=== PATIENT | female | born 1940 | race Caucasian/White ===

== ENCOUNTER → 2021-07-18 10:17 | Outpatient (BNVA) | payer SELFPAY | PROVIDERS: Visit Provider Psychiatry & Neurology Neurology ==

== ENCOUNTER → 2021-11-14 13:02 | Outpatient (BNVA) | payer MEDICARE, OTHER, SELFPAY | PROVIDERS: PCP Nurse Practitioner Adult Health; Visit Provider Psychiatry & Neurology Neurology | DX: G20 Parkinson's disease (principal); F09 Unspecified mental disorder due to known physiological condition | CPT/HCPCS: 99212 ==

== ENCOUNTER → 2022-06-17 13:53 | Outpatient (BNVA) | payer MEDICARE, OTHER, SELFPAY | PROVIDERS: PCP Nurse Practitioner Adult Health; Visit Provider Psychiatry & Neurology Neurology | DX: G20 Parkinson's disease (principal); F09 Unspecified mental disorder due to known physiological condition; Z79.899 Other long term (current) drug therapy | CPT/HCPCS: 99212 ==

== ENCOUNTER → 2022-12-19 11:23 | Outpatient (BNVA) | payer MEDICARE, OTHER, SELFPAY | PROVIDERS: PCP Nurse Practitioner Adult Health; Visit Provider Psychiatry & Neurology Neurology | DX: G20 Parkinson's disease (principal); F09 Unspecified mental disorder due to known physiological condition | CPT/HCPCS: 99212 ==

== ENCOUNTER 2023-06-23 15:14 | Outpatient (AMB) | payer MEDICARE, OTHER, SELFPAY ==
--- NOTE | 2023-06-23 15:27 | MHC.OFFVIS ---
Intake Vital Signs 06/23/23 15:30 Height 5 ft 4 in BP 118/70 Blood Pressure Location Rt brachial Position Sitting Respiration 17 Pulse 74 Pulse Source Pulse Oximeter Pulse Oximetry (%) 96 Oxygen Delivery Method Room Air Intake Visit Reasons: 6 mnts f/u appt-lvm Intake Note: Pt presents for a 6 month follow up for cognitive disorder. University Relations Vice President Required: No Allergies latex Allergy (Mild, Verified 06/23/23 15:30) unknown Medication List - Last Reconciled 06/23/23 by Yuly Natarajan MD amantadine HCl 100 mg PO BID carbidopa-levodopa 25-100 mg 1 tab PO .5 times a day 90 days carbidopa-levodopa 50-200 mg ER 1 tab PO BEDTIME citalopram 40 mg PO DAILY docusate sodium (Colace) 100 mg PO DAILY donepezil 5 mg PO DAILY ibuprofen 400 mg PO Q8H polyethylene glycol 3350 (Miralax) 17 grams PO DAILY PRN HPI HPI Comments History of Present Illness Details 82y/o female with parkinsons disease, cognitive impairment Ben DBS September 2018 comes for follow up.she has declined since her last visit.last month she had UTI . she increased her sinemet dose as recommended but decreased it after a week. Her daughter lives with her. she uses a walker and walks on her toes. she has multiple falls 1/month its usually in her kitchen but they have decreased since the daughter moved in. she misses medications sometimes. she feels her memory is worse now. she sees cats and sometimes has no insight Mild increased confusion in the evenings Bowel movements are stable- once every 4 days she has been breathing heavy and wheezing . Her daughter feels she has labored breathing . Mood is stable - has on and off depression she has help with her morning personal hygiene. she is doing the exercises at home.she plays cards and has friend that goes out with she is at a high risk of falls , does not have the upper body strength to use her wheelchair and will benefit from a motorized wheelchair [facility] Medical History Cognitive disorder Parkinsons disease Arthritis Aneurysm of internal carotid artery Surgical History S/P deep brain stimulator placement No pertinent past surgical history Social History Alcohol intake: current Patient Tobacco Use Status: Never used Tobacco Physical Exam Vital Signs: Last Vital Signs Pulse 74 06/23/23 15:30 Resp 17 06/23/23 15:30 BP 118/70 06/23/23 15:30 Pulse Ox 96 06/23/23 15:30 Oxygen Delivery Method Room Air 06/23/23 15:30 Const General: cooperative, healthy appearing and comfortable Nutritional Appearance: overweight Orientation/consciousness: patient oriented x3 HEENT Head: Yes normal to inspection Neuro Other: mild decreased blink and facial expression speech- softer No tremors FFM and foot taps decreased mildly L>R In wheel chair General: patient oriented x3 Assessment & Plan Assessment & Plan (1) Cognitive disorder: Code(s): F09 - Unspecified mental disorder due to known physiological condition (2) Parkinsons disease: Code(s): G20 - Parkinson's disease Plan zyrtec Flonase Sinemet 25/100 1 tab 4times a day ( misses the 5 th dose most of the time) sinemet CR 50/200 qhs Motorized wheel chair to help with mobility Increase DISTRIBUTION ANALYST hrs Coding Level of Care Code Est Pt Level 4 (45302) Diagnoses Cognitive disorder F09 Parkinsons disease G20
[2023-06-23 15:30] VITALS: BP 118/70; PULSE 74; RESP 17; O2SAT 96
== END 2023-06-23 16:15 | disposition home or self-care (01) ==
PROVIDERS: PCP Nurse Practitioner Adult Health; Visit Provider Psychiatry & Neurology Neurology
DX: G20.A1 Parkinson's disease without dyskinesia, without mention of fluctuations (principal); R41.89 Other symptoms and signs involving cognitive functions and awareness; R29.6 Repeated falls; Z99.3 Dependence on wheelchair; Z96.82 Presence of neurostimulator
CPT/HCPCS: 99214

== ENCOUNTER → 2023-06-23 15:14 | Outpatient (BNVA) | payer MEDICARE, OTHER, SELFPAY | PROVIDERS: PCP Nurse Practitioner Adult Health; Visit Provider Psychiatry & Neurology Neurology | DX: F09 Unspecified mental disorder due to known physiological condition (principal); G20.A1 Parkinson's disease without dyskinesia, without mention of fluctuations | CPT/HCPCS: 99212 ==

== ENCOUNTER 2023-12-25 14:58 | Outpatient (AMB) | payer MEDICARE, OTHER, SELFPAY ==
--- NOTE | 2023-12-25 15:10 | A.OFFVIS_ITS ---
Vital Signs 12/25/23 15:12 BP 136/70 Blood Pressure Location Rt brachial Position Sitting Respiration 16 Pulse 70 Pulse Source Pulse Oximeter Pulse Oximetry (%) 96 Oxygen Delivery Method Room Air Intake Visit Reasons: 6 mo f/u - LVM w/add Intake Note: Pt presents for a 6 month follow up for Cognitive disorder. Financial Reporting Specialist Required: No Allergies latex Allergy (Mild, Verified 12/25/23 15:10) unknown Medication List - Last Reconciled 12/25/23 by Yuly Natarajan MD amantadine HCl 100 mg PO BID carbidopa-levodopa 25-100 mg 1 tab PO .5 times a day 90 days carbidopa-levodopa 50-200 mg ER 1 tab PO BEDTIME citalopram 40 mg PO DAILY docusate sodium (Colace) 100 mg PO DAILY donepezil 5 mg PO DAILY ibuprofen 400 mg PO Q8H polyethylene glycol 3350 (Miralax) 17 grams PO DAILY PRN HPI Comments Details: 83y/o female with parkinsons disease, cognitive impairment Ben DBS September 2018 comes for follow up.she has multiple falls. she has electric wheelchair which she is uncomfortable using she sleeps OK SHe had nuplazid 1 tab which helped but she had leg swelling so she stopped.Her hallucinations are mild now. she frequently misses her doses of medications Her daughter lives with her. Bowel movements are stable- once every 4 days she has been breathing heavy and wheezing . Her daughter feels she has labored breathing . Mood is stable - has on and off depression she has help with her morning personal hygiene. she is doing the exercises at home.she plays cards and has friend that goes out with she is at a high risk of falls , does not have the upper body strength to use her wheelchair and will benefit from a motorized wheelchair [facility] Medical History Parkinson's disease with dyskinesia, with fluctuations Cognitive disorder Arthritis Aneurysm of internal carotid artery Surgical History S/P deep brain stimulator placement No pertinent past surgical history Social History Alcohol intake: current Patient Tobacco Use Status: Never used Tobacco Physical Exam Vital Signs: Last Vital Signs Pulse 70 12/25/23 15:12 Resp 16 12/25/23 15:12 BP 136/70 12/25/23 15:12 Pulse Ox 96 12/25/23 15:12 Oxygen Delivery Method Room Air 12/25/23 15:12 Const General: cooperative, healthy appearing and comfortable Nutritional Appearance: overweight Orientation/consciousness: patient oriented x3 HEENT Head: Yes normal to inspection Neuro Other: mild decreased blink and facial expression speech- softer No tremors FFM and foot taps decreased mildly L>R In wheel chair General: patient oriented x3 Assessment & Plan Assessment & Plan (1) Cognitive disorder: Code(s): F09 - Unspecified mental disorder due to known physiological condition Category: Medical (2) Parkinson's disease with dyskinesia, with fluctuations: Code(s): G20.B2 - Parkinson's disease with dyskinesia, with fluctuations Category: Medical (3) S/P deep brain stimulator placement: Comment: September 2018 Code(s): Z96.89 - Presence of other specified functional implants Category: Surgical Plan zyrtec Flonase Sinemet 25/100 1 tab 4times a day ( misses the 5 th dose most of the time) sinemet CR 50/200 qhs Motorized wheel chair to help with mobility Increase OCC MED PHYSICIAN hrs Medications: New fluticasone propionate 50 mcg/actuation (Flonase Allergy Relief) administer into each nostril 1 spray intranasal BID 16 grams 6RF Coding Level of Care Code Est Pt Level 4 (71990) Complex EM visit Add On G2211 Diagnoses Cognitive disorder F09 Parkinson's disease with dyskinesia, with fluctuations G20.B2 S/P deep brain stimulator placement Z96.89
[2023-12-25 15:12] VITALS: BP 136/70; PULSE 70; RESP 16; O2SAT 96
== END 2023-12-25 15:52 | disposition home or self-care (01) ==
PROVIDERS: PCP Nurse Practitioner Adult Health; Visit Provider Psychiatry & Neurology Neurology
DX: G20.B2 Parkinson's disease with dyskinesia, with fluctuations (principal); R41.89 Other symptoms and signs involving cognitive functions and awareness; Z96.82 Presence of neurostimulator
CPT/HCPCS: 99214; G2211

== ENCOUNTER → 2023-12-25 14:58 | Outpatient (BNVA) | payer MEDICARE, OTHER, SELFPAY | PROVIDERS: PCP Nurse Practitioner Adult Health; Visit Provider Psychiatry & Neurology Neurology | DX: G20.B2 Parkinson's disease with dyskinesia, with fluctuations (principal); F09 Unspecified mental disorder due to known physiological condition; Z96.82 Presence of neurostimulator; Z99.3 Dependence on wheelchair | CPT/HCPCS: 99212 ==

== ENCOUNTER 2024-07-26 15:29 | Outpatient (AMB) | payer MEDICARE, OTHER, SELFPAY ==
--- NOTE | 2024-07-26 15:30 | A.OFFVIS_ITS ---
Vital Signs 07/26/24 15:34 BP 140/72 H Blood Pressure Location Rt brachial Position Sitting Pulse 68 Pulse Source Pulse Oximeter Pulse Oximetry (%) 96 Oxygen Delivery Method Room Air Intake Visit Reasons: 6 month f/u Intake Note: Patient presents for 6 month follow up Allergies latex Allergy (Mild, Verified 07/26/24 15:32) unknown Medication List - Last Reconciled 07/26/24 by Yuly Natarajan MD amantadine HCl 100 mg PO BID carbidopa-levodopa 25-100 mg 1 tab PO .5 times a day 90 days carbidopa-levodopa 50-200 mg ER 1 tab PO BEDTIME citalopram 40 mg PO DAILY docusate sodium (Colace) 100 mg PO DAILY donepezil 5 mg PO DAILY fluticasone propionate 50 mcg/actuation (Flonase Allergy Relief) 1 spray intranasal BID ibuprofen 400 mg PO Q8H pimavanserin (Nuplazid) 34 mg PO DAILY polyethylene glycol 3350 (Miralax) 17 grams PO DAILY PRN HPI Comments Details: 83y/o female with parkinsons disease, cognitive impairment Ben DBS September 2018 comes for follow up.No falls since she started using her wheel chair. she sleeps OK SHe restarted nuplazid when he hallucinations increased. .Her hallucinations are mild now and usually in the evening. she frequently misses her doses of medications. when she misses multiple doses she starts with sundowning and hallucinations. Her daughter lives with her. Bowel movements are stable- once every 4 days she has been breathing heavy and wheezing . Her daughter feels she has labored breathing . Mood is stable - has on and off depression she has help with her morning personal hygiene. she is doing the exercises at home. she used to play cards . she has a friend that takes her to lunch weekly shopping. [facility] Medical History Parkinson's disease with dyskinesia, with fluctuations Cognitive disorder Arthritis Aneurysm of internal carotid artery Surgical History S/P deep brain stimulator placement No pertinent past surgical history Social History Alcohol intake: current Patient Tobacco Use Status: Never used Tobacco Physical Exam Const General: cooperative, healthy appearing and comfortable Orientation/consciousness: patient oriented x3 HEENT Head: Yes normal to inspection Neuro Other: mild decreased blink and facial expression speech- softer No tremors FFM and foot taps decreased mildly L>R In wheel chair General: patient oriented x3 Assessment & Plan Assessment & Plan (1) Cognitive disorder: Code(s): F09 - Unspecified mental disorder due to known physiological condition Category: Medical (2) Parkinson's disease with dyskinesia, with fluctuations: Code(s): G20.B2 - Parkinson's disease with dyskinesia, with fluctuations Category: Medical (3) S/P deep brain stimulator placement: Comment: September 2018 Code(s): Z96.89 - Presence of other specified functional implants Category: Surgical Plan zyrtec Flonase Sinemet 25/100 1 tab 4times a day ( misses the 5 th dose most of the time) sinemet CR 50/200 qhs Motorized wheel chair to help with mobility Coding Level of Care Code Est Pt Level 4 (42319) Complex EM visit Add On G2211 Diagnoses Cognitive disorder F09 Parkinson's disease with dyskinesia, with fluctuations G20.B2 S/P deep brain stimulator placement Z96.89
[2024-07-26 15:34] VITALS: BP 140/72; PULSE 68; O2SAT 96
--- OUTSIDE RECORDS SUMMARY | 2024-07-26 18:43 | XMS_ITS | Clinical Summary ---
Author Organization Unknown Care Team Providers Care Reset Merchandiser Name Role Phone ROS CANAL BOAT OPERATOR, DAYTON Unavailable Unavailabl e ACE PT, CAMERON Unavailable Unavailable RODO SPANISH LECTURER, CAMERON Unavailable Unavailable HERMELINDO OT, FRANCIS Unavailable Unavailabl e Payers Payer Name Policy Type Policy Number Effective Date Expira tion Date MEDICARE.NGS.PDGM [id number] Problems Condition Name Condition Details Condition Category Status Onset Date Resolution Date Last Treatment Date Treating Clinician Comments PARKINSON'S DISEASE WITH DYSKINESIA, WITH FLUCTUATIONS Active 04-03 00:00: 00 REPEATED FALLS Active 04-03 00:00: 00 ESSENTIAL (PRIMARY) HYPERTENSION Active 07-07 00:00: 00 SOLITARY PULMONARY NODULE Active 04-03 00:00: 00 FREQUENCY OF MICTURITION Active 04-03 00:00: 00 URGENCY OF URINATION Active 04-03 00:00: 00 OTHER HAMMER TOE(S) (ACQUIRED), UNSPECIFIED FOOT Active 04-03 00:00: 00 OTHER CONGENITAL VALGUS DEFORMITIES OF FEET Active 04-03 00:00: 00 MIXED HYPERLIPIDEM IA Active 07-07 00:00: 00 VITREOUS DEGENERATION , UNSPECIFIED EYE Active 07-07 00:00: 00 MAJOR DEPRESSIVE DISORDER, SINGLE EPISODE, MODERATE Active 07-07 00:00: 00 PRESENCE OF NEUROSTIMULA TOR Active 4-14 00:00: 00 PERSONAL HISTORY OF COVID-19 Active 10-30 00:00: 00 PERSONAL HISTORY OF NICOTINE DEPENDENCE Active 07-07 00:00: 00 HISTORY OF FALLING Active 04-03 00:00: 00 Allergies, Adverse Reactions, Alerts Allergy Name Allergy Type Status Severity Reaction(s) Onset Date Inactive Date Treating Clinician Comments NO KNOWN ALLERGIES Propensity to adverse reactions Active 04-05 10:06: 04 Medications Ordered Medication Name Filled Medication Name Start Date Stop Date Current Medication? Ordering Clinician Indication Dosage Frequency Signature (SIG) Comments Components amantadine HCl 100 mg capsule 03-28 00:00: 00 Yes [id number] PD Per instruc tions TWICE A DAY Per instructio ns TWICE A DAY (route: oral) Med Classific ation: Central Nervous System Agents fluticasone propionate 50 mcg/actuati on nasal spray,suspe nsion 03-22 00:00: 00 Yes [id number] Per instruc tions TWICE A DAY Per instructio ns TWICE A DAY (route: nasal) Med Classific ation: Respirato ry Therapy Agents carbidopa 25 mg-levodopa 100 mg tablet 03-19 00:00: 00 Yes [id number] PD Per instruc tions 5 TIMES A DAY FOR 90 DAYS Per instructio ns 5 TIMES A DAY FOR 90 DAYS (route: oral) Med Classific ation: Central Nervous System Agents carbidopa 50 mg-levodopa 200 mg-entacapo ne 200 mg tablet 2023-07 00:00: 00 Yes [id number] PD 1 tablet BEDTIME 1 tablet BEDTIME (route: oral) Med Classific ation: Central Nervous System Agents citalopram 40 mg tablet 2023-07 00:00: 00 Yes [id number] DEPRESSION 1 tablet DAILY 1 tablet DAILY (route: oral) Med Classific ation: Central Nervous System Agents donepezil 5 mg tablet 2023-07 00:00: 00 Yes [id number] ALZHEIMER'S 1 tablet DAILY 1 tablet DAILY (route: oral) Med Classific ation: Cognitive Disorder Therapy ibuprofen 200 mg capsule 2023-07 00:00: 00 Yes [id number] PAIN 1-2 capsule 2 TIMES DAILY 1-2 capsule 2 TIMES DAILY (route: oral) Med Classific ation: Analgesic , Anti-infl ammatory or Antipyret ic Vital Signs Vital Name Observation Time Observation Value Commen ts Temperature 2024-06-04 14:23:00.000 97.6 [degF] Temperature 2024-05-19 11:36:00.000 97.7 [degF] Temperature 2024-05-18 11:08:00.000 98.1 [degF] Temperature 2024-05-12 10:41:00.000 98.2 [degF] Temperature 2024-05-11 10:55:00.000 98.1 [degF] Temperature 2024-05-05 21:23:00.000 98 [degF] Temperature 2024-05-05 14:04:00.000 97.9 [degF] Temperature 2024-04-27 14:30:00.000 97.4 [degF] Temperature 2024-04-23 11:41:00.000 98.1 [degF] Temperature 2024-04-21 11:11:00.000 97.9 [degF] Temperature 2024-04-16 11:14:00.000 97.9 [degF] Temperature 2024-04-12 10:58:00.000 97 [degF] Temperature 2024-04-07 10:39:00.000 97.6 [degF] BMI (%) 2024-04-07 10:39:00.000 30 kg/m2 Height 2024-04-07 10:39:00.000 64 [in_us] Pulse 2024-06-04 14:23:00.000 70 /min Pulse 2024-05-19 11:36:00.000 76 /min Pulse 2024-05-18 11:08:00.000 78 /min Pulse 2024-05-12 10:41:00.000 72 /min Pulse 2024-05-11 10:55:00.000 68 /min Pulse 2024-05-05 21:23:00.000 72 /min Pulse 2024-05-05 14:04:00.000 70 /min Pulse 2024-04-27 14:30:00.000 68 /min Pulse 2024-04-23 11:41:00.000 76 /min Pulse 2024-04-21 11:11:00.000 65 /min Pulse 2024-04-16 11:14:00.000 82 /min Pulse 2024-04-12 10:58:00.000 61 /min Pulse 2024-04-07 10:39:00.000 75 /min O2 Saturation (%) 2024-06-04 14:23:00.000 97 % O2 Saturation (%) 2024-05-19 11:36:00.000 98 % O2 Saturation (%) 2024-05-18 11:08:00.000 96 % O2 Saturation (%) 2024-05-12 10:41:00.000 95 % O2 Saturation (%) 2024-05-11 10:55:00.000 97 % O2 Saturation (%) 2024-05-05 21:23:00.000 98 % O2 Saturation (%) 2024-05-05 14:04:00.000 96 % O2 Saturation (%) 2024-04-27 14:30:00.000 95 % O2 Saturation (%) 2024-04-23 11:41:00.000 97 % O2 Saturation (%) 2024-04-21 11:11:00.000 94 % O2 Saturation (%) 2024-04-16 11:14:00.000 97 % O2 Saturation (%) 2024-04-12 10:58:00.000 94 % Respirations 2024-06-04 14:23:00.000 18 /min Respirations 2024-05-19 11:36:00.000 18 /min Respirations 2024-05-18 11:08:00.000 16 /min Respirations 2024-05-12 10:41:00.000 18 /min Respirations 2024-05-11 10:55:00.000 17 /min Respirations 2024-05-05 21:23:00.000 16 /min Respirations 2024-05-05 14:04:00.000 18 /min Respirations 2024-04-27 14:30:00.000 18 /min Respirations 2024-04-23 11:41:00.000 17 /min Respirations 2024-04-21 11:11:00.000 18 /min Respirations 2024-04-16 11:14:00.000 16 /min Respirations 2024-04-12 10:58:00.000 18 /min Respirations 2024-04-07 10:39:00.000 18 /min Weight (lbs) 2024-04-07 10:39:00.000 180 [lb_av] Systolic Blood Pressure 2024-06-04 14:23:00.000 130 mm [Hg] Systolic Blood Pressure 2024-05-19 11:36:00.000 146 mm [Hg] Systolic Blood Pressure 2024-05-18 11:08:00.000 134 mm [Hg] Systolic Blood Pressure 2024-05-12 10:41:00.000 136 mm [Hg] Systolic Blood Pressure 2024-05-11 10:55:00.000 148 mm [Hg] Systolic Blood Pressure 2024-05-05 21:23:00.000 132 mm [Hg] Systolic Blood Pressure 2024-05-05 14:04:00.000 146 mm [Hg] Systolic Blood Pressure 2024-04-27 14:30:00.000 160 mm [Hg] Systolic Blood Pressure 2024-04-23 11:41:00.000 140 mm [Hg] Systolic Blood Pressure 2024-04-21 11:11:00.000 116 mm [Hg] Systolic Blood Pressure 2024-04-16 11:14:00.000 150 mm [Hg] Systolic Blood Pressure 2024-04-12 10:58:00.000 116 mm [Hg] Systolic Blood Pressure 2024-04-07 10:39:00.000 110 mm [Hg] Diastolic Blood Pressure 2024-06-04 14:23:00.000 72 mm [Hg] Diastolic Blood Pressure 2024-05-19 11:36:00.000 80 mm [Hg] Diastolic Blood Pressure 2024-05-18 11:08:00.000 82 mm [Hg] Diastolic Blood Pressure 2024-05-12 10:41:00.000 78 mm [Hg] Diastolic Blood Pressure 2024-05-11 10:55:00.000 88 mm [Hg] Diastolic Blood Pressure 2024-05-05 21:23:00.000 78 mm [Hg] Diastolic Blood Pressure 2024-05-05 14:04:00.000 74 mm [Hg] Diastolic Blood Pressure 2024-04-27 14:30:00.000 82 mm [Hg] Diastolic Blood Pressure 2024-04-23 11:41:00.000 90 mm [Hg] Diastolic Blood Pressure 2024-04-21 11:11:00.000 70 mm [Hg] Diastolic Blood Pressure 2024-04-16 11:14:00.000 90 mm [Hg] Diastolic Blood Pressure 2024-04-12 10:58:00.000 62 mm [Hg] Diastolic Blood Pressure 2024-04-07 10:39:00.000 64 mm [Hg] Plan of Treatment Planned Activity Planned Date Details Comments Future Scheduled Test THERAPEUTI C EXERCISES AND ESTABLISHING A HOME EXERCISE PROGRAM (PT/SPANISH LECTURER) [code = THERAPEUTIC EXERCISES AND ESTABLISHING A HOME EXERCISE PROGRAM (PT/SPANISH LECTURER)] Future Scheduled Test PT/SPANISH LECTURER TO IDENTIFY FALL RISK FACTORS; EDUCATE THE PATIENT/CAREGIVER ON WAYS TO REDUCE FALL RISK FACTORS AND ESTABLISH HOME EXERCISE PROGRAM TO MINIMIZE FALL RISK. MAY TEACH THE PATIENT FLOOR RECOVERY WHEN CLINICALLY APPROPRIATE [code = PT/SPANISH LECTURER TO IDENTIFY FALL RISK FACTORS; EDUCATE THE PATIENT/CAREGIVER ON WAYS TO REDUCE FALL RISK FACTORS AND ESTABLISH HOME EXERCISE PROGRAM TO MINIMIZE FALL RISK. MAY TEACH THE PATIENT FLOOR RECOVERY WHEN CLINICALLY APPROPRIATE] Future Scheduled Test BED TRANSF ERS (PT/SPANISH LECTURER) [code = BED TRANSFERS (PT/SPANISH LECTURER)] Future Scheduled Test SIT TO/FRO M STAND TRANSFERS (PT/SPANISH LECTURER) [code = SIT TO/FROM STAND TRANSFERS (PT/SPANISH LECTURER)] Future Scheduled Test PT / SPANISH LECTURER T O MONITOR AND EDUCATE ON OXYGEN SATURATION DURING ADLS/IADLS, NOTIFY PHYSICIAN AND/OR THE RN CLINICAL HYDRAULIC SPINNER FOR PHYSICIAN NOTIFICATION AND IF O2 SATS BELOW PHYSICIAN ORDERED PARAMETERS AFTER 10 MIN OF REST [code = PT / SPANISH LECTURER TO MONITOR AND EDUCATE ON OXYGEN SATURATION DURING ADLS/IADLS, NOTIFY PHYSICIAN AND/OR THE RN CLINICAL HYDRAULIC SPINNER FOR PHYSICIAN NOTIFICATION AND IF O2 SATS BELOW PHYSICIAN ORDERED PARAMETERS AFTER 10 MIN OF REST] Future Scheduled Test PT / SPANISH LECTURER M AY EDUCATE ON PAIN MANAGEMENT CLINICALLY INDICATED, INCLUDING NON-PHARMACOLOGICAL PAIN REDUCTION TECHNIQUES [code = PT / SPANISH LECTURER MAY EDUCATE ON PAIN MANAGEMENT CLINICALLY INDICATED, INCLUDING NON-PHARMACOLOGICAL PAIN REDUCTION TECHNIQUES ] Future Scheduled Test AGENCY MAY PERFORM A RESUMPTION OF CARE VISIT FOLLOWING ANY HOSPITAL ADMISSION. PT TO EVALUATE, OBSERVE / ASSESS, AND MONITOR, SPANISH LECTURER TO OBSERVE AND MONITOR, PROVIDE SKILLED THERAPEUTIC INTERVENTION, ACTIVITY, EDUCATION, AND TRAINING TO ADDRESS; [code = AGENCY MAY PERFORM A RESUMPTION OF CARE VISIT FOLLOWING ANY HOSPITAL ADMISSION. PT TO EVALUATE, OBSERVE / ASSESS, AND MONITOR, SPANISH LECTURER TO OBSERVE AND MONITOR, PROVIDE SKILLED THERAPEUTIC INTERVENTION, ACTIVITY, EDUCATION, AND TRAINING TO ADDRESS;] Future Scheduled Test WHEELCHAIR MOBILITY AND MANAGEMENT (PT/SPANISH LECTURER) [code = WHEELCHAIR MOBILITY AND MANAGEMENT (PT/SPANISH LECTURER)] Future Scheduled Test AGENCY MAY PERFORM A RESUMPTION OF CARE VISIT FOLLOWING ANY HOSPITAL ADMISSION. OT TO EVALUATE, OBSERVE / ASSESS, AND MONITOR, MITCHEL TO OBSERVE AND MONITOR, PROVIDE SKILLED THERAPEUTIC INTERVENTION, ACTIVITY, EDUCATION, AND TRAINING TO ADDRESS; ACTIVITIES OF DAILY LIVING (OT/INDUSTRIAL GARAGE SERVICER) TOILET TRANSFER (OT/INDUSTRIAL GARAGE SERVICER) BATH/SHOWER TRANSFER (OT/MITCHEL) HOME ACTIVITY / EXERCISE PROGRAM (OT/INDUSTRIAL GARAGE SERVICER) OT/INDUSTRIAL GARAGE SERVICER TO MONITOR AND EDUCATE ON OXYGEN SATURATION DURING ADLS/IADLS, NOTIFY PHYSICIAN AND/OR THE RN CLINICAL HYDRAULIC SPINNER FOR PHYSICIAN NOTIFICATION AND IF O2 SATS BELOW 90% AFTER 10 MIN OF REST. OT/MITCHEL MAY EDUCATE ON PAIN MANAGEMENT CLINICALLY INDICATED, INCLUDING NON-PHARMACOLOGICAL PAIN REDUCTION TECHNIQUES AND USE OF CRYOTHERAPY OR HEAT UP TO 20 MIN AT A TIME FOR PAIN MANAGEMENT TO BLE OT / INDUSTRIAL GARAGE SERVICER TO IDENTIFY FALL RISK FACTORS; EDUCATE THE PATIENT/CAREGIVER ON WAYS TO REDUCE FALL RISK FACTORS AND ESTABLISH HOME EXERCISE PROGRAM TO MINIMIZE FALL RISK. MAY TEACH THE PATIENT FLOOR RECOVERY WHEN CLINICALLY APPROPRIATE. OT / INDUSTRIAL GARAGE SERVICER TO EDUCATE ON PARKINSONS SELF MANAGEMENT [code = AGENCY MAY PERFORM A RESUMPTION OF CARE VISIT FOLLOWING ANY HOSPITAL ADMISSION. OT TO EVALUATE, OBSERVE / ASSESS, AND MONITOR, INDUSTRIAL GARAGE SERVICER TO OBSERVE AND MONITOR, PROVIDE SKILLED THERAPEUTIC INTERVENTION, ACTIVITY, EDUCATION, AND TRAINING TO ADDRESS; ACTIVITIES OF DAILY LIVING (OT/MITCHEL) TOILET TRANSFER (OT/MITCHEL) BATH/SHOWER TRANSFER (OT/INDUSTRIAL GARAGE SERVICER) HOME ACTIVITY / EXERCISE PROGRAM (OT/MITCHEL) OT/INDUSTRIAL GARAGE SERVICER TO MONITOR AND EDUCATE ON OXYGEN SATURATION DURING ADLS/IADLS, NOTIFY PHYSICIAN AND/OR THE RN CLINICAL HYDRAULIC SPINNER FOR PHYSICIAN NOTIFICATION AND IF O2 SATS BELOW 90% AFTER 10 MIN OF REST. OT/INDUSTRIAL GARAGE SERVICER MAY EDUCATE ON PAIN MANAGEMENT CLINICALLY INDICATED, INCLUDING NON-PHARMACOLOGICAL PAIN REDUCTION TECHNIQUES AND USE OF CRYOTHERAPY OR HEAT UP TO 20 MIN AT A TIME FOR PAIN MANAGEMENT TO BLE OT / MITCHEL TO IDENTIFY FALL RISK FACTORS; EDUCATE THE PATIENT/CAREGIVER ON WAYS TO REDUCE FALL RISK FACTORS AND ESTABLISH HOME EXERCISE PROGRAM TO MINIMIZE FALL RISK. MAY TEACH THE PATIENT FLOOR RECOVERY WHEN CLINICALLY APPROPRIATE. OT / INDUSTRIAL GARAGE SERVICER TO EDUCATE ON PARKINSONS SELF MANAGEMENT] Goal 2024-06-04 Patient Goal - I WANT TO NO T FALL DOWN Goal Provider Goal - PATIENT WILL DEMONSTRATE INDEPENDENCE WITH PERFORMANCE OF SEATED HEP AND STATIC STAND ACTIVITY IN 5 WEEKS TO PROMOTE IMPROVED FUNCTIONAL MOBILITY Goal Provider Goal - PT LTG: PATIENT/CAREGIVER WILL DEMONSTRATE ADHERENCE TO FALL REDUCTION SELF-MANAGEMENT AND REDUCING FALL RISK FACTORS TO MINIMIZE FALL RISK BY END OF EPISODE PT LTG: PATIENT WILL BE INDEPENDENT WITH IMPLEMENTATION OF HEP WITHIN 4 WEEKS PT LTG: CAREGIVER WILL BE INDEPENDENT ASSISTING PATIENT TO COMPLETE HEP WITHIN 4 WEEKS Goal Provider Goal - Goal Provider Goal - PATIENT WILL IMPROVE HOUSEHOLD TRANSFERS FROM CGA TO INDEPENDENT IN 5 WEEKS ATWC LEVEL TO PROMOTE IMPROVED FUNCTIONAL MOBILITY Goal Provider Goal - PT LTG: PATIENT WILL MAINTAIN OXYGEN SATURATION WITHIN PHYSICIAN ORDERED PARAMETERS THROUGHOUT EPISODE OF CARE. Goal Provider Goal - PT GOAL: PATIENT WILL DEMONSTRATE UNDERSTANDING OF PAIN MANAGEMENT TECHNIQUES EVIDENCED BY REDUCED PAIN Goal Provider Goal - Goal Provider Goal - PATIENT WILL DEMO INDEP USE OF POWER WC THROUGHOUT HOME ENVIRONMENT IN 5 WEEKS TO PROMOTE IMPROVED FUNCTIONAL MOBILITY Goal Provider Goal - OT LTG: PATIENT WILL DEMONSTRATE IMPROVEMENT IN MODIFIED KIMBER INDEX SCORE FROM 69 TO 80 INDICATING DECREASED DEPENDENCY ON CAREGIVER ASSISTANCE WITH ACTIVITIES OF DAILY LIVING WITHIN 6 WEEKA OT STG: PATIENT WILL IMPROVE TOILET TRANSFER TO CGA WITHIN 4 WEEKS OT LTG: PATIENT WILL DEMONSTRATE IMPROVED ABILITY TO PERFORM TOILET TRANSFERS TO REDUCE FALL RISK AND RISK OF INCONTINENCE AND UTI DEVELOPMENT FROM MIN A TO INDEPENDENT WITHIN 6 WEEKS OT STG: PATIENT WILL IMPROVE SHOWER TRANSFER TO MIN A WITHIN 4 WEEKS OT LTG: PATIENT WILL DEMONSTRATE IMPROVED ABILITY AND SAFETY TO PERFORM BATH/SHOWER TRANSFER FROM MOD A TO SBA WITHIN 6 WEEKS OT STG: PATIENT WILL IMPROVE BUE HEP TO MIN A WITHIN 4 WEEKS OT LTG: PATIENT WILL DEMONSTRATE IMPROVED STRENGTH/COORDINATION AND/OR DEXTERITY BUE FOR IMPROVED PARTICIPATION IN ADLS EVIDENCED BY IMPROVED ADLS/TRANSFERS FROM MOD A TO INDEPENDENT WITHIN 6 WEEKS OT LTG: PATIENT WILL MAINTAIN OXYGEN SATURATION WITHIN PHYSICIAN ORDERED PARAMETERS THROUGHOUT THE EPISODE OF CARE. OT LTG: PATIENT WILL DEMONSTRATE UNDERSTANDING OF PAIN MANAGEMENT TECHNIQUES EVIDENCED BY REDUCED PAIN IN BLE TO 0/10 WITHIN 6 WEEKS OT LTG: PATIENT/CAREGIVER WILL BE ABLE TO IMPLEMENT RECOMMENDATIONS SPECIFIC TO FALL REDUCTION FOR IMPROVED ADL/IADL COMPLETION AND HOME SAFETY BY END OF EPISODE. OT LTG: PATIENT WILL BE INDEPENDENT WITH IMPLEMENTATION OF HEP WITHIN 6 WEEKS OT GOAL: PATIENT/CAREGIVER WILL VERBALIZE UNDERSTANDING OF A PARKINSON'S SELF-MANAGEMENT AND LIFE-STYLE CHANGES BY END OF EPISODE. Reason for Visit INDEPENDENT WITH USE OF ASSISTIVE DEVICE Encounters Start Date/Time End Date/Time Encounter Type Admission Type Attending [facility] Care Facility Care Department Encounter ID Discharge Date Discharge Status Discharge Condition Discharge Reason Percent Goals Met 2024-04-07 00:00:00 2024-06-04 00:00:00 Outpatient NEW ADMISSION [facility] [id number] 2024-06-04 00:00:00 DISCHARGE TO HOME OR SELF CARE INDEPENDEN T WITH USE OF ASSISTIVE DEVICE HH OR [facility]- GOALS MET 45.00
== END 2024-07-26 16:05 | disposition home or self-care (01) ==
PROVIDERS: PCP Nurse Practitioner Adult Health; Visit Provider Psychiatry & Neurology Neurology
DX: G20.B2 Parkinson's disease with dyskinesia, with fluctuations (principal); R41.89 Other symptoms and signs involving cognitive functions and awareness; Z96.82 Presence of neurostimulator
CPT/HCPCS: 99214; G2211

== ENCOUNTER → 2024-07-26 15:29 | Outpatient (BNVA) | payer MEDICARE, OTHER, SELFPAY | PROVIDERS: PCP Nurse Practitioner Adult Health; Visit Provider Psychiatry & Neurology Neurology | DX: G20.B2 Parkinson's disease with dyskinesia, with fluctuations (principal); F09 Unspecified mental disorder due to known physiological condition; Z96.89 Presence of other specified functional implants | CPT/HCPCS: 99212 ==

== ENCOUNTER 2024-11-12 12:34 | Outpatient (AMB) | payer MEDICARE, OTHER, SELFPAY ==
--- NOTE | 2024-11-12 12:35 | A.OFFVIS_ITS ---
Intake Visit Reasons: F/U discharge OK per MD Allergies latex Allergy (Mild, Verified 11/12/24 12:35) unknown Medication List - Last Reconciled 11/12/24 by Yuly Natarajan MD amantadine HCl 100 mg PO BID carbidopa-levodopa 25-100 mg 1 tab PO QID 90 days carbidopa-levodopa 50-200 mg ER 1 tab PO BEDTIME citalopram 40 mg PO DAILY docusate sodium (Colace) 100 mg PO DAILY donepezil 5 mg PO DAILY fluticasone propionate 50 mcg/actuation (Flonase Allergy Relief) 1 spray intranasal BID ibuprofen 400 mg PO Q8H pimavanserin (Nuplazid) 34 mg PO DAILY polyethylene glycol 3350 (Miralax) 17 grams PO DAILY PRN HPI Comments Details: 83y/o female with parkinsons disease, cognitive impairment Ben DBS September 2018 calls for follow up. she had a battery replacement 2 days ago . she fell out her wheel chair and her hallucinations have increased . she is better now. History from initial visit- SHe restarted nuplazid when he hallucinations increased. .Her hallucinations are mild now and usually in the evening. she frequently misses her doses of medications. when she misses multiple doses she starts with sundowning and hallucinations. Her daughter lives with her. Bowel movements are stable- once every 4 days she has been breathing heavy and wheezing . Her daughter feels she has labored breathing . Mood is stable - has on and off depression she has help with her morning personal hygiene. she is doing the exercises at home. she used to play cards . she has a friend that takes her to lunch weekly shopping. [facility] Medical History Parkinson's disease with dyskinesia, with fluctuations Cognitive disorder Arthritis Aneurysm of internal carotid artery Surgical History S/P deep brain stimulator placement No pertinent past surgical history Social History Alcohol intake: current Patient Tobacco Use Status: Never used Tobacco Physical Exam Neuro Other: Alert and awake . Telehealth Telehealth Telehealth Platform: Telephone Location of provider rendering services: practice address Location of patient: address on file Patient Identification confirmed using: Name, : Yes Telehealth method: voice only Patient verbally consented to treatment: Yes Patient verbally consented to billing insurance company: Yes Patient informed of any privacy concerns related to visit: Yes Assessment & Plan Assessment & Plan (1) Cognitive disorder: Code(s): F09 - Unspecified mental disorder due to known physiological condition Category: Medical (2) Parkinson's disease with dyskinesia, with fluctuations: Code(s): G20.B2 - Parkinson's disease with dyskinesia, with fluctuations Category: Medical (3) S/P deep brain stimulator placement: Comment: September 2018 Code(s): Z96.89 - Presence of other specified functional implants Category: Surgical Plan Sinemet 25/100 1 -1-1.5-1.5 sinemet CR 50/200 qhs The increase in psychosis is likely related to progression of disease, effects of GA sedation and new battery Medications: Changed From carbidopa-levodopa 25-100 mg 2 tabs PO QID 90 days 720 tabs 1RF To carbidopa-levodopa 25-100 mg 8am 11am 1 1/2 at 2pm and 1 1/2 at 5pm 1 tab PO QID 90 days 360 tabs 1RF Coding Level of Care Code Tele Est Pt Level 4 (86793) Diagnoses Cognitive disorder F09 Parkinson's disease with dyskinesia, with fluctuations G20.B2 S/P deep brain stimulator placement Z96.89
--- OUTSIDE RECORDS SUMMARY | 2024-11-12 12:37 | XMS_ITS | Encounter Summary ---
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 Procedures HI INSJ/RPLCMT CRANIAL NEUROSTIM PULSE GENERATOR REPLACEMENT OF VNS BATTERY Referral ID Status Reason Start Date Expiration Date Visits Re quested Visits Authorized [id number] 1 1 Encounter Details Date Type Department Care Team (Late st Contact Info) Description 11/10/2024 10:42 AM EDT Anesthesia Event [facility] [address] [place] [address] Betty Goss MD [address] [place] [address] Anesthesia Record Procedure Summary Procedure Name Responsible Anesthesiologist Anesthesia Start Time Anesthesia Stop Time REPLACEMENT OF DBS BATTERY LEFT (Left) Betty Goss MD 11/10/24 1042 11/10/24 1154 Events Date Time Event Comment 11/10/2024 1023 AN Equip Check 1039 1042 An Start 1042 An Start Data 1054 An Induction 1057 AN LMA 1058 Anesthesia Ready 1143 AN Emergence 1143 AN Lma 1147 AN Pt Transferred 1147 AM Pt Transferred 1147 AN Stop Data 1154 An Stop 1154 Handoff to Receiving I compl eted my handoff to the receiving clinician during which we: 1. Identified the patient 2. Identified the responsible provider 3. Reviewed pertinent medical history 4. Discussed the surgical or procedural course 5. Reviewed intraoperative management and issues during anesthesia 6. Set expectations for the post-procedure period 7. Allowed opportunity for questions and acknowledgement of understanding. Meds Name Total fentaNYL 50 mcg/mL injection 100 mcg propofol 10 mg/mL BOLUS 220 mg ondansetron (ZOFRAN) 2 mg/mL injection 4 mg phenylephrine (OCTAVIO-SYNEPHRINE) IV syring e 100 mcg/mL in 10 mL PREMIX 100 mcg ceFAZolin 2 g in 20 mL SWFI syringe (pre mix) 2 g LR 500 mL * Agents Name O2 N2O Air Sevoflurane * Blood No blood administrations on file. Lines, Drains, and Airways Type Details Placement Removal Incision (Adult, Obstetrics, Pediatrics) 11/10/24; 1128; Left; chest; baci ointment, telfa and medipore 11/10/24 1128 by Christy Maxwell RN PIV-Single luman 11/10/24; 1000; metacarpal vein (top of hand), left; tjqw-bhs-ltargn catheter system; 20 gauge; 0; distraction, tolerated well; 11/10/24; 1329 11/10/24 1000 by Fauzia Reece RN 11/10/24 1329 by Yumiko Smith RN Airway-Oral/ELECTROGALVANIZING MACHINE OPERATOR 11/10/24; 1117 (crea kj via procedure documentation); Atraumatic LMA placement with good seal. Secured with tape avoiding the lips. ; 11/10/24; 1143 11/10/24 1117 by Betty Goss MD 11/10/24 1143 by Betty Goss MD documented in this encounter Social History Tobacco Use Types Packs/Day Years Used Date Smoking Tobacco: Former Cigarettes Smokeless Tobacco: Never Alcohol Use Standard Drinks/Week Comments Yes 0 (1 standard drink = 0.6 oz pur e alcohol) MONTHLY AUDIT-C Answer Date Recorded Q1: How often do you have a drink containing alc ohol? Monthly or less 11/08/2024 Q2: How many drinks containi ng alcohol do you have on a typical day when you are drinking? 1 or 2 11/08/2024 Q3: How often do you have si x or more drinks on one occasion? Never 11/08/2024 Comments Unknown Sex and Gender Information Value Date Recorded Sex Assigned at Female 11/10/2024 8:40 AM EDT Legal Sex Female 10:42 AM EDT Gender Identity Female 11/10/2024 8:40 AM EDT Sexual Orientation Not on file documented as of this encounter Last Filed Vital Signs Vital Sign Reading Time Taken Comments Blood Pressure - - Pulse - - Temperature - - Respiratory Rate 2 11/10/2024 11:45 AM EDT Oxygen Saturation 98% 11/10/2024 11:46 AM EDT Inhaled Oxygen Concentration - - Weight - - Height - - Body Mass Index - - documented in this encounter OR Notes * Anesthesia Postprocedure Evaluation - Betty Goss MD - 11/11/2024 3:51 PM EDT Department of Anesthesiology Post-Anesthesia Evaluation Patient Name: Cristal Wahl : 1940 Admission Date: 11/10/2024 Attending Provider: Rita att. 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 Last vitals Vitals Value Taken Time BP 145/67 11/10/24 13:01 Temp 37.1 ??C (98.7 ??F) 11/10/24 13:00 Pulse 73 11/10/24 13:10 Resp 16 11/10/24 13:10 SpO2 91 % 11/10/24 13:10 Vitals shown include unfiled device data. Evaluation Vital signs are in the patient's normal range: Yes Respiratory function stable; airway patent: Yes Cardiovascular function and hydration status are stable: Yes Mental status recovered; patient participates in evaluation: Yes Pain control satisfactory: Yes Nausea and vomiting control is satisfactory: Yes This is an OB patient: No Quality Metrics -Opioid medication given during intra or post-procedure care I reviewed the patient's chart, notes, and vital signs. I received no contact about any issues withthis patient. Betty Goss MD 11/11/2024 3:51 PM * Anesthesia Procedure Notes - Betty Goss MD - 11/10/2024 11:12 AM EDT Associated Order(s): Airway Management Anesthesia Procedure Note - Intubation and LMA Insertion Patient Name: Cristal Wahl : 1940 Patient location: OR Procedure indications: airway protection Procedure diagnosis: Anesthesia Performed by: Anesthesiologist Betty Goss MD Chart Verification Airway: airway not difficult Preanesthetic Checklist monitors and equipment checked. Patient's pre-procedure mental status: awake The patient was sedated prior to procedure. Current level of sedation: general anesthesia Airway not difficult - NPO status: > 8 hours Procedure Details Intubation route: oral Intubation method: LMA 4 (igel), blind Number of attempts: 1 Patient status for intubation: unresponsive Patient position: supine Preoxygenation: BVM - cuff inflated Placement confirmation method: chest rise and ETCO2 monitor Dentition: same as baseline Complications: no complications Additional comments: Atraumatic LMA placement with good seal. Secured with tape avoiding the lips. 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 Nursing notes reviewed. Pre-procedure vital signs reviewed. NPO status verified. Respiratory - negative ROS Cardiovascular - negative cardiac ROS and negative vascular ROS Positives: Exercise tolerance: <4 METS Negatives: CAD, angina and pacemaker Neuromuscular - negative neuro/psych ROS Positives: neuromuscular disease: Parkinson's disease GI/Hepatic/Renal - negative GI/Hepatic/Renal/ ROS Positives: weight gain Obesity Negatives: GERD Endo/MET - negative ROS Hem/Lymph - negative hem/lymph ROS Skel/Skin Positives: arthritis Psych HEENT Obstetrics Other Syndromes Additional Notes 83 y/o female, otherwise healthy, with Parkinson's dz, DBS battery at end of life;scheduled for replacement Physical Exam Airway Mallampati II TM distance >3 FB Neck ROM: full Dentition - no notable dental history regular rhythm Pulmonary - pulmonary exam normal Abdominal (+) obesity Past Medical History: Diagnosis Date Arthritis COVID-19 08/2024 Obesity (BMI 30.0-34.9) Parkinson disease (HCC) Shortness of breath Past Surgical History: Procedure Laterality Date INSERTION/REVISION DBS GENERATOR 08/[address] [facility] History reviewed. No pertinent family history. Tobacco/Alcohol/Drug HX[2] Ht Readings from Last 1 Encounters: 11/08/24 1.626 m (5' 4.02 ) Wt Readings from Last 1 Encounters: 11/08/24 83.9 kg (185 lb) Body mass index is 30.04 kg/m??. White Blood Cell Count Date Value Ref Range Status 11/08/2024 6.6 4.0 - 11.0 Thou/uL Final Hemoglobin Date Value Ref Range Status 11/08/2024 13.1 11.7 - 15.7 g/dL Final Hematocrit Date Value Ref Range Status 11/08/2024 39.2 35.0 - 47.0 % Final Platelet Count Date Value Ref Range Status 11/08/2024 306 150 - 450 Thou/uL Final Sodium Date Value Ref Range Status 11/08/2024 144 136 - 145 mmol/L Final Potassium Date Value Ref Range Status 11/08/2024 4.4 3.4 - 5.3 mmol/L Final CO2 Date Value Ref Range Status 11/08/2024 25 22 - 33 mmol/L Final Chloride Date Value Ref Range Status 11/08/2024 105 98 - 107 mmol/L Final Glucose Date Value Ref Range Status 11/08/2024 83 65 - 99 mg/dL Final Comment: Fasting: <100 mg/dL, Non-Fasting: <200 mg/dL (ADA 2005) Blood Urea Nitrogen (BUN) Date Value Ref Range Status 11/08/2024 21 8 - 21 mg/dL Final Creatinine Date Value Ref Range Status 11/08/2024 0.8 0.4 - 1.1 mg/dL Final Calcium Date Value Ref Range Status 11/08/2024 9.2 8.7 - 10.5 mg/dL Final No results found for: ABORH , TYPE , SCREEN Recent Results (from the past 8760 hours) ECG 12 lead Collection Time: 11/08/24 11:37 AM Result Value Status Ventricular rate 82 Final Atrial rate 82 Final P-R interval 178 Final QRS duration 132 Final Q-T interval 394 Final QTC calculation (Bazett) 461 Final P axis 57 Final R axis 27 Final T axis 57 Final Narrative Normal sinus rhythm Left bundle branch block Abnormal ECG No previous ECGs available Confirmed by MD Rin Amadeo ([id number]) on 11/08/2024 12:24:21 PM NPO Status: Anesthesia Plan ASA Score: ASA 3 Consent: The anesthetic plan and associated risks was discussed with patient. Anesthesia Plan: general anesthesia The plan was discussed with the following care providers: attending. Attending Note I personally evaluated and examined the patient prior to the intra-operative phase of care. Fiordaliza Natarajan PA-C [1] Allergies Allergen Reactions Latex Rash/Dermatitis [2] Tobacco/Alcohol/Drug HX Tobacco Use Smoking status: Former Types: Cigarettes Smokeless tobacco: Never Substance Use Topics Alcohol use: Yes Comment: MONTHLY Drug use: Never documented in this encounter Plan of Treatment Upcoming Encounters Date Type Department Care Team (Late st Contact Info) Description 11/26/2024 3:00 PM EDT Office Visit [facility] Neurosurgery [address] [place] [phone] Marissa Schumacher PA-C [address] [facility] [address] [place] [address] documented as of this encounter Goals Goal Patient Goal Type Associated Problems Recent Progress Patient-Stated? Author Autogenera kj Goal Care Plan Autogenerated Problem No Daron Palacios, STUDENT documented as of this encounter Procedures Procedure Name Priority Date/Time Associated Diagnosis Comments ANES INTUBATION Routine 11/10/2024 11:12 AM EDT documented in this encounter Results * ANES INTUBATION (11/10/2024 11:12 AM EDT) Narrative Betty Goss MD - 11/10/2024 11:12 AM EDT Betty Goss MD ? 11/10/2024 11:17 AM Anesthesia Procedure Note - ??Intubation and LMA Insertion Patient Name: Cristal Wahl : 1940 Patient location: OR Procedure indications: airway protection Procedure diagnosis: Anesthesia Performed by: Anesthesiologist ? Betty Goss MD ? Chart Verification Airway: airway not difficult Preanesthetic Checklist monitors and equipment checked. Patient's pre-procedure mental status: awake The patient was sedated prior to procedure. Current level of sedation: general anesthesia Airway not difficult - NPO status: > 8 hours Procedure Details Intubation route: oral Intubation method: LMA ??4 (igel), blind Number of attempts: 1 Patient status for intubation: unresponsive Patient position: supine Preoxygenation: BVM - cuff inflated Placement confirmation method: chest rise and ETCO2 monitor Dentition: same as baseline Complications: no complications Additional comments: Atraumatic LMA placement with good seal. Secured with tape avoiding the lips. us Betty Goss MD [place] ANESTHESIA Final Result documented in this encounter Visit Diagnoses Not on filedocumented in this encounter Administered Medications Inactive Administered Medications - up to 1 most recent administrations Medication Order MAR Action Action Date Dose Rate Site lactated ringers (LR) infusion Intravenous, Continuous PRN, Starting on Fri11/10/24 at 1048, Anesthesia Intra-op New Bag 11/10/2024 10:48 AM EDT ceFAZolin (ANCEF) 2 g in 20 mL SWFI syringe (premix) Intravenous, As needed, Starting on Fri11/10/24 at 1053, Anesthesia Intra-op Given 11/10/2024 10:53 AM EDT 2 g fentaNYL 100 MCG/2ML injection Intravenous, As needed, Starting on Fri11/10/24 at 1054, Anesthesia Intra-op Given 11/10/2024 11:16 AM EDT 25 mcg ondansetron (ZOFRAN) injection Intravenous, As needed, Starting on Fri11/10/24 at 1141, Anesthesia Intra-op Given 11/10/2024 11:41 AM EDT 4 mg phenylephrine (OCTAVIO-SYNEPHRINE) IV syringe 100 mcg/mL in 10 mL PREMIX Intravenous, As needed, Starting on Fri11/10/24 at 1107, Anesthesia Intra-op Given 11/10/2024 11:07 AM EDT 100 mcg propofol (diPRIvan) injection Intravenous, As needed, Starting on Fri11/10/24 at 1054, Anesthesia Intra-op Given 11/10/2024 11:16 AM EDT 50 mg documented in this encounter Additional Health Concerns Active Problems Noted Date Diagnosed Date Autogenerated Problem 11/05/2024 documented as of this encounter Care Teams Travel Administrator Relationship Specialty Start Date End Date Yuly Natarajan MD [address] [place] [id number] PCP - General Neurology 11/10/24 documented as of this encounter
--- OUTSIDE RECORDS SUMMARY | 2024-11-12 12:37 | XMS_ITS | Encounter Summary ---
Author Organization [facility] Address [address] [place] [address] Care Team Providers Care Medical Records Custodian Name Role Phone Yuly Natarajan MD Primary Care Provider [phone] Reason for Referral * Neurology (Routine) - Authorized Specialty Diagnoses / Procedures Referred By Roxi maher Referred To Contact Neurology Diagnoses Parkinson's disease, unspecified whether dyskinesia present, unspecified whether manifestations fluctuate (HCC) Tracy Payton MD [address] [place], [place] [id number] Phone: tel: fax: [facility] Neurology [address] [address] Phone: tel: fax: Referral ID Status Reason Start Date Expiration Date V isits Requested Visits Authorized [id number] Authorized Consult 11/10/2024 11/11/2025 1 1 Comments DBS management, s/p left DBS battery replacement 11/10/24 Encounter Details Date Type Department Care Team (Late st Contact Info) Description 11/10/2024 Orders Only [facility] Neurosurgery [address] [phone] Tracy Payton MD [address] [place] [phone] Parkinson's disease, unspecified whether dyskinesia present, unspecified whether manifestations fluctuate (HCC) (Primary Dx) Social History Tobacco Use Types Packs/Day Years [...] on file documented as of this encounter Plan of Treatment Upcoming Encounters Date Type Department Care Team (Late st Contact Info) Description 11/26/2024 3:00 PM EDT Office Visit [facility] Neurosurgery [address] [phone] Marissa Schumacher, PA-C [address] [address] Scheduled Referrals Name Type Priority Associated Diagnoses Orde r Schedule Amb Referral to Neurology-Movement Disorders Outpatient Referral Routine Parkinson's disease, unspecified whether dyskinesia present, unspecified whether manifestations fluctuate (HCC) Ordered: 11/10/2024 documented as of this encounter Goals Goal Patient Goal Type Associated Problems Recent Progress Patient-Stated? Author Autogenera kj Goal Care Plan Autogenerated Problem No Daron Palacios, STUDENT documented as of this encounter Visit Diagnoses Diagnosis Parkinson's disease, unspecified whether dyskinesia present, unspecified whether manifestations fluctuate (HCC)- Primary documented in this encounter Additional Health Concerns Active Problems Noted Date Diagnosed Date Autogenerated Problem 11/05/2024 documented as of this encounter Care Teams Medical Records Custodian Relationship Specialty Start Date End Date Yuly Natarajan MD NPI: [id number] [place] [id number] PCP - General Neurology 11/10/24 documented as of this encounter
--- OUTSIDE RECORDS SUMMARY | 2024-11-12 12:37 | XMS_ITS | Encounter Summary ---
Author Organization [facility] Address [address] [place] [address] Care Team Providers Care Program Clerk Name Role Phone Pcp, No Primary Care Provider Unavailabl e Encounter Details Date Type Department Care Team (Latest Contact Info) Description 11/08/2024 11:00 AM EDT Pre-Admission Testing [facility] [address] [address] Julia Tran, ULTRASOUND COORDINATOR [address] [place] [address] Preoperative examination (Primary Dx); Parkinson's disease, unspecified whether dyskinesia present, unspecified whether manifestations fluctuate (HCC) Social History Tobacco Use Types Packs/Day Years [...] Sign Reading Time Taken Comments Blood Pressure 140/68 11/08/2024 11:41 AM EDT Pulse 72 11/08/2024 11:41 AM EDT Temperature 36.6 ??C (97.9 ??F) 11/08/2024 11:41 AM E DT Respiratory Rate - - Oxygen Saturation 97% 11/08/2024 11:41 AM EDT Inhaled Oxygen Concentration - - Weight 83.9 kg (185 lb) 11/08/2024 11:41 AM EDT stated Height 162.6 cm (5' 4.02 ) 11/08/2024 11:41 AM E DT Body Mass Index 31.74 11/08/2024 11:41 AM EDT documented in this encounter Functional Status * Audit-C Score Answer Date of Assessment Author 1 11/08/2024 11:22 AM EDT Yvan Marcial RN * Question Answer Date of Assessment Author Q1: How often do you have a drink containing alcohol? Monthly or less 11/08/2024 11:22 AM EDT Sameera Marcial RN Q2: How many drinks containing alcohol do you have on a typical day when you are drinking? 1 or 2 11/08/2024 11:22 AM EDT Sameera Marcial RN Q3: How often do you have six or more drinks on one occasion? Never 11/08/2024 11:22 AM NERYT Sameera Marcial RN documented as of this encounter Patient Instructions * Patient Instructions* Julia Tran, ULTRASOUND COORDINATOR - 11/08/2024 11:00 AM EDT Images from the original note were not included. PRE-PROCEDURE INSTRUCTIONS PROCEDURE ARRIVAL TIME & LOCATION INFORMATION: You will receive a [employer] message between 12:00-4:00 PM the day before your procedure with your arrival time and location. If you have not received a message by 4:30 pm, please call the surgical timeline at [phone]. Please do not hesitate to contact us with any questions or concerns about the following instructions at [phone]. BATHING BEFORE SURGERY OR PROCEDURE: To reduce the risk of surgical site infection, wash before surgery using Hibiclens Solution (Chlorhexidine Gluconate 4% Solution/CHG), Hibiclens Wipes (Chlorhexidine Gluconate 2% Cloths) or antibacterial wash (Dial). These antibacterial washes may be purchased from your local pharmacy without a pres cription. If you are using the Hibiclens Solution (Chlorhexidine Gluconate 4% Solution/CHG), this will be a two-step process to be done the night before and the morning of the procedure. Please follow the steps below: Shower as usual. Turn the water off and stay in the shower. Apply half of the bottle of Hibiclens on a clean washcloth. Apply the soap from your neck down to your toes, avoiding the face and private area. Leave it on your skin for 2 minutes. Turn the water back on and rinse off. Dry off with a clean towel and put on clean clothing. If you are using the Hibiclens Wipes (Chlorhexidine Gluconate 2% Cloths), please follow the instructions provided by the coordinate measuring equipment operator or your provider. Avoid hair removal near surgical site within 48 hours of surgery (shaving, electric shaver, depilatory cream). Do NOT use lotion, powder, perfume, cologne or deodorant after showering with antibacterial wash. Perform oral hygiene (brush teeth and rinse mouth). Hibiclens solution (chlorhexidine gluconate) is NOT to be drank or ingested. DAY OF SURGERY OR PROCEDURE: Do NOT eat any food or full liquids 8 (EIGHT) hours prior to arrival to the hospital or as instructed by your doctor. CLEAR liquids may be consumed up to 4 (FOUR) hours prior to your arrival time. After this, NO chewing gum or hard candy may be consumed. The ONLY acceptable options for clear liquids are: Water Pulp-free clear fruit juice, i.e., apple juice, cranberry juice, grape juice - NO orange juice Clear energy drink such as Gatorade Black tea or black coffee - NO milk, cream, honey or thickeners Carbonated beverages Commercially available pre-surgery carbohydrate loading nutrition drinks (cannot contain protein) MEDICATIONS: Please follow the medication instructions exactly as noted below for your safety. If you are taking any supplements, herbal medications, or nonsteroidal anti- inflammatory drugs (NSAIDs), please stop taking them 1 week before your procedure (these medications may increase your riskof bleeding) For medications to be taken on the morning of surgery, you may take them with a sip of water ONLY. MEDICATION INSTRUCTIONS TO FOLLOW BEFORE SURGERY Medication Sig Note amantadine (SYMMETREL) 100 MG capsule Take 1 capsule (100 mg total) by mouth 2 (two) times a day. Take on the morning of surgery. carbidopa-levodopa (SINEMET CR) 50-200 MG per tablet Take 1 tablet by mouth nightly. Take the night before surgery. carbidopa-levodopa ER (SINEMET CR) 25-100 MG per tablet Take 1 tablet by mouth 4 (four) times a day. Take on the morning of surgery. citalopram (CeleXA) 20 MG tablet Take 2 tablets (40 mg total) by mouth nightly. Take the night before surgery. donepezil (ARICEPT) 5 MG tablet Take 1 tablet (5 mg total) by mouth. Take the night before surgery. ibuprofen (MOTRIN) 200 MG tablet Take 1 tablet (200 mg total) by mouth 4 times daily (every 6 hours) as needed for mild pain. Hold 7 days before surgery. TOOK 11/04/24 pimavanserin (Nuplazid) 34 MG capsule Take 1 capsule (34 mg total) by mouth every evening. Take the night before surgery. Bring your armored car guard and driver's license or photo ID and Insurance card(s) Wear loose, comfortable clothing and rubber-soled shoes Do NOT bring any valuables - you may bring your cell phone and/or money, credit card or check for co-pay if instructed Prior to going to the operating room you will have to remove: Glasses/contact lenses Make-up/nail syrian Hair pins/hairpiece Undergarments Jewelry/body piercing(s). Potential risks associated with failure to remove jewelry/body piercing(s) prior to surgery include but are not limited to: electrical hector, impeding circulation, infection, choking/strangulation, damage or loss of jewelry AFTER SURGERY: If you are going home on the same day as your surgery, please make arrangements to have a responsible adult (18 years of age or older) drive you home. Private transportation consists solely of a four-wheeled road vehicle with safety belt access. If using ridesharing (Uber, Lyft, Taxi, [place] etc.) you must be accompanied by a responsible adult (18 years of age or older). Your surgeon will provide specific instructions for care while recovering at home. In the event of any difficulty, please call your surgeon. For the first 24 hours following your surgery or procedure, we recommend that you do not engage in strenuous activities, consume alcoholic beverages, drive or make critical decisions. For the most up-to-date visitation policies in our facilities, please click here. For parking questions within [facility], please click here. documented in this encounter H&P Notes * Julia Tran APRN - 11/08/2024 11:00 AM EDT Images from the original note were not included. PREOPERATIVE - HISTORY AND PHYSICAL Primary Care Provider: No,PCP (Inactive) Procedure Date Procedure Laterality Surgeon(s) 11/10/2024 CHANGE BATTERY NEUROSTIMULATOR N/A Tracy Nolan MD, Marissa Schumacher PA-C Anesthesia Preoperative Diagnosis for Planned Procedure none Battery end of life of vagus nerve stimulator [Z45.42] ASSESSMENT & PLAN Preop Outcome - Optimized, No further preoperative testing or consultations needed Parkinson's disease (HCC) Symptoms poorly managed with failed neurostimulator battery. Patient remains on Sinemet CR as prescribed by Neurology and is scheduled for battery change on 11/10/2024. PRE-OP RISK ASSESSMENT & OPTIMIZATION Perioperative Risk Scores ? Global - METS less than 4. ASA Class: 2, Clinical Frailty Scale (CFS): (!) 6 ? VTE - Orthopedics & NeuroSurgery VTE risk stratification: Standard or low risk ? Cardiac - RCRI: 0, RCRI risk: 0.5 %, Moreno SAVANNAH risk (%): (!) 1.2 ? Pulmonary - STOPBANG - 2 ? MISC - AUDIT-C Total Score - Female: 1, RAPT Score: (!) 4 PREOP CARDIAC RISK ASSESSMENT Planned for Time-Sensitive, Low risk surgical procedure. No active cardiac conditions. NO known cardiac disease. No chest pain or dyspnea at rest or exertion. EKG: Done today. Tracing reviewed by me & my interpretation is Sinus Rhythm; LBBB - unable to obtain accurate EKG provided Parkinsonian state and positioning. Low risk (Less than 1%) of MACE as per Moreno SAVANNAH cardiac risk calculator, No further preoperative cardiac testing is indicated. Preop Cardiology consult not needed. 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 Preop Testing: Prior testing reviewed Perioperative Plan and Recommendations: No H/o anesthesia related adverse events, no Family h/o anesthesia issues Declines blood products. MEDICATION INSTRUCTIONS TO FOLLOW BEFORE SURGERY Medication Sig Note amantadine (SYMMETREL) 100 MG capsule Take 1 capsule (100 mg total) by mouth 2 (two) times a day. Take on the morning of surgery. carbidopa-levodopa (SINEMET CR) 50-200 MG per tablet Take 1 tablet by mouth nightly. Take the night before surgery. carbidopa-levodopa ER (SINEMET CR) 25-100 MG per tablet Take 1 tablet by mouth 4 (four) times a day. Take on the morning of surgery. citalopram (CeleXA) 20 MG tablet Take 2 tablets (40 mg total) by mouth nightly. Take the night before surgery. donepezil (ARICEPT) 5 MG tablet Take 1 tablet (5 mg total) by mouth. Take the night before surgery. ibuprofen (MOTRIN) 200 MG tablet Take 1 tablet (200 mg total) by mouth 4 times daily (every 6 hours) as needed for mild pain. Hold 7 days before surgery. TOOK 11/04/24 pimavanserin (Nuplazid) 34 MG capsule Take 1 capsule (34 mg total) by mouth every evening. Take the night before surgery. Risk assessment & appropriate instructions reviewed with the patient and/or family in layman's terms. They verbalized understanding. Subjective HISTORY OF PRESENT ILLNESS Chief complaint - Cristal Wahl is a 83 y.o. female seen today for a preoperative assessment. Relevant Brief history for Procedural indication - This is an 83 year old female who [facility] for Preoperative risk stratification as she is scheduled for the abovesurgical procedure. Positive for Implantable device (Neurostimulator), H/o COVID-19 (August 2024 started on Paxlovid) Negative for Heart disease/stents, Irregular heart beat or arrhythmia, Any recent illness, ER visitor hospitalization, DM or Pre-Diabetes, Hypertension, Cancer, Lung disease, Kidney disease, Liver disease, Immunocompromised, ROGER, Stroke or TIA, Seizure disorder, Vascular disease or stents, DVT or PE, Clotting disorder, Assistive devices, Corticosteroid Use, H/o MRSA, H/o Cdiff, Anemia and H/o transfusion Bleeding risk screening - no h/o Excessive Bleeding, no h/o Bleeding disorder and no Family h/o bleeding disorder. NO h/o anesthesia related adverse events Refuses blood products (Patient Preference - not secondaryto Adventist Beliefs). no Family h/o anesthesia issues, unprovoked DVT or PE and clotting disorder. REVIEW OF SYSTEMS HEENT: Scattered missing teeth; Nearsighted and Farsighted. Respiratory - Positive for Dyspnea on exertion Genitourinary - Positive for Urinary incontinence Cardiovascular; Dermatologic; Psychiatric NEGATIVE except as noted in HPI. Past Medical History: Diagnosis Date Arthritis COVID-19 08/2024 Obesity (BMI 30.0-34.9) Parkinson disease (HCC) Shortness of breath Past Surgical History: Procedure Laterality Date INSERTION/REVISION DBS GENERATOR 08/2018 dR Nolan AT [facility] Social History Tobacco Use Smoking status: Former Types: Cigarettes Smokeless tobacco: Never Substance Use Topics Alcohol use: Yes Comment: MONTHLY Drug use: Never No family history on file. Allergies Allergen Reactions Latex Rash/Dermatitis Objective Vitals: 11/08/24 1141 BP: (!) 140/68 BP Location: Left arm Patient Position: Sitting Pulse: 72 Temp: 97.9 ??F (36.6 ??C) TempSrc: Temporal SpO2: 97% Weight: 83.9 kg (185 lb) Height: 1.626 m (5' 4.02 ) Body mass index is 31.74 kg/m??. Physical Exam Constitutional - alert. well appearing and not in acute distress. Head - normocephalic. Ear - right and left external ear normal. Eyes - PERRL and conjunctivae normal. Nose - appears normal. Neck - supple and normal range of motion. no carotid bruit. Oral - moist mucous membranes. Cardiovascular - normal rate and regular rhythm. normal heart sounds and normal pulses. no murmur. Pulmonary - breath sounds present bilaterally. no wheezing and no crackles. Abdominal - soft and bowel sounds normal. Musculoskeletal - no RLE edema and no LLE edema. Skin - warm. bruises noted. Neurological - alert and oriented x 4. no weakness. Parkinson Disease; Total assist at present. Wheelchair - stand to pivot with assist. Relevant data reviewed No results found for: WBC , HGB , HCT , PLT , NA , K , CL , CO2 , ANIONGAP , CALCIUM , BUN , CREAT , EGFR , GFRAA , GLUC , HGBA1C , PROT , ALBUMIN , GLOBULIN , BILITOT , BILIDIR , AST , ALT , ALKPHOS , PROBNP , MG , TSH , INR , PTT documented in this encounter Miscellaneous Notes * Assessment & Plan Note - Julia Tran APRN - 11/08/2024 1:04 PM EDT Associated Problem(s): Parkinson's disease (HCC) Symptoms poorly managed with failed neurostimulator battery. Patient remains on Sinemet CR as prescribed by Neurology and is scheduled for battery change on 11/10/2024. documented in this encounter Plan of Treatment Upcoming Encounters Date Type Department Care Team (Late st Contact Info) Description 11/26/2024 3:00 PM EDT Office Visit [facility] Neurosurgery [address] [place] [address] Marissa Schumacher PA-C 85 [facility] [address] [place] [address] documented as of this encounter Goals Goal Patient Goal Type Associated Problems Recent Progress Patient-Stated? Author Autogenera kj Goal Care Plan Autogenerated Problem No Daron Palacios, STUDENT documented as of this encounter Procedures Procedure Name Priority Date/Time Associated Diagnosis Comments ECG 12-LEAD Routine 11/08/2024 11:37 AM EDT Preoperative examination COMPLETE BLOOD COUNT, WITH DIFFERENTIAL Routine 11/08/2024 10:58 AM EDT Preoperative examination BASIC METABOLIC PANEL Routine 11/08/2024 10:58 AM EDT Preoperative examination documented in this encounter Results * ECG 12 lead (11/08/2024 11:37 AM EDT) Ventricular rate 82 BPM EKG [facility] Atrial rate 82 BPM EKG [facility] P-R interval 178 ms EKG [facility] QRS duration 132 ms EKG [facility] Q-T interval 394 ms EKG [facility] QTC calculation (Bazett) 461 ms EKG [facility] P axis 57 degrees EKG [facility] R axis 27 degrees EKG [facility] T axis 57 degrees EKG [facility] 11/08/2024 11:3 7 AM EDT Narrative EKG [facility] - 11/08/2024 12:24 PM EDT Normal sinus rhythm Left bundle branch block Abnormal ECG No previous ECGs available Confirmed by MD Gar William ([id number]) on 11/08/2024 12:24:21 PM Procedure Note Amadeo Gar MD - 11/08/2024 Normal sinus rhythm Left bundle branch block Abnormal ECG No previous ECGs available Confirmed by MD Gar William ([id number]) on 11/08/2024 12:24:21 PM Julia Tran ULTRASOUND COORDINATOR ECG ORDERABLES Final Resul t [facility] * (ABNORMAL) Complete Blood Count, with differential (11/08/2024 10:58 AM EDT) White Blood Cell Count 6.6 4.0 - 11.0 Thou/uL 11/08/2024 4:26 PM EDT [facility] Platelet Count 306 150 - 450 Thou/uL 11/08/2024 4:26 PM EDT [facility] Hemoglobin 13.1 11.7 - 15.7 g/dL 11/08[facility]2024 [facility] Hematocrit 39.2 35.0 - 47.0 % 11/08/2024 4:26 PM [facility] Red Blood Cell Count 4.22 4.00 - 5.40 Mil/uL 11/08/2024 4:26 PM [facility] MCV 93 80 - 100 fL 11/08/2024 4:26 PM EDT [facility] MCH 31.0 27.0 - 31.0 pg 11/08/2024 4:26 PM EDT [facility] MCHC 33.4 30.0 - 36.0 g/dL 11/08/2024 4:26 PM EDT [facility] RDW 13.5 11.5 - 14.5 % 11/08/2024 4:26 PM [facility] MPV 11.1 7.5 - 12.5 fL 11/08/2024 4:26 PM [facility] Neutrophils Auto 72.5 % 11/09/19 4:26 PM EDT [facility] Immature Granulocytes 0.3 % 11/08/2024 4:26 [facility] Lymphocytes Auto 13.4 % 11/09/19 4:26 PM EDT [facility] Monocytes Auto 11.9 % 11/08/2024 4:26 PM [facility] Eosinophils Auto 1.1 % 11/09/19 4:26 PM [facility] Basophils Auto 0.8 % 11/08/2024 4:26 PM [facility] Abs Neutrophils Auto 4.80 2.00 - 7.50 Thou/uL 11/08/2024 4:26 PM [facility] Abs Immature Granulocytes 0.02 0.00 - 0.10 Thou/uL 11/08/2024 4:26 PM EDT [facility] Abs Lymphocytes Auto 0.89(L) 1.50 - 4.50 Thou/uL 11/08/2024 4:26 PM [facility] Abs Monocytes Auto 0.79 0.20 - 1.50 Thou/uL 11/08/2024 4:26 PM [facility] Abs Eosinophils Auto 0.07 0.00 - 0.70 Thou/uL 11/08/2024 4:26 PM [facility] Abs Basophils Auto 0.05 0.00 - 0.20 Thou/uL 11/08/2024 4:26 PM [facility] Blood Blood specimen / Unknown 11/08/2024 10:58 AM EDT 11/08/2024 3:56 PM EDT us Julia Tran ULTRASOUND COORDINATOR LAB BLOOD ORDERABLES Final Result [address] [address], [address] [address] * (ABNORMAL) Basic Metabolic Panel (11/08/2024 10:58 AM EDT) Glucose 83 65 - 99 mg/dL 11/08/2024 4:34 PM T [facility] Comment:Fasting: <100 mg/dL, Non-Fasting: <200 mg/dL (ADA 2004) Blood Urea Nitrogen (BUN) 21 8 - 21 mg/dL 11/08/2024 4:34 PM [facility] Creatinine 0.8 0.4 - 1.1 mg/dL 11/08/2024 4:34 PM [facility] eGFR 73 >59 11/08/2024 4:34 PM [facility] Comment:CKD-EPI (2020) in mL /min/1.73 sq meters. Sodium 144 136 - 145 mmol/L 11/08/2024 4:34 PM [facility] Potassium 4.4 3.4 - 5.3 mmol/L 11/08/2024 4:34 PM [facility] Chloride 105 98 - 107 mmol/L 11/08/2024 4:34 PM [facility] CO2 25 22 - 33 mmol/L 11/08/2024 4:34 PM [facility] Anion Gap 14 7 - 17 11/08/2024 4:34 PM [facility] Calcium 9.2 8.7 - 10.5 mg/dL 11/08/2024 4:34 PM [facility] BUN/Creatinine Ratio 26(H) 10.0 - 25.0 Ratio 11/08/2024 4:34 PM [facility] Blood Blood specimen / Unknown 11/08/2024 10:58 AM EDT 11/08/2024 3:56 PM EDT us Julia Tran APRN LAB BLOOD ORDERABLES Final Result [address] [address], [address] [address] documented in this encounter Visit Diagnoses Diagnosis Preoperative examination- Primary Unspecified pre-operative examination Parkinson's disease, unspecified whether dyskinesia present, unspecified whether manifestations fluctuate (HCC) documented in this encounter Additional Health Concerns Active Problems Noted Date Diagnosed Date Autogenerated Problem 11/05/2024 documented as of this encounter Care Teams Program Clerk Relationship Specialty Start Date End Date Pcp, No [address] [place] [address] PCP - General 11/25/18 11/09/24 documented as of this encounter
--- OUTSIDE RECORDS SUMMARY | 2024-11-12 12:37 | XMS_ITS | Encounter Summary ---
Author Organization [facility] Address [address] [place] [address] Care Team Providers Care Printed Forms Proofreader Name Role Phone Yuly Natarajan MD Primary Care Provider [phone] Reason for Visit * Reason Onset Date Comments Other 11/11/2024 Encounter Details Date Type Department Care Team ([facility] st Contact Info) Description 11/11/2024 Telephone [facility] [address] [address] Marissa Schumacher, PA-C 85 [facility] [address] [place] [id number] Other Social History Tobacco Use Types Packs/Day Years [...] on file documented as of this encounter Miscellaneous Notes * Telephone Encounter - Tres Srivastava MA - 11/11/2024 2:19 PM EDT I spoke with patient daughter, no reports of pain or weakness, no concerns of the incision. She hasa telemed appointment tomorrow regarding the speech. Patient is not taking the oxycodone since the surgery, patient reported to daughter she does not want to take it since she has no pain. She only took 400 Advil the last 24 hours at this time. documented in this encounter Plan of Treatment Upcoming Encounters Date Type Department Care Team (Late st Contact Info) Description 11/26/2024 3:00 PM EDT Office Visit [facility] Neurosurgery [address] [place] [address] Marissa Schumacher PA-C 85 [facility] [address] [place] [address] documented as of this encounter Goals Goal Patient Goal Type Associated Problems Recent Progress Patient-Stated? Author Autogenera kj Goal Care Plan Autogenerated Problem No Daron Palacios, STUDENT documented as of this encounter Visit Diagnoses Not on filedocumented in this encounter Additional Health Concerns Active Problems Noted Date Diagnosed Date Autogenerated Problem 11/05/2024 documented as of this encounter Care Teams Printed Forms Proofreader Relationship Specialty Start Date End Date Yuly Natarajan MD [address] [facility] [address] [place] [address] PCP - General Neurology 11/10/24 documented as of this encounter
--- OUTSIDE RECORDS SUMMARY | 2024-11-12 12:37 | XMS_ITS | Encounter Summary ---
Author Organization [facility] Address [address] [place] [address] Care Team Providers Care Reed Worker Name Role Phone Yuly Natarajan MD Primary Care Provider [phone] Lola Laura RN Unavailable [phone] Encounter Details Date Type Department Care Team ([facility] Contact Info) Description 11/12/2024 Telephone [facility] Neurosurgery [address] [phone] Lola Laura, HONG [address] [place] [address] Social History Tobacco Use Types Packs/Day Years [...] Upcoming Encounters Date Type Department Care Team ([facility] Contact Info) Description 11/26/2024 3:00 PM EDT Office Visit [facility] Neurosurgery [place] [address] [facility] [address] [place] [phone] Marissa Schumacher PA-C 85 [facility] [address] [place] [address] documented as of this encounter Goals Goal Patient Goal Type Associated Problems Recent Progress Patient-Stated? Author Autogenera kj Goal Care Plan Autogenerated Problem No Daron Palacios, STUDENT documented as of this encounter Visit Diagnoses Not on filedocumented in this encounter Additional Health Concerns Active Problems Noted Date Diagnosed Date Autogenerated Problem 11/05/2024 documented as of this encounter Care Teams Reed Worker Relationship Specialty Start Date End Date Yuly Natarajan MD 299 [facility] [address] [place] [address] PCP - General Neurology 11/10/24 Lola Laura, HONG [address] [place] [address] [address] [place] [address] Registered Nurse Surgery, Neurosurgery 11/12/24 documented as of this encounter
--- OUTSIDE RECORDS SUMMARY | 2024-11-12 12:37 | XMS_ITS | Data Portability ---
Author Organization [facility], Main Office Address [address], [address] [place] [address] Care Team Providers Care Boot Trimmer Name Role Phone [facility] ([facility]) [facility] ER Assessment No assessment recorded. Plan of Treatment Reminders Order Date Submit Date Provider Last Modified By Organization Details Last Modified Time Details Appointments None record ed. Lab None record ed. Referral None record ed. Procedures None record ed. Surgeries None record ed. Imaging None record ed. Medication Orders None record ed. Patient Targets Encounter Date Encounter Id Patient Goals Patient Target Last Modified By Organization Details Last Modified Time return to home in 1-2 weeks myoss Not available 09/04/2018 08:39:44 return to home in 1-2 weeks Not available 09/11/2018 08:08:45 return to home in 1-2 weeks Not available 09/14/2018 09:11:53 Patient InstructionsNo instructions recorded. Reason for Referral None Reported. Problems Name Problem SNOMED Code Status Onset Date Resolution Date Notes Provider Name and Address Organization Details Recorded Time Parkinson's disease 37150580 Active 2018 OSWALDO Cheney [address] [facility], [address], [place], [address], [facility] 9 07:46:51 Gastric ulcer 920285200 Active 2018 past hx of h pylori OSWALDO Cheney [address] , [address], [place], [address], [facility] [place] [facility] 9 07:54:52 Depressive disorder 44564763 Active 2018 OSWALDO Cheney [address] [facility], [address], [place], [address], [facility] [place] [facility] 9 07:49:48 Osteoarthriti s of knee 652539553 Active 2018 Madonna OSWALDO Justice [address] [facility], [address], [place], [address], [facility] 9 07:53:08 Problem Notes None recorded. Medical Equipment None Reported. Allergies Allergen ID Allergen Name Allergen Category Reaction Reaction Severity Criticality Documentation Date Start Date Code Code System Note Provider Name and Address Organization Details Recorded Time 35221 latex environme nt,medica tion Not available Not available Not available 08/31/2018 16179 91 RxNorm Madonna JusticeOSWALDO [address] [facility], [address], [place], [address], [facility] 9 07:43:33 Vitals Date Recorded Heart rate Respiratory rate Body temperature Systolic blood pressure Diastolic blood pressure Provider Name and Address Organization Details Last Updated DateTime 9 84 /min 18 /min 97.8 [degF] 108 mm[Hg] 84 mm[Hg] MadonnaOSWALDO Walker [address] [facility], [address], [place], [address], [facility] 9 07:42:51 Date Recorded Heart rate Systolic blood pressure Diastolic blood pressure Provider Name and Address Organization Details Last Updated DateTime 09/11/2018 78 /min 110 mm[Hg] 66 mm[Hg] Ashley Atkinson [address] [place] [address], [address], [place], [address], [facility] 09/11/2018 08:28:01 Date Recorded Heart rate Systolic blood pressure Diastolic blood pressure Provider Name and Address Organization Details Last Updated DateTime 09/14/2018 78 /min 110 mm[Hg] 72 mm[Hg] Ashley Atkinson [address] [place] [address], [address], [place], [address], [facility] 09/14/2018 09:11:28 Date Recorded Systolic blood pressure Diastolic blood pressure Provider Name and Address Organization Details Last Updated DateTime 09/04/2018 108 mm[Hg] 84 mm[Hg] Yanelis Argueta MD [address] [facility], [address], [place], [address], [facility] 09/04/2018 08:08:46 Social History Question Answer Notes LastModified by Organizat ion Details LastModified Time Tobacco Smoking Status Former Smoker Not Available [facility] 05/02/2020 03:13:22 Do You Have An Advance Directive? Yes Full Code Per [facility] Notes [id number] Information not available 05/02/2020 What Is Your Level Of Alcohol Consumption? None [id number] Information not available 05/02/2020 How Much Tobacco Do You Chew? None [id number] Information not available 05/02/2020 Do You Have A Medical Power Of Hat Lacer? No [id number] Information not available 05/02/2020 What Was The Date Of Your Most Recent Tobacco Screening? 09/14/2018 [id number] Information not available 05/02/2020 Sex: Unknown Functional Status None recorded. Mental Status None recorded. Family History Nothing Reported Notes:fmhx of parkinson and alzheimers Medical History No medical history recorded. Gynecological HistoryNo gynecological history recorded. Obstetrics History GPAL:G 0 P 0 0 0 0 Past Encounters Encounter ID Performer Location Encounter Start Date Encounter Closed Date Diagnosis/Indication Diagnosis SNOMED-CT Code Diagnosis ICD10 Code Diagnosis Note [id number] OSWALDO Cheney [address] [place] [address] 08/31/2018 07:41:51 09/03/2018 14:24:51 Parkinson's disease 75191561 G20 see hpimonitor incisionsf /u with surgeonPT OT for conditioni ng and mobilityam antadine 100 mg bidsinemet 25/100 mg 1 qidsinemet 50/200 mg 1 qhsmonitor for weakness, worsening tremors Depressive disorder 3548 9007 F32.0 celexa 20 mg qdmonitor moodNEG prn Gastric ulcer 953728633 K25.9 pt has hx of h pylori treated in the pastshe doesn't want or need any acid reducing meds Osteoarthr itis of knee 201162537 M17.0 tylenol prnPT OT as above [id number] Yanelis Argueta MD [facility] [address] [place] [address] 09/04/2018 08:07:16 09/07/2018 14:31:53 Depressive disorder 61624055 F32.89 citalopram 20 mg daily; will monitor Parkinson's disease 4904 9000 G20 amantadine 100 mg bidSinemet 25-100 1 tab qidSinemet ER 50-200 1 tab at hss/p deep brain stimulatio n placement - has fu appt next week Osteoarthr itis of knee 206564707 M17.0 ibuprofen 200 mg daily; APAP 650 [place] q4h prn [id number] Ashley SAUL [address] [place] [address] 09/11/2018 08:07:51 09/15/2018 15:39:04 Depressive disorder 72186836 F32.89 citalopram 20 mg daily; will monitor Parkinson's disease 4904 9000 G20 amantadine 100 mg bidSinemet 25-100 1 tab qidSinemet ER 50-200 1 tab at hss/p stage 2 deep brain stimulatio n of battery pack implantati on - has fu appt next week Osteoarthr itis of knee 822928210 M17.0 ibuprofen 200 mg daily; APAP 650 [place]4h prn [id number] [facility] [address] [place] [address] 09/14/2018 09:10:46 09/16/2018 09:00:14 Depressive disorder 53071977 F32.89 citalopram 20 mg daily; will monitor Parkinson's disease 4904 9000 G20 amantadine 100 mg bidSinemet 25-100 1 tab qidSinemet ER 50-200 1 tab at hss/p stage 2 deep brain stimulatio n of battery pack implantati on - has fu appt next week Osteoarthr itis of knee 674475960 M17.0 ibuprofen 200 mg daily; APAP 650 mg q4h prn Health Concerns Section Related Observation LastModified by Organization Detai ls LastModified Time None Recorded Concern Status LastModified by Organization Details LastModified Time None Recorded Advance Directives Directive Y: full code per [facility] no amara Payers Encounter Date Sequence Insurance Name Policy Number Policy Li Covered Member ID Li Member ID Guarantor Name 08/31/2018 1 MEDICARE B-AR: [employer] Cristal Wahl [id number] Cristal Wahl 09/04/2018 1 MEDICARE B-AR: [employer] Cristal Wahl [id number] Cristal Wahl 09/11/2018 1 MEDICARE B-AR: [facility] Cristal Wahl [id number] Cristal Wahl 09/14/2018 1 MEDICARE B-AR: [facility] Cristal Wahl [id number] 6 Cristal Wahl Notes Date Note Type Note Provider Name and Address Organization Details Recorded Time 08/31/2018 text/html 77 yo female see n for initial intake note. pt admitted from [facility]. pt went to [facility] for deep brain stimulation placement who then had episode of LUE tingling progressing to LUE weakness associated with BLE weakness. pt evaluated by stroke team - had CTH and CTA of head and neck which was non acute. concern for seizure given loading dose of keppra but was not sent here on that med so presumed not to be thought to have seizures. pt had no further episodes of left side or BLE. has baseline tremors RUE> LUE. pt has no complaints today. OSWALDO Cheney [address] [facility], [address], [place], [address], [facility] 08/31/2018 08:30:12 09/04/2018 text/html 77 year old varun clayton for admission history and physical examination. Patient was admitted 08/30/18 from [facility]. She had been at [facility] for for deep brain stimulation placement 08/27/18. She had episode of LUE tingling progressing to LUE weakness associated with BLE weakness and possible generalized shaking after procedure and was subsequently monitored in N[facility]U. Sympoms were reported after left brain leads were in place and before right brain leads were placed. Patient was evaluated by acute stroke team who evaluated CTH and CTA H/N which showed nonacute changes and no large vessel occlusion, and thus, was not a candidate for intervention. No further episodes occurred while at [facility] and patient remained with baseline tremors RUE>LUE. Patient admitted to [facility] for PT/OT. Patient already progressing with PT/OT. Able to ambulate slowly with walker. Considering a different type of walker. Can dress herself slowly. Yanelis Argueta MD [address] [facility], [address], [place], [address], [facility] 09/04/2018 08:41:20 09/11/2018 text/html Pt is a 77 y.o female seen today for acute rounding visit. Pt went out for surgery yesterday for stage 2 of deep brain stimulation process: battery implantation and turning on of electrodes. Per nursing report, pt tolerated procedure well. Surgery removed all but 2 alice in head, will remove remaining alice at f/u next friday. Patient was admitted 08/30/18 from [facility]. She had been at [facility] for for deep brain stimulation placement 08/27/18. She had episode of LUE tingling progressing to LUE weakness associated with BLE weakness and possible generalized shaking after procedure and was subsequently monitored in NCCU. Sympoms were reported after left brain leads were in place and before right brain leads were placed. Patient was evaluated by acute stroke team who evaluated CTH and CTA H/N which showed nonacute changes and no large vessel occlusion, and thus, was not a candidate for intervention. No further episodes occurred while at [facility] and patient remained with baseline tremors RUE>LUE. Patient admitted to [facility] for PT/OT. Ashley Atkinson [address] [place] [address], [address], [place], [address], [facility] [employer] 09/11/2018 08:40:36 09/14/2018 text/html Pt is a 77 y.o female seen today for discharge visit. Pt went out for surgery last week for stage 2 of deep brain stimulation process: battery implantation and turning on of electrodes. Patient was admitted 08/30/18 from [facility]. She had been at [facility] for for deep brain stimulation placement 08/27/18. She had episode of LUE tingling progressing to LUE weakness associated with BLE weakness and possible generalized shaking after procedure and was subsequently monitored in NCCU. Sympoms were reported after left brain leads were in place and before right brain leads were placed. Patient was evaluated by acute stroke team who evaluated CTH and CTA H/N which showed nonacute changes and no large vessel occlusion, and thus, was not a candidate for intervention. No further episodes occurred while at [facility] and patient remained with baseline tremors RUE>LUE. Patient admitted to [facility] for PT/OT. Pt has progressed well with therapy and is being discharged to home with meds and services. Ashleymireille Atkinson [address] [place] [address], [address], [place], [address], [place] [facility] 09/14/2018 09:19:14 OBGyn Episode No OBEpisode recorded.
--- OUTSIDE RECORDS SUMMARY | 2024-11-12 12:37 | XMS_ITS | Encounter Summary ---
Author Organization [facility] Address [address] [place] [address] Care Team Providers Care Electrician Wiring Name Role Phone Yuly Natarajan MD Primary Care Provider [phone] Encounter Details Date Type Department Care Team (Latest Contact Info) Description 11/10/2024 Travel Social History Tobacco Use Types Packs/Day Years [...] Description 11/26/2024 3:00 PM EDT Office Visit [facility] [place] [address] [facility] [address] [place] [address] Marissa Schumacher PAElinorC [address] [facility] [address] [place] [address] documented as of this encounter Goals Goal Patient Goal Type Associated Problems Recent Progress Patient-Stated? Author Autogene kj Goal Care Plan Autogenerated Problem No Daron Palacios, STUDENT documented as of this encounter Visit Diagnoses Not on filedocumented in this encounter Additional Health Concerns Active Problems Noted Date Diagnosed Date Autogenerated Problem 11/05/2024 documented as of this encounter Care Teams Electrician Wiring Relationship Specialty Start Date End Date Yuly Natarajan MD [address] [place] [address] PCP - General Neurology 11/10/24 documented as of this encounter
--- OUTSIDE RECORDS SUMMARY | 2024-11-12 12:37 | XMS_ITS | Encounter Summary ---
Author Organization [facility] Address [address] [place] [address] Care Team Providers Care Grinder Operator External Tool Name Role Phone Yuly Natarajan MD Primary Care Provider [phone] Reason for Visit * Auth/Cert Specialty Diagnoses / Procedures Referred By Roxi maher Referred To Contact Diagnoses Battery end of life of vagus nerve stimulator Procedures WI INSJ/RPLCMT CRANIAL NEUROSTIM PULSE GENERATOR REPLACEMENT OF VNS BATTERY Referral ID Status Reason Start Date Expiration Date Visits Re quested Visits Authorized [id number] 1 1 Encounter Details Date Type Department Care Team (Late st Contact Info) Description 11/10/2024 10:30 AM EDT - 11/10/2024 12:00 PM EDT Surgery [facility] Perioperative Surgical Services [address] [place] [address] Tracy Nolan MD [address] [facility] [address] [place] [address] REPLACEMENT OF DBS BATTERY LEFT Social History Tobacco Use Types Packs/Day Years Used Date Smoking Tobacco: Former Cigarettes Smokeless Tobacco: Never Tobacco Cessation:Counseling Given: Not Answered Alcohol Use Standard Drinks/Week Comments Yes 0 [...] Sign Reading Time Taken Comments Blood Pressure 145/67 11/10/2024 12:00 PM EDT Pulse 72 11/10/2024 12:00 PM EDT Temperature 36.7 ??C (98 ??F) 11/10/2024 11:51 AM EDT Respiratory Rate 16 11/10/2024 12:00 PM EDT Oxygen Saturation 100% 11/10/2024 12:00 PM EDT Inhaled Oxygen Concentration - - Weight - - Height 162.6 cm (5' 4 ) 11/08/2024 11:18 AM EDT Body Mass Index - - documented in this encounter Functional Status * [...] drinking? 1 or 2 11/08/2024 11:22 AM NERYT Sameera Marcial RN Q3: How often do you have six or more drinks on one occasion? Never 11/08/2024 11:22 AM NERYT Sameera Marcial RN documented as of this encounter Discharge Instructions * Discharge Instr - Other Orders* Marissa Schumacher PA-C - 11/10/2024 11:45 AM EDT BATTERY CHANGE DISCHARGE INSTRUCTIONS Your surgeon is Dr. Nolan. Follow up office appointments: Generally, the first follow-up appointment will be 10-14 days from your date of surgery. These appointments are made directly with your surgeon's office. If the first follow-up appointment was NOT already arranged by your surgeon's office before surgery, then call 1-3 days after surgery to make your follow-up appointment. You can find your surgeon's name office locations and office phone number in 'Follow-Up Providers' within your discharge paperwork. Please ensure you contact the [facility] for your device so they are present at all office visits including this follow up. They are required to be present for optimization of your programming so that we can appropriately assess your progress after surgery. Also please get an X-ray done prior to this visit so that we can be sure there has been no movementof the placed device. Please let the neurosurgery office know your preferred radiology location ([facility], [facility], etc) so that we may order the images for you. Ideally these should be obtained 1-3 days prior to your office visit. After Battery replacement surgery, it is normal to experience some pain related to the surgery. Youwill recover over the course of days to weeks, getting better with time, so be patient with your recovery. Call your surgeon's office if you experience: Sudden, severe pain in chest or surgical site that is not any better with medications. Persistent nausea/vomiting. A fall. Increased difficulty walking. Pain, swelling, or redness of lower legs. Inability to move or feel your legs. Inability to pass urine. Sudden incontinence (loss of control of your bladder or bowel). Bright redness, warmth, swelling, or severe pain around incision. New or increased bleeding or drainage from incision. Fever of 101 degrees or higher and/or chills. Call 911 if you experience: Chest pain. Difficulty breathing or shortness of breath. Sudden inability to move or feel your legs. Exercise: Walk every day on flat surfaces, at least 3 times per day, increasing the distance as much as you can comfortably tolerate. Use a cane or walker as needed or as instructed while you were in the hospital. Keep pets away from you when walking as they may cause falls. Outpatient physical therapy, if needed, will be discussed at your first post-op office visit. Precautions: No heavy lifting, straining, or strenuous activity for the next 7 days. Wear footwear that fits well with no skid soles or sneakers. NO high heels. Limit twisting or reaching overhead. Limit sitting to 30 minutes at a time in order to stand and take a few steps. Do NOT drive or operate machinery if you are taking narcotic medications NO SMOKING: Smoking interferes with bone healing and wound healing. ALL nicotine products including patches and gum should be AVOIDED, especially after fusion procedures, to help with bone healing and wound healing. Diet: No restrictions specific to surgery. You may resume your pre-operative diet unless otherwise instructed If you are diabetic please ensure optimal blood sugar levels as higher blood sugar levels increase your risk of infection Incision Care: Keep your dressing clean, dry, and in place for two (2) full days after surgery Please shower once your incision has been dry without drainage for two (2) full days. Please shower every day with soap and water with the dressing OFF to keep the incision clean. You have sutures: these will be removed at your first follow-up visit You should pat-dry your incision and not scrub it. No baths, hot tubs, or swimming pools until cleared to use them by your surgeon. If you experience wound drainage, keep covered with a dressing and call your surgeon. Do NOT wear tight-fitting clothing near or on the incision. Do NOT allow pets to sleep with you to reduce risk of infection of your incision. Replace your sheets and pillow cases with newly-washed sheets and cases weekly. Medications: Take pain medication as prescribed by your surgeon Do NOT drink alcoholic beverages or drive or operate machinery while taking pain medication Acetaminophen (Tylenol) may also be taken as needed for pain. Do NOT take more than 3 grams (3000 mg) of acetaminophen (Tylenol) in a 24-hour period. Medication Prior Authorization: If any of your prescribed medications require prior-authorization from your insurance company, you will be notified of this by your pharmacy. The prior authorization process must be completed by your surgeon's office. Please notify the surgeon's office if this occurs as a different medication may need to be prescribed. Do NOT call the hospital to discuss medications once you have been discharged from the hospital. Narcotic Medication Safety Instructions: If you are being prescribed narcotic pain medication as part of your discharge regimen, please use extreme caution when using this medication and take only as directed by your surgeon. Overdose of narcotics can be fatal. Signs of overdose may include (but are not limited to): - Decreased or altered consciousness - Pinpoint pupils - Slowed breathing or difficulty breathing Please instruct your family and friends to be aware of these warning signs. If you believe you or someone you know has taken too much medication, please contact your surgeon's office or call 911 immediately. Managing Constipation: Increase water intake to at least 8 glasses per day. Add fiber to your diet by eating fruit, vegetables, and grains. Take stool softener every day while taking any narcotic medications (oxycodone, Percocet, hydrocodone, Vicodin, hydromorphone, Dilaudid, tramadol, etc) and as- needed thereafter. Colace, Senna, or milk of magnesia may be purchased [id number] at your pharmacy. Ask your pharmacist for help with locating these at the pharmacy. Decrease narcotic medication use, as tolerated, as these may cause constipation. Ice: You may ice the affected area, as needed, for comfort and pain relief. Do NOT apply ice directly to the skin or incision. Always use a clean dressing or towel as a barrier to the skin and incision. * Attachments The following attachments cannot be sent through Care Everywhere. * General Anesthesia Adult Care After (Israeli) documented in this encounter Medications at Time of Discharge amantadine (SYMMETREL) 100 MG capsule Take 1 capsule (100 mg total) by mouth 2 (two) times a day. 3 10/15/2018 carbidopa-levodopa (SINEMET CR) 50-200 MG per tablet Take 1 tablet by mouth nightly. carbidopa-levodopa ER (SINEMET CR) 25-100 MG per tabletIndications:Jeancarlos pleitezism Take 1 tablet by mouth 4 (four) times a day. cephalexin (KEFLEX) 500 MG capsuleIndications:Shayy arkinson's disease, unspecified whether dyskinesia present, unspecified whether manifestations fluctuate (HCC) Take 1 capsule (500 mg total) by mouth 2 (two) times a day. 6 capsule 11/10/2024 5 citalopram (CeleXA) 20 MG tablet Take 2 tablets (40 mg total) by mouth nightly. 4 11/09/2018 donepezil (ARICEPT) 5 MG tabletIndications:Jeancarlos pleitez's Disease Dementia Take 1 tablet (5 mg total) by mouth. ibuprofen (MOTRIN) 200 MG tablet Take 1 tablet (200 mg total) by mouth 4 times daily (every 6 hours) as needed for mild pain. oxyCODONE (ROXICODONE) 5 MG immediate release tabletIndications:Pa rkinson's disease, unspecified whether dyskinesia present, unspecified whether manifestations fluctuate (HCC) Take 0.5 tablets (2.5 mg total) by mouth 4 times daily (every 6 hours) as needed for moderate pain or severe pain. Max Daily Amount: 10 mg 6 tablet 11/10/2024 pimavanserin (Nuplazid) 34 MG capsuleIndications:P sychosis Take 1 capsule (34 mg total) by mouth every evening. sulfamethoxazole-tri methoprim (BACTRIM DS,SEPTRA DS) 800-160 MG per tabletIndications:Jeancarlos rkinson's disease, unspecified whether dyskinesia present, unspecified whether manifestations fluctuate (HCC) Take 1 tablet by mouth 2 (two) times a day. 6 tablet 11/10/2024 documented as of this encounter H&P Notes * Tracy Nolan MD - 11/10/2024 9:23 AM EDT INTERVAL NOTE - DAY OF SURGERY/PROCEDURE This note validates the H&P. The patient has been examined and there are no changes to the H&P. MD Signature: Tracy Nolan MD Date: 11/10/2024 Time: 9:23 AM Source Note - Julia Tran APRN - 11/08/2024 11:00 AM EDT Images from the original note were not included. PREOPERATIVE - HISTORY AND PHYSICAL Primary Care Provider: No,PCP (Inactive) Procedure Date Procedure Laterality Surgeon(s) 11/10/2024 CHANGE BATTERY NEUROSTIMULATOR N/A Tracy Noaln MD, Marissa Schumacher PA-C Anesthesia Preoperative Diagnosis [...] (Less than 1%) of MACE as per Tiffanie SAVANNAH cardiac risk calculator, No further preoperative cardiac testing is indicated. Preop Cardiology consult not needed. No prior medical transcription. Preop Testing: Prior testing reviewed Perioperative Plan [...] blood products (Patient Preference - not secondaryto Church Beliefs). no Family h/o anesthesia issues, unprovoked [...] INSERTION/REVISION DBS GENERATOR 08/[place] [facility] [place] Tobacco Use Smoking status: Former [...] documented in this encounter Miscellaneous Notes * Op Note - Tracy Nolan MD - 11/10/2024 11:14 AM EDT Images from the original note were not included. [facility] PERIOPERATIVE SURGICAL SERVICES [address] [place] [phone] OPERATIVE REPORT Patient Name: Cristal Wahl Date of : 1940 Date of Procedure: 11/10/2024 Surgeons and Role: * Tracy Nolan MD - Primary * Marissa Schumacher PA-C - Physician Body Shop Mechanic (Surgery required assistance in the form of retraction,suction, irrigation, protection of neural elements, hemostasis and other maneuvers, all of which were performed by the JEANCARLOS, who also performed the closure. No resident was available.) Pre-op Diagnosis: End of battery life of deep brain stimulator [Z45.42] Post-Op Diagnosis Codes: * End of battery life of deep brain stimulator [Z45.42] Procedure performed: 1- Replacement of bilateral STN DBS Percept PC IPG (instead of the Activa) 55511 Anesthesia: General EBL: 2ml UOP: No [place] Complications: None Drains: None Specimens: None Disposition: PACU Indication for Surgery: Ms Wahl is a very pleasant 83 y/o lady who is more than 6 years s/p implantation of the bilateral STN DBS IPG for her Parkinson's disease. She is here today for replacement of the IPG. The indications, benefits, alternatives and risks of the surgery were explained to the patient and she agreed to proceed. Operative Details: The patient was identified in the preoperative area and then brought back to the operating room where she was placed under general anesthesia without complications. The patient's head was positioned in a neutral position and lined up with her right infraclavicularspace. The surgical site, left infraclavicular, was prepped and drapped in the usual sterile fashion. That was followed by performing a surgical time out. Local anesthetic was injected in the subcutaneous plane. I then made an incision over the existing scar in the left infraclavicular region using a #15 bladethrough the existing scar line. That was followed by using a Bovie to open up the subcutaneous tissue and dissect a subcutaenous plane in the fat superficial to the existing pocket. I then used Metzenbaum scissors to open up the pseudocapsule around the existing IPG. I then removed the existing IPG from the pocket. I then loosened the screws around the leads. I then pulled out the leads from the IPG. It was then discarded. The leads were then introduced into the new Percept IPG in the top and bottom channels. The screws were tightened. Impedances were tested after the IPG was placed in the pocket after it was placed in a Tyrex pouch.All values were normal. We then irrigated thoroughly. That was followed by closure of the pocket using 2-0 Nurolon sutures. That was followed by closure of the subcutaneous layer with 3-0 vicryl and the skin with running 3-0 PDS. Dressing was applied and the patient was waken up and taken to PACU without complications. All counts were correct at the end of the procedure. Implants: Implant Name Type Inv. Item Serial No. Machine Set Up Operator Lot No. LRB No. Used Action [id number] NEUROSTIMULATOR IMPLANT 68MM X 51MM PERCEPT 2 CHNL 61G DEEP - [id number] Stimulator [id number] NEUROSTIMULATOR IMPLANT 68MM X 51MM PERCEPT 2 CHNL 61G DEEP [employer] N/A 1 Implanted [id number] ENVELOPE ABSORBABLE LG 3.35X3IN POLYARYLATE MINOCYCLINE - [id number] Tissue [id number] ENVELOPE ABSORBABLE LG 3.35X3IN POLYARYLATE MINOCYCLINE [employer] N/A 1 Implanted [id number] SECURITY SME NEUROSTIMULATOR PERCEPT PATIENT - [id number] Stimulator [id number] SECURITY SME NEUROSTIMULATOR PERCEPT PATIENT [employer] 1 Tracy Nolan MD Date: 11/10/2024 Cc: Yuly Natarajan MD * Brief Op Note - Marissa Schumacher PA-C - 11/10/2024 11:14 AM EDT REPLACEMENT OF DBS BATTERY LEFT Brief Op Note Cristal Wahl 83 y.o. 11/10/2024 Pre-op Diagnosis: Battery end of life of vagus nerve stimulator [Z45.42] Post-op Diagnosis: Post-Op Diagnosis Codes: * Battery end of life of vagus nerve stimulator [Z45.42] REPLACEMENT OF DBS BATTERY LEFT: 97339 (CPT??) Additional Procedures Surgeons and Role: * Tracy Nolan MD - Primary * Marissa Schumacher PA-C - Physician Body Shop Mechanic Procedure Description:replacement of left DBS battery. Procedure Findings:see surgeon's note for details. Anesthesia: Monitor Anesthesia Care Staff: Tank Truck Milk Receiver: Christy Maxwell RN; Kimberly Villaseñor RN Scrub Person: Judith Jackson, ANSWERER Estimated Blood Loss: * No values recorded between 11/10/2024 11:14 AM and 11/10/2024 11:44 AM * Specimens: * No specimens in log * Marissa Schumacher Date: 11/10/2024 Time: 11:44 AM Procedure(s): REPLACEMENT OF DBS BATTERY LEFT Additional Procedures documented in this encounter Plan of Treatment Upcoming Encounters Date Type Department Care Team (Late st Contact Info) Description 11/26/2024 3:00 PM EDT Office Visit [facility] Neurosurgery [address] [address] [facility] [address] [place] [id number] Marissa Schumacher, GABE [facility] [address] [place] [address] Scheduled Orders Name Type Priority Associated Diagnoses Orde r Schedule Urinalysis with Reflex to Microscopic and Culture Lab Routine Parkinson's disease, unspecified whether dyskinesia present, unspecified whether manifestations fluctuate (HCC) Ordered: 11/09/2024 documented as of this encounter Goals Goal Patient Goal Type Associated Problems Recent Progress Patient-Stated? Author Autogenera kj Goal Care Plan Autogenerated Problem No Daron Palacios, STUDENT documented as of this encounter Procedures Procedure Name Priority Date/Time Associated Diagnosis Comments WI INSJ/RPLCMT CRANIAL NEUROSTIM PULSE GENERATOR 11/10/2024 10:12 AM EDT Battery end of life of vagus nerve stimulator Special Needs ANESTHESIA: LMA, [employer] DBS, BERCHTOLD WITH HORSE-SHOE HEAD REST, SUPINE documented in this encounter Visit Diagnoses Diagnosis Parkinson's disease, unspecified whether dyskinesia present, unspecified whether manifestations fluctuate (HCC)- Primary Battery end of life of vagus nerve stimulator documented in this encounter Administered Medications Inactive Administered Medications - up to 1 most recent administrations Medication Order MAR Action Action Date Dose Rate Site lactated ringers (LR) infusion 100 mL/hr, Intravenous, Continuous, Starting on Fri11/10/24 at 1000, Pre-op, Start 1 hour pre-op acetaminophen (TYLENOL) tablet 975 mg 975 mg, Oral, Once PRN, mild pain 1-3, Starting on Fri11/10/24 at 1132, For 1 dose, PACU (only), Give when patient is tolerating PO bacitracin ointment Once PRN, Starting on Fri11/10/24 at 1129, Intra-op Given 11/10/2024 11:29 AM EDT 1 Application bupivacaine preservative free (MARCAINE) 0.5 % 30 mL, lidocaine-EPINEPHrine (XYLOCAINE/EPINEPHrine ) 1 %-1:009663 20 mL injection Once PRN, Starting on Fri11/10/24 at 1115, Intra-op Given 11/10/2024 11:15 AM EDT 10 mL celeCOXIB (CeleBREX) capsule 200 mg 200 mg, Oral, Once, On Fri11/10/24 at 1000, For 1 dose, Pre-op, On admission if patient LESS THAN 75 years old Given 11/10/2024 9:43 AM EDT 200 mg chlorhexidine (PERIDEX) 0.12 % oral solution 15 mL 15 mL, Mouth/Throat, Once, On Fri11/10/24 at 1000, For 1 dose, Pre-op, Rinse and brush Given 11/10/2024 9:46 AM EDT 15 mL chlorhexidine gluconate 2 % wipes Topical, Once, On Fri11/10/24 at 1000, For 1 dose, Pre-op, Apply to torso (front, back, sides), neck, arms, legs, and buttocks Given 11/10/2024 9:46 AM EDT 1 each fentaNYL (SUBLIMAZE) 100 mcg/2 mL injection 37.5 mcg 37.5 mcg, Intravenous, Every 5 min PRN, moderate to moderately severe pain 4-6, Starting on Fri11/10/24 at 1132, For 7 days, PACU (only), If a total of 250 mcg has been administered across all pain scales, contact an anesthesia provider for reassessment fentaNYL (SUBLIMAZE) 100 mcg/2 mL injection 50 mcg 50 mcg, Intravenous, Every 5 min PRN, severe to excruciating pain 7-10, Starting on Fri11/10/24 at 1132, For 7 days, PACU (only), If a total of 250 mcg has been administered across all pain scales, contact an anesthesia provider for reassessment gabapentin (NEURONTIN) capsule 300 mg 300 mg, Oral, Once, On Fri11/10/24 at 1000, For 1 dose, Pre-op, On admission Given 11/10/2024 9:43 AM EDT 300 mg ondansetron (ZOFRAN) injection 4 mg 4 mg, Intravenous, Once PRN, nausea, vomiting, Starting on Fri11/10/24 at 1132, For 1 dose, PACU (only) oxyCODONE (ROXICODONE) immediate release tablet 2.5 mg 2.5 mg, Oral, Every 30 min PRN, moderate to moderately severe pain 4-6, Starting on Fri11/10/24 at 1132, For 2 doses, PACU (only), Give when patient is tolerating PO oxyCODONE (ROXICODONE) immediate release tablet 5 mg 5 mg, Oral, Once PRN, severe to excruciating pain 7-10, Starting on Fri11/10/24 at 1132, For 1 dose, PACU (only), Give when patient is tolerating PO povidone-iodine (BETADINE) 5 % nasal swab kit Nasal, Once, On Fri11/10/24 at 1000, For 1 dose, Pre-op, Two swabs per nostril, 15 seconds each Given 11/10/2024 9:46 AM EDT 4 mL scopolamine (TRANSDERM-SCOP) 1 patch 1 patch, Transdermal, Once, On Fri11/10/24 at 1000, For 1 dose, Pre-op, On admission if patient LESS THAN 75 years old Do not use patch if damaged or cut. Patch Applied 11/10/2024 9:43 AM EDT 1 patch Behind Left Ear vancomycin (VANCOCIN) 1,000 mg in Ringers irrigation 250 mL OR irrigation Once PRN, Starting on Fri11/10/24 at 1116, Intra-op Given 11/10/2024 11:16 AM EDT 250 mL vancomycin (VANCOCIN) TOPICAL Once PRN, Starting on Fri11/10/24 at 1129, Intra-op Given 11/10/2024 11:29 AM EDT 1 g documented in this encounter Active and Recently Administered Medications Times are shown in EDT. Scheduled Medication Order 11/08/2024 11/09/2024 11/10/2024 ceFAZolin (ANCEF) 2 g in 20 mL SWFI syringe (premix) 2 g, Intravenous, Once, On Fri11/10/24 at 1000, For 1 dose, Pre-op, All antimicrobials used at [facility] require an indication. Please complete the following documentation. Surgical Prophylaxis 1000 (Due) celeCOXIB (CeleBREX) capsule 200 mg (COMPLETED) 200 mg, Oral, Once, On Fri11/10/24 at 1000, For 1 dose, Pre-op, On admission if patient LESS THAN 75 years old 0943 (Given - Provid er: Tomeka Salinas RN) chlorhexidine (PERIDEX) 0.12 % oral solution 15 mL (COMPLETED) 15 mL, Mouth/Throat, Once, On Fri11/10/24 at 1000, For 1 dose, Pre-op, Rinse and brush 0946 (Given - Provid er: Tomeka Salinas RN) chlorhexidine gluconate 2 % wipes (COMPLETED) Topical, Once, On Fri11/10/24 at 1000, For 1 dose, Pre-op, Apply to torso (front, back, sides), neck, arms, legs, and buttocks 0946 (Given - Provid er: Tomeka Salinas RN) gabapentin (NEURONTIN) capsule 300 mg (COMPLETED) 300 mg, Oral, Once, On Fri11/10/24 at 1000, For 1 dose, Pre-op, On admission 0943 (Given - Provid er: Tomeka Salinas RN) povidone-iodine (BETADINE) 5 % nasal swab kit (COMPLETED) Nasal, Once, On Fri11/10/24 at 1000, For 1 dose, Pre-op, Two swabs per nostril, 15 seconds each 0946 (Given - Provid er: Tomeka Salinas RN) scopolamine (TRANSDERM-SCOP) 1 patch 1 patch, Transdermal, Once, On Fri11/10/24 at 1000, For 1 dose, Pre-op, On admission if patient LESS THAN 75 years old Do not use patch if damaged or cut. 0943 (Patch Applied - Provider: Tomeka Salinas RN)1353 (Due: Patch Removed - Provider: Automatic Discharge Provider - Comment: Time automatically adjusted from order being discontinued) Continuous Medication Order 11/08/2024 11/09/2024 11/10/2024 lactated ringers (LR) infusion 100 mL/hr, Intravenous, Continuous, Starting on Fri11/10/24 at 1000, Pre-op, Start 1 hour pre-op 1000 (Due) PRN Medication Order 11/08/2024 11/09/2024 11/10/2024 acetaminophen (TYLENOL) tablet 975 mg 975 mg, Oral, Once PRN, mild pain 1-3, Starting on Fri11/10/24 at 1132, For 1 dose, PACU (only), Give when patient is tolerating PO bacitracin ointment (CANCELED) Once PRN, Starting on Fri11/10/24 at 1129, Intra-op 1129 (Given - Provid er: Marissa Schumacher PA-C - Comment: used for wound dressing) bupivacaine preservative free (MARCAINE) 0.5 % 30 mL, lidocaine-EPINEPHrine (XYLOCAINE/EPINEPHrine) 1 %-1:738658 20 mL injection (CANCELED) Once PRN, Starting on Fri11/10/24 at 1115, Intra-op 1115 (Given - Provid er: Tracy Nolan MD) fentaNYL (SUBLIMAZE) 100 mcg/2 mL injection 37.5 mcg(Linked Group 1) 37.5 mcg, Intravenous, Every 5 min PRN, moderate to moderately severe pain 4-6, Starting on Fri11/10/24 at 1132, For 7 days, PACU (only), If a total of 250 mcg has been administered across all pain scales, contact an anesthesia provider for reassessment fentaNYL (SUBLIMAZE) 100 mcg/2 mL injection 50 mcg(Linked Group 1) 50 mcg, Intravenous, Every 5 min PRN, severe to excruciating pain 7-10, Starting on Fri11/10/24 at 1132, For 7 days, PACU (only), If a total of 250 mcg has been administered across all pain scales, contact an anesthesia provider for reassessment ondansetron (ZOFRAN) injection 4 mg 4 mg, Intravenous, Once PRN, nausea, vomiting, Starting on Fri11/10/24 at 1132, For 1 dose, PACU (only) oxyCODONE (ROXICODONE) immediate release tablet 2.5 mg 2.5 mg, Oral, Every 30 min PRN, moderate to moderately severe pain 4-6, Starting on Fri11/10/24 at 1132, For 2 doses, PACU (only), Give when patient is tolerating PO oxyCODONE (ROXICODONE) immediate release tablet 5 mg 5 mg, Oral, Once PRN, severe to excruciating pain 7-10, Starting on Fri11/10/24 at 1132, For 1 dose, PACU (only), Give when patient is tolerating PO vancomycin (VANCOCIN) 1,000 mg in Ringers irrigation 250 mL OR irrigation (CANCELED) Once PRN, Starting on Fri11/10/24 at 1116, Intra-op 1116 (Given - Provid er: Tracy Nolan MD) vancomycin (VANCOCIN) TOPICAL (CANCELED) Once PRN, Starting on Fri11/10/24 at 1129, Intra-op 1129 (Given - Provid er: Tracy Nolan MD) Linked Groups Order Group 1: fentaNYL (SUBLIMAZE) 100 mcg/2 mL injection 37.5 mcgJump to med 37.5 mcg, Intravenous, Every 5 min PRN, moderate to moderately severe pain 4-6, Starting on Fri11/10/24 at 1132, For 7 days, PACU (only), If a total of 250 mcg has been administered across all pain scales, contact an anesthesia provider for reassessment Or fentaNYL (SUBLIMAZE) 100 mcg/2 mL injection 50 mcgJump to med 50 mcg, Intravenous, Every 5 min PRN, severe to excruciating pain 7-10, Starting on Fri11/10/24 at 1132, For 7 days, PACU (only), If a total of 250 mcg has been administered across all pain scales, contact an anesthesia provider for reassessment documented in this encounter Additional Health Concerns Active Problems Noted Date Diagnosed Date Autogenerated Problem 11/05/2024 documented as of this encounter Care Teams Grinder Operator External Tool Relationship Specialty Start Date End Date Yuly Natarajan MD [address] [place] [id number] PCP - General Neurology 11/10/24 documented as of this encounter
--- OUTSIDE RECORDS SUMMARY | 2024-11-12 12:37 | XMS_ITS | Encounter Summary ---
Author Organization [facility]ly [facility] Address [address] [place] [address] Care Team Providers Care Seed Expert Name Role Phone Pcp, No Primary Care Provider Yuly Vaz MD Primary Care Provider [phone] Lola Laura RN Unavailable [phone] Encounter Details Date Type Department Care Team (Late st Contact Info) Description 11/08/2024 Scanned Document [facility] Neurosurgery [place] 85 [facility] [address] [place] [phone] Tracy Payton MD 85 [facility] [place] [address] [place] [phone] Social History Tobacco Use Types Packs/Day Years [...] on file documented as of this encounter Functional Status * Audit-C Score Answer Date of Assessment Author 1 11/08/2024 11:22 AM EDT Yvan Marcial RN * Question Answer Date of Assessment Author Q1: How often do you have a drink containing alcohol? Monthly or less 11/08/2024 11:22 AM NERYT Sameera Marcial RN Q2: How many drinks containing alcohol do you have on a typical day when you are drinking? 1 or 2 11/08/2024 11:22 AM EDT Sameera Marcial RN Q3: How often do you have six or more drinks on one occasion? Never 11/08/2024 11:22 AM EDT Sameera Marcial RN documented as of this encounter Plan of Treatment Upcoming Encounters Date Type Department Care Team (Late st Contact Info) Description 11/26/2024 3:00 PM EDT Office Visit [facility] Neurosurgery [address] [phone] Marissa Schumacher PA-C [id number] [place] [address] documented as of this encounter Goals Goal Patient Goal Type Associated Problems Recent Progress Patient-Stated? Author Autogenera kj Goal Care Plan Autogenerated Problem No Daron Palacios, STUDENT documented as of this encounter Visit Diagnoses Not on filedocumented in this encounter Additional Health Concerns Active Problems Noted Date Diagnosed Date Autogenerated Problem 11/05/2024 documented as of this encounter Care Teams Seed Expert Relationship Specialty Start Date End Date Pcp, No [address] [place] [address] PCP - General 11/25/18 11/09/24 Yuly Natarajan MD 299 [facility] 119 [place] [address] PCP - General Neurology 11/10/24 Lola Laura, HONG 35 [facility] 5 [place] [address] Registered Nurse Surgery, Neurosurgery 11/12/24 documented as of this encounter
--- OUTSIDE RECORDS SUMMARY | 2024-11-12 12:37 | XMS_ITS | Encounter Summary ---
Author Organization [facility] Address [address] [place] [address] Care Team Providers Care Nitriles Lab Technician Name Role Phone Pcp, No Primary Care Provider Unavailabl e Reason for Visit * Reason Comments VNS Battery Encounter Details Date Type Department Care Team (Latest Contact Info) Description 11/08/2024 10:00 AM EDT Office Visit [facility] Neurosurgery [place] 85 [facility] [address] [place] [phone] Mery Canales PA-C [address] [place] [address] Parkinson's disease, unspecified whether dyskinesia present, unspecified [...] Taken Comments Blood Pressure - - Pulse 82 11/08/2024 10:12 AM EDT Temperature 36.1 ??C (97 ??F) 11/08/2024 10:12 AM EDT Respiratory Rate 16 11/08/2024 10:12 AM EDT Oxygen Saturation 97% 11/08/2024 10:12 AM EDT Inhaled Oxygen Concentration - - Weight - - Height 162.6 cm (5' 4 ) 11/08/2024 10:12 AM EDT Body Mass Index - - documented in this encounter Progress Notes * Mery Canales PA-C - 11/08/2024 10:00 AM EDT Thank you very much for consulting me regarding Cristal Wahl. I appreciate the opportunity to participate in her care. Please find my consultation note attached. Should you have any questions or concerns, please do not hesitate to contact our office at [phone]. Best regards, Mery Canales PA-C Neurosurgery [facility] Assessment and Plan: Cristal Wahl is a 83 y.o. female who is a right handed female with a past medical history of Parkinson's disease for the past 18 years. Her symptoms include tremors of all four extremities worseon the right than the left, rigidity, episodes of freezing and bradykinesia. She is 5 years s/p frameless stereotactic implantation of bilateral STN depth electrodes with a nonrechargeable left infraclavicular IPG implantation (2019) at [facility] who received great resolution of her rigidityand bradykinesia and followed closely by her neurologist Dr. Suárez. She presents today with her daughter as a new patient given over 3 year lapse of follow up. On (10/29), patient was alerted by her device that her left DBS battery was low, and is now for the last week and is seeking a replacement. Her neurology office is aware. She has a new [employer] sales representative (Jayson) given her previous one had since left the company. Her tremors have been significant for the last week throughout her whole body not just the right side. She additionally has been electric powerchair bound for the last year,so her BLE has some deconditioning on exam and rigidity along with tremors is prominent. Previous incision site is fully healed. I then proceeded to go over the risks, benefits and expectations of replacing her left DBS battery to length and patient confirmed she would like to proceed with the surgery that is scheduled on 11/10. Plan: Proceed with LEFT DBS battery replacement surgery as scheduled on 11/10 for treatment of end of life of DBS battery Preop clearance appt today Follow up with neurology postop with closer monitoring I spent over 40 minutes with the patient, more than 70% of which was spent counseling the patient. Chief Complaint: DBS battery replacement discussion (LEFT) History of Present Illness: Cristal Wahl is a very pleasant 83 y.o. who is a right handed female with a past medical history of Parkinson's disease (on sinimet) for the past 18 years. Her symptoms include tremors of all four extremities worse on the right than the left, rigidity, episodes of freezing and bradykinesia. She is 5 years s/p frameless stereotactic implantation of bilateral STN depth electrodes with a nonrechargeable left infraclavicular IPG implantation (2019) at [facility] who received great resolution of her rigidity and bradykinesia and followed closely by her neurologist Dr. Suárez. She presents today with her daughter. On (10/29), patient was alerted by her device that her left DBS battery was low, and is now forthe last week and is seeking a replacement. Her neurology office is aware. She has a new [employer] sales representative (Jayson) given her previous one (Gigi) had since left the company. Her tremors have been significant for the last week throughout her whole body not just the right side. She additionally has been electric powerchair bound for the last year per daughter. Patient reports she conducts PT exercises at home. Daughter states that neurology team was not monitoring her DBS battery percentage as frequently as they should have and expressed frustration. Past Medical History: No past medical history on file. Allergies: Allergies[1] Surgical History: No past surgical history on file. Social History: As noted per the scanned intake sheet Family History: Negative except where noted on the scanned intake sheet Review of Systems: SYSTEM Patient Reports: Constitutional Afebrile, No Chills and Non-anorexic Eyes No Eye Pain, No Double Vision, No Blurred Vision Cardiovascular No Chest Pain, No Palpitations, No Racing Heart, No Light Headedness, No Leg/Feet Swelling Respiratory No Wheezing, No Shortness of breath Gastrointestinal No Abdominal Pain, No Nausea, No Vomiting, No Diarrhea, No Constipation, No Bowel Incontinence Genitourinary No Painful Urination, No Urinary Incontinence, No Urinary Frequency, No Dark Urine, No Bloody Urine Musculoskeletal No Joint Pain Neurological No Headache, No Confusion, No Dizziness, No Fainting, No Memory Lapses/Loss, No Daytime Sleepiness Endocrine No Hot Flashes, No Night Sweats, No Muscle Weakness, No Generalized Weakness Hematologic/Lymphatic No Swollen Glands, No Swollen Glands in Neck, No Easy Bleeding, No Easy Bruising Patient is not on anticoagulants Physical Exam: A&Ox3, NAD The patient appears attentive and is asking appropriate questions Has good command of language Has appropriate fund of knowledge PERRL, brisk EOMI Face symmetric CN: grossly intact Sensation grossly intact and symmetrical Moving all ext spontaneously, FSCx4 RUE 5/5 Finger Abduction (T1 - 5th digit) 5/5 Hand Payable Representative (C8) 5/5 Elbow extension (C7) 5/5 Elbow flexion / wrist extension (C6) 5/5 Deltoid Abduction (C5) LUE 5/5 Finger Abduction (T1 - 5th digit) 5/5 Hand Payable Representative (C8) 5/5 Elbow extension (C7) 5/5 Wrist extension (C6) 5/5 Deltoid Abduction/ Elbow flexion (C5) Bilat UEs: (+2) Brachial Reflex (+2) Brachioradialis Reflex RLE: 3/5 Hip flexion (L2) 4+/5 Knee flexion 4+/5 Knee extension (L3) 4+/5 Dorsiflexion (L4) 4+/5 MCP extension (L5) 4+/5 Plantarflexion (S1) LLE: 3/5 Hip flexion (L2) 4+/5 Knee flexion 4+/5 Knee extension (L3) 3+/5 Dorsiflexion (L4) 3+/5 MCP extension (L5) 4+/5 Plantarflexion (S1) Bilat LE: (+2) Patellar Reflex (+2) Achilles Reflex UMN Reflexes: (-) Onble (-) Adductor Reflex (-) Ankle clonus Coordination: Intact Gait: wc bound Sign Mery Canales PA-C 11/08/2024 10:08 AM ADO: Tracy Payton MD P.S. This note is created using the voice recognition software dictation system to expedite documentation. I apologize for any typographical or grammatical errors [1] Allergies Allergen Reactions Latex Rash/Dermatitis Cosigned by Tracy Payton MD at 11/08/2024 12:57 PM EDT documented in this encounter Plan of Treatment Upcoming Encounters Date Type Department Care Team (Late st Contact Info) Description 11/26/2024 3:00 PM EDT Office Visit [facility] Neurosurgery [address] [phone] Marissa Schumacher PA-C [address] [place] [phone] documented as of this encounter Goals Goal [...] documented as of this encounter Care Teams Nitriles Lab Technician Relationship Specialty Start Date End Date Pcp, No [address] [place] [address] PCP - General 11/25/18 11/09/24 documented as of this encounter
--- OUTSIDE RECORDS SUMMARY | 2024-11-12 12:37 | XMS_ITS | Encounter Summary ---
Author Organization [facility] Address [address] [place] [address] Care Team Providers Care Kindergarten Aide Name Role Phone Pcp, No Primary Care Provider Yuly Vaz MD Primary Care Provider [phone] Lola Laura RN Unavailable [phone] Encounter Details Date Type Department Care Team (Late st Contact Info) Description 11/08/[address] [facility] Neurosurgery [place] 85 [facility] [address] [place] [phone] Tracy Payton MD 85 [facility] [place] [address] [place] [phone] Social History Tobacco Use Types Packs/Day Years [...] Description 11/26/2024 3:00 PM EDT Office Visit [facility] Neurosurgery [address] [phone] Marissa Schumacher PA-C [phone] [place] [address] documented as of this encounter Goals Goal Patient Goal Type Associated Problems Recent Progress Patient-Stated? Author Autogenera kj Goal Care Plan Autogenerated Problem No Daron Palacios, STUDENT documented as of this encounter Visit Diagnoses Not on filedocumented in this encounter Additional Health Concerns Active Problems Noted Date Diagnosed Date Autogenerated Problem 11/05/2024 documented as of this encounter Care Teams Kindergarten Aide Relationship Specialty Start Date End Date Pcp, No [address] [place] [address] PCP - General 11/25/18 11/09/24 Yuly Natarajan MD 299 [facility] 119 [place] [address] PCP - General Neurology 11/10/24 Lola Laura, HONG 35 [facility] 5 [place] [address] Registered Nurse Surgery, Neurosurgery 11/12/24 documented as of this encounter
--- OUTSIDE RECORDS SUMMARY | 2024-11-12 12:37 | XMS_ITS | Encounter Summary ---
Author Organization [facility] Address [address] [place] [address] Care Team Providers Care Wound Treatment Rn Name Role Phone Pcp, No Primary Care Provider Unavailabl e Encounter Details Date Type Department Care Team (Latest Contact Info) Description 11/08/2024 Travel Social History Tobacco Use Types Packs/Day [...] of Assessment Author 1 11/08/2024 11:22 AM Yvan Burnett RN * Question Answer Date of Assessment Author Q1: How often do you have a drink containing alcohol? Monthly or less 11/08/2024 11:22 AM Sameera Burnett RN Q2: How many drinks containing alcohol do you have on a typical day when you are drinking? 1 or 2 11/08/2024 11:22 AM Sameera Burnett RN Q3: How often do you have six or more drinks on one occasion? Never 11/08/2024 11:22 AM EDT Sameera Marcial RN documented as of this encounter Plan of Treatment Upcoming Encounters Date Type Department Care Team (Late st Contact Info) Description 11/26/2024 3:00 PM EDT Office Visit [facility] Neurosurgery [place] 100 [facility] 206 [place] [address] Marisas Schumacher PA-C 85 [facility] [address] [place] [address] documented as of this encounter Goals Goal Patient Goal Type Associated Problems Recent Progress Patient-Stated? Author Autogenera kj Goal Care Plan Autogenerated Problem No Daron Palacios, STUDENT documented as of this encounter Visit Diagnoses Not on filedocumented in this encounter Additional Health Concerns Active Problems Noted Date Diagnosed Date Autogenerated Problem 11/05/2024 documented as of this encounter Care Teams Wound Treatment Rn Relationship Specialty Start Date End Date Pcp, No [address] [place] [address] PCP - General 11/25/18 11/09/24 documented as of this encounter
--- OUTSIDE RECORDS SUMMARY | 2024-11-12 12:37 | XMS_ITS ---
Author Name [facility] Organization Unknown Results Test Name/Text Value Interpretation Date Range Source GFR/BSA.pred SerPlBld LJA-WMK-[id number] 73 [id number] 59 - [facility] BUN SerPl-mCnc 21mg/dL 8 - 21 HH CCT Sodium SerPl-sCnc 144mmol/L 136 - 145 [facility] BUN/Creat SerPl 26Ratio Above high normal 10 - 25 [facility] Potassium SerPl-sCnc 4.4mmol/L 3.4 - 5.3 [facility] Anion Gap Bld-sCnc 14 7 - 17 [facility] Glucose SerPl-mCnc 83mg/dL 65 - 99 [facility] Calcium SerPl-mCnc 9.2mg/dL 8.7 - 10 .5 [facility] CO2 SerPl-sCnc 25mmol/L 22 - 33 HH CCT Creat SerPl-mCnc 0.8mg/dL 0.4 - 1.1 [facility] Chloride SerPl-sCnc 105mmol/L 98 - 10 7 [facility] Basophils/leuk NFr Bld Auto 0.8% [facility] Eosinophil num Bld Auto 0.07Thou/uL 0 - 0.7 [facility] Monocytes/leuk NFr Bld Auto 11.9% [facility] Imm Granulocytes num Bld Auto 0.02Thou/uL 0 - 0.1 [facility] Imm Granulocytes/leuk NFr Bld Auto 0.3% [facility] PMV Bld Auto 11.1fL 7.5 - 12.[address] Hgb Bld-mCnc 13.1g/dL 11.7 - 15.7 HH CCT MCHC RBC Auto-mCnc 33.4g/dL 30 - 36 H[facility]CT MCV RBC Auto 93fL 80 - 100 HHCC T Neutrophils/leuk NFr Bld Auto 72.5% [facility] Monocytes num Bld Auto 0.79Thou/uL 0. 2 - 1.5 [facility] Eosinophil/leuk NFr Bld Auto 1.1% H[facility] Hct VFr Bld Auto 39.2% 35 - 47 [facility]CT MCH RBC Qn Auto 31pg 27 - 31 H HCCT Basophils num Bld Auto 0.05Thou/uL [id number] 0 - 0.2 [facility] Lymphocytes num Bld Auto 0.89Thou/uL Below low normal 1.5 - 4.5 [facility] Neutrophils num Bld Auto 4.8Thou/uL [id number] 2 - 7.5 [facility] Platelet num Bld Auto 306Thou/uL 150 - 450 [facility] RBC num Bld Auto 4.22Mil/uL [id number] 4 - 5.4 [facility] WBC num Bld Auto 6.6Thou/uL [id number] 4 - 11 [facility] Lymphocytes/leuk NFr Bld Auto 13.4% [facility] RDW RBC Auto-Rto 13.5% 11.5 - 14. 5 [facility] History of Medication Use Medication Directions Dispensed Refills Start Date End Date Stat citalopram (CeleXA) 20 MG tablet Take 20 mg by mouth daily. 11/09/2018 active citalopram (CeleXA) 20 MG tablet Take 2 tablets (40 mg total) by mouth nightly. 11/09/2018 active amantadine (SYMMETREL) 100 MG capsule Take 1 capsule (100 mg total) by mouth 2 (two) times a day. 10/15/2018 active carbidopa-levodopa (SINEMET CR) 50-200 MG per tablet Take 1 tablet by mouth. active Problems Problem Status Onset Date Problem Type Date of Resolution Source Parkinson's disease, unspecified whether dyskinesia present, unspecified whether manifestations fluctuate (HCC) active EncounterDiagnosisAct [facility] Encounters Encounter Type Encounter Reason Primary Diagnosis Location Date Ambulatory Parkinson's disease without dyskinesia, without mention of fluctuations Parkinson's disease without dyskinesia, without mention of fluctuations [facility] 11/10/2024 Ambulatory Encounter for other preprocedural examination Encounter for other preprocedural examination [facility] 11/08/2024 Ambulatory Parkinson's disease without dyskinesia, without mention of fluctuations Parkinson's disease without dyskinesia, without mention of fluctuations [facility] 11/08/2024 Care Team Organization Name Specialty Phone Email Start Date End Rajesh genao [facility] LYNNE MARCUM Primary Care 11/10/2024 [facility] PCP Mill Control Operator 11/08/2024 [facility] NO PCP Primary Care 11/02/2024
--- OUTSIDE RECORDS SUMMARY | 2024-11-12 12:37 | XMS_ITS | Clinical Summary ---
Author Organization [facility] Address [address] [place] [address] Care Team Providers Care Curing Pickling Packer Name Role Phone Yuly Natarajan MD Primary Care Provider [phone] Lola Laura RN Unavailable [phone] Allergies Active Allergy Reactions Criticality Noted Date Comments Latex Rash/Dermatitis Low 12/14/2018 Medications amantadine (SYMMETREL) 100 MG capsule Take 1 capsule (100 mg total) by mouth 2 (two) times a day. 3 9 Active carbidopa-levodopa (SINEMET CR) 50-200 MG per tablet Take 1 tablet by mouth nightly. Active citalopram (CeleXA) 20 MG tablet Take 2 tablets (40 mg total) by mouth nightly. 4 9 Active carbidopa-levodopa ER (SINEMET CR) 25-100 MG per tabletIndications:P arkinsonism Take 1 tablet by mouth 4 (four) times a day. Active pimavanserin (Nuplazid) 34 MG capsuleIndications: Psychosis Take 1 capsule (34 mg total) by mouth every evening. Active donepezil (ARICEPT) 5 MG tabletIndications:P arkinson's Disease Dementia Take 1 tablet (5 mg total) by mouth. Active ibuprofen (MOTRIN) 200 MG tablet Take 1 tablet (200 mg total) by mouth 4 times daily (every 6 hours) as needed for mild pain. Active oxyCODONE (ROXICODONE) 5 MG immediate release tabletIndications:P arkinson's disease, unspecified whether dyskinesia present, unspecified whether manifestations fluctuate (HCC) Take 0.5 tablets (2.5 mg total) by mouth 4 times daily (every 6 hours) as needed for moderate pain or severe pain. Max Daily Amount: 10 mg 6 tablet 5 11/14/19 25 Active cephalexin (KEFLEX) 500 MG capsuleIndications: Parkinson's disease, unspecified whether dyskinesia present, unspecified whether manifestations fluctuate (HCC) Take 1 capsule (500 mg total) by mouth 2 (two) times a day. 6 capsule 5 11/14/19 25 Active sulfamethoxazole-tr imethoprim (BACTRIM DS,SEPTRA DS) 800-160 MG per tabletIndications:P arkinson's disease, unspecified whether dyskinesia present, unspecified whether manifestations fluctuate (HCC) Take 1 tablet by mouth 2 (two) times a day. 6 tablet 5 11/14/19 25 Active Active Problems Problem Noted Date Diagnosed Date Parkinson's disease 12/14/2018 Assessment & Plan (11/08/2024 1:04 PM EDT): Symptoms poorly managed with failed neurostimulator battery. Patient remains on Sinemet CR as prescribed by Neurology and is scheduled for battery change on 11/10/2024. Brain aneurysm 12/14/2018 Arthritis of left knee 12/14/2018 Overview (12/14/2018): Cortisone shot and 40cc of fluid removed Dec 02 2018 Encounters Date Type Department Care Team Description 11/12/2024 Telephone [facility] [place] [address] [facility] [address] [place] [phone] Lola Laura RN 11/11/2024 Telephone [facility] Neuro[facility] [place] [address] [facility] [address] [place] [address] Marissa Schumacher PA-C Other 11/10/2024 10:42 AM EDT Anesthesia Event [facility] [address] [place] [phone] Betty Goss MD 11/10/2024 10:30 AM EDT - 11/10/2024 12:00 PM EDT Surgery [facility] [address] [facility] [place] [address] Tracy Payton MD REPLACEMENT OF DBS BATTERY LEFT 11/10/2024 8:44 AM EDT - 11/10/2024 1:53 PM EDT Hospital Encounter [facility] [address] [facility] [place] [address] Tracy Payton MD Parkinson's disease, unspecified whether dyskinesia present, unspecified whether manifestations fluctuate (HCC) (Primary Dx) Discharge Disposition: Home or Self Care 11/10/2024 Telephone [facility] Neuro[facility] [place] [address] [facility] [address] [place] [address] Tracy Payton MD 11/10/2024 Orders Only [facility] [place] [address] [facility] [address] [place] [address] Tracy Payton MD Parkinson's disease, unspecified whether dyskinesia present, unspecified whether manifestations fluctuate (HCC) (Primary Dx) 11/10/2024 Travel 11/08/2024 11:00 AM EDT Pre-Admission Testing [facility] [address] [facility] [address] [place] [address] Julia Tran APRN Preoperative examination (Primary Dx); Parkinson's disease, unspecified whether dyskinesia present, unspecified whether manifestations fluctuate (HCC) 11/08/2024 10:00 AM EDT Office Visit [facility] Neuro[facility] [place] [address] [facility] [address] [place] [address] Mery Canales, GABE Parkinson's disease, unspecified whether dyskinesia present, unspecified whether manifestations fluctuate (HCC) (Primary Dx) 11/08/2024 Scanned Document [facility] Neurosurgery [place] [address] [facility] [address] [place] [address] Tracy Payton MD 11/08/2024 Scanned Document [facility] Neuro[facility] [place] [address] [facility] [address] [place] [address] Tracy Payton MD 11/08/2024 Travel from Last 3 Months Social History Tobacco Use Types Packs/Day Years [...] AM EDT Sexual Orientation Not on file Last Filed Vital Signs Vital Sign Reading Time Taken Comments Blood Pressure 145/67 11/10/2024 1:00 PM EDT Pulse 76 11/10/2024 1:00 PM EDT Temperature 37.1 ??C (98.7 ??F) 11/10/2024 1:00 PM ED T Respiratory Rate 17 11/10/2024 1:00 PM EDT Oxygen Saturation 93% 11/10/2024 1:00 PM EDT Inhaled Oxygen Concentration - - Weight 83.9 kg (185 lb) 11/08/2024 11:41 AM EDT stated Height 162.6 cm (5' 4.02 ) 11/08/2024 11:41 AM E DT Body Mass Index 31.74 11/08/2024 11:41 AM EDT Plan of Treatment Upcoming Encounters Date Type Department Care Team (Late st Contact Info) Description 11/26/2024 3:00 PM EDT Office Visit [facility] Neurosurgery [address] [address] Marissa Schumacher, PA-C 85 [facility] [address] [place] [address] Health Maintenance Due Date Last Done Comments DTaP/Tdap/Td Vaccines (1 - Tdap) 12/14/1959 Pneumococcal Vaccines 50+ (1 of 1 - PCV) 12/14/1989 Zoster (Shingles) Vaccine (1 of 2) 12/14/1989 DXA Bone Density (Females,Ag es 65 and older) 12/14/2004 RSV Vaccine 60 years and old er and Patients (1 - 1-dose 75+ series) 12/14/2014 COVID-19 Vaccine ( - 2023-2 5 season) 2024 Influenza Vaccine 02/04/2025 Hepatitis B Vaccines Aged Out No long er eligible based on patient's age to complete this topic Goals Goal Patient Goal Type Associated Problems Recent Progress Patient-Stated? Author Autogenera kj Goal Care Plan Autogenerated Problem No Daron Palacios, STUDENT Medical Devices Implanted Type Area Senior Sql Server Database Developer Device Identifier Shelf Expiration Date Model / Serial / Lot Stimulator Stimulator Brain [id number] Neurostimulator Implant 68mm X 51mm Percept 2 Chnl 61g Deep - [id number] Implanted:Qty: 1 on 11/10/2024 by Tracy Payton MD at [facility] Stimulator N/A: Chest Wall [employer] [id number] / / [id number] Mysql Web Developer Neurostimulator Percept Patient - [id number] Implanted:Qty: 1 on 11/10/2024 at [facility] Stimulator [employer] [id number] / / [id number] Envelope Absorbable Lg 3.35x3in Polyarylate Minocycline - [id number] Implanted:Qty: 1 on 11/10/2024 by Tracy Payton MD at [facility] Tissue N/A: Chest [employer] [id number] / / Procedures Procedure Name Priority Date/Time Associated Diagnosis Comments ANES INTUBATION Routine 11/10/2024 11:12 AM EDT OR INSJ/RPLCMT CRANIAL NEUROSTIM PULSE GENERATOR 11/10/2024 10:12 AM EDT Battery end of life of vagus nerve stimulator Special Needs ANESTHESIA: LMA, [employer] DBS, BERCHTOLD WITH HORSE-SHOE HEAD REST, SUPINE ECG 12-LEAD Routine 11/08/2024 11:37 AM EDT Preoperative examination COMPLETE BLOOD COUNT, WITH DIFFERENTIAL Routine 11/08/2024 10:58 AM EDT Preoperative examination BASIC METABOLIC PANEL Routine 11/08/2024 10:58 AM EDT Preoperative examination from Last 3 Months Results * ANES INTUBATION (11/10/2024 11:12 AM EDT) Betty Grady MD - 11/10/2024 11:12 AM EDT Betty [...] avoiding the lips. us Betty Goss MD OR ANESTHESIA Final Result * ECG 12 lead (11/08/2024 11:37 AM EDT) Ventricular rate 82 BPM EKG [facility] Atrial rate 82 BPM EKG [facility] P-R interval 178 ms EKG [facility] QRS duration 132 ms EKG [facility] Q-T interval 394 ms EKG [facility] QTC calculation (Bazett) 461 ms EKG [facility] P axis 57 degrees EKG [facility] R axis 27 [facility] T axis 57 degrees [facility] 11/08/2024 11:3 7 AM EDT Narrative EKG [facility] - 11/08/2024 12:24 PM EDT Normal sinus rhythm Left bundle branch block Abnormal ECG No previous ECGs available Confirmed by MD Gar William ([id number]) on 11/08/2024 12:24:21 PM Procedure Note Amadeo Gar MD - 11/08/2024 Normal sinus rhythm Left bundle branch block Abnormal ECG No previous ECGs available Confirmed by MD Gar William ([id number]) on 11/08/2024 12:24:21 PM Julia Tran CANE WEIGHER ECG ORDERABLES Final Resul t [facility] * (ABNORMAL) Complete Blood Count, with differential (11/08/2024 10:58 AM EDT) White Blood Cell Count 6.6 4.0 - 11.0 Thou/uL 11/08/2024 4:26 PM EDT [facility] Platelet Count 306 150 - 450 Thou/uL 11/08/2024 4:26 PM T [facility] Hemoglobin 13.1 11.7 - 15.7 g/dL 11/08/2024 4:26 PM T [facility] Hematocrit 39.2 35.0 - 47.0 % 11/08/2024 4:26 PM [facility] Red Blood Cell Count 4.22 4.00 - 5.40 Mil/uL 11/08/2024 4:26 PM T [facility] MCV 93 80 - 100 fL 11/08/2024 4:26 PM EDT [facility] MCH 31.0 27.0 - 31.0 pg 11/08/2024 4:26 PM EDT [facility] MCHC 33.4 30.0 - 36.0 g/dL 11/08/2024 4:26 PM EDT [facility] RDW 13.5 11.5 - 14.5 % 11/08/2024 4:26 PM EDT [facility] MPV 11.1 7.5 - 12.5 fL 11/08/2024 4:26 PM EDT [facility] Neutrophils Auto 72.5 % 11/09/19 4:26 PM EDT [facility] Immature Granulocytes 0.3 % 11/08/2024 4:26 PM EDT [facility] Lymphocytes Auto 13.4 % 11/09/19 4:26 PM EDT [facility] Monocytes Auto 11.9 % 11/08/2024 4:26 PM EDT [facility] Eosinophils Auto 1.1 % 11/09/19 4:26 PM EDT [facility] Basophils Auto 0.8 % 11/08/2024 4:26 PM EDT [facility] Abs Neutrophils Auto 4.80 2.00 - 7.50 Thou/uL 11/08/2024 4:26 PM EDT [facility] Abs Immature Granulocytes 0.02 0.00 - 0.10 Thou/uL 11/08/2024 4:26 PM EDT [facility] Abs Lymphocytes Auto 0.89(L) 1.50 - 4.50 Thou/uL 11/08/2024 4:26 PM EDT [facility] Abs Monocytes Auto 0.79 0.20 - 1.50 Thou/uL 11/08/2024 4:26 PM EDT [facility] Abs Eosinophils Auto 0.07 0.00 - 0.70 Thou/uL 11/08/2024 4:26 PM EDT [facility] Abs Basophils Auto 0.05 0.00 - 0.20 Thou/uL 11/08/2024 4:26 PM EDT [facility] Blood Blood specimen / Unknown 11/08/2024 10:58 AM EDT 11/08/2024 3:56 PM EDT us Julia Tran CANE WEIGHER LAB BLOOD ORDERABLES Final Result [address] [address], [address] [address] * (ABNORMAL) Basic Metabolic Panel (11/08/2024 10:58 AM EDT) [facility] Glucose 83 65 - 99 mg/dL 11/08/2024 4:34 PM T [facility] Comment:Fasting: <100 mg/dL, Non-Fasting: <200 mg/dL (ADA 2005) Blood Urea Nitrogen (BUN) 21 8 - 21 mg/dL 11/08/2024 4:34 PM [facility] Creatinine 0.8 0.4 - 1.1 mg/dL 11/08/2024 4:34 PM [facility] eGFR 73 >59 11/08/2024 4:34 PM [facility] Comment:CKD-EPI (2020) in mL /min/1.73 sq meters. Sodium 144 136 - 145 mmol/L 11/08/2024 4:34 PM [facility] Potassium 4.4 3.4 - 5.3 mmol/L 11/08/2024 4:34 PM [facility] Chloride 105 98 - 107 mmol/L 11/08/2024 4:34 PM [facility] CO2 25 22 - 33 mmol/L 11/08/2024 4:34 PM [facility] Anion Gap 14 7 - 17 11/08/2024 4:34 PM [facility] Calcium 9.2 8.7 - 10.5 mg/dL 11/08/2024 4:34 PM [facility] BUN/Creatinine Ratio 26(H) 10.0 - 25.0 Ratio 11/08/2024 4:34 PM [facility] Blood Blood specimen / Unknown 11/08/2024 10:58 AM EDT 11/08/2024 3:56 PM EDT Julia Tran APRN LAB BLOOD ORDERABLES Final Result [address] [address], [address] [address] from Last 3 Months Additional Health Concerns Active Problems Noted Date Diagnosed Date Autogenerated Problem 11/05/2024 Insurance MEDICARE PART A & B [facility] MEDICARE Advance Directives * Full Code (Latest Code Status on File) Date Activated Date Inactivated Comments 11/10/2024 9:39 AM Care Teams Curing Pickling Packer Relationship Specialty Start Date End Date Yuly Natarajan MD [address] [address] PCP - General Neurology 11/10/24 Lola Laura, HONG [address] [place] [address] Registered Nurse Surgery, Neurosurgery 11/12/24
--- OUTSIDE RECORDS SUMMARY | 2024-11-12 12:37 | XMS_ITS | Encounter Summary ---
Author Organization [facility] Address [address] [place] [address] Care Team Providers Care Cylinder Inspector Name Role Phone Yuly Natarajan MD Primary Care Provider [phone] Reason for Visit * Auth/Cert Specialty Diagnoses / Procedures Referred By Rxoi maher Referred To Contact Diagnoses Battery end of life of vagus nerve stimulator Procedures [facility] INSJ/RPLCMT CRANIAL NEUROSTIM PULSE GENERATOR REPLACEMENT OF VNS BATTERY Referral ID Status Reason Start Date Expiration Date Visits Re quested Visits Authorized [id number] 1 1 Encounter Details Date Type Department Care Team (Latest Contact Info) Description 11/10/2024 8:44 AM EDT - 11/10/2024 1:53 PM EDT Hospital Encounter [facility] Services [address] [place] [address] Tracy Nolan MD 85 [facility] [address] [place] [address] Parkinson's disease, unspecified whether dyskinesia present, unspecified whether manifestations fluctuate (HCC) (Primary Dx) Discharge Disposition: Home or Self Care Social History Tobacco Use Types Packs/Day Years [...] discharge paperwork. Please ensure you contact the rep for your device so they are present [...] office know your preferred radiology location ([facility], [facility], etc) so that we may order [...] or milk of magnesia may be purchased [id number] at your pharmacy. Ask your pharmacist for [...] Everywhere. * General Anesthesia Adult Care After (Cook Islander) documented in this encounter Medications at Time of Discharge amantadine (SYMMETREL) 100 MG capsule Take 1 capsule (100 mg total) by mouth 2 (two) times a day. 3 10/15/2018 carbidopa-levodopa (SINEMET CR) 50-200 MG per tablet Take 1 tablet by mouth nightly. carbidopa-levodopa ER (SINEMET CR) 25-100 MG per tabletIndications:Jeancarlos rkinsonism Take 1 tablet by mouth 4 (four) times a day. cephalexin (KEFLEX) 500 MG capsuleIndications:P arkinson's disease, unspecified whether dyskinesia present, unspecified [...] Daily Amount: 10 mg 6 tablet 11/10/2024 5 pimavanserin (Nuplazid) 34 MG capsuleIndications:P sychosis Take 1 capsule (34 mg total) by mouth every evening. sulfamethoxazole-tri methoprim (BACTRIM DS,SEPTRA DS) 800-160 MG per tabletIndications:Pa rkinson's disease, unspecified whether dyskinesia present, unspecified whether manifestations fluctuate (HCC) Take 1 tablet by mouth 2 (two) times a day. 6 tablet 11/10/2024 5 documented as of this encounter H&P Notes * Tracy Nolan MD - 11/10/2024 9:23 AM EDT INTERVAL NOTE - DAY OF SURGERY/PROCEDURE This note validates the H&P. The patient has been examined and there are no changes to the H&P. Signature: Tracy Nolan MD Date: 11/10/2024 Time: [...] Preop Cardiology consult not needed. No prior administrative assistant. Preop Testing: Prior testing reviewed Perioperative Plan [...] blood products (Patient Preference - not secondaryto Judaism Beliefs). no Family h/o anesthesia issues, unprovoked [...] INSERTION/REVISION DBS GENERATOR 08/2018 dR Nolan AT [facility] Social History Tobacco Use Smoking status: Former [...] from the original note were not included. [facility] PERIOPERATIVE SURGICAL SERVICES [address] [facility] [address] OPERATIVE REPORT Patient Name: Cristal Wahl Date of : 1940 Date of Procedure: 11/10/2024 Surgeons and Role: * Tracy Nolan MD - Primary * TERE DupreeC - Physician Shell Maker Lockstitch (Surgery required assistance in the form of retraction,suction, irrigation, protection of neural elements, hemostasis and other maneuvers, all of which were performed by the PA, who also performed the closure. No resident was available.) Pre-op Diagnosis: End of battery life of deep brain stimulator [Z45.42] Post-Op Diagnosis Codes: * End of battery life of deep brain stimulator [Z45.42] Procedure performed: 1- Replacement of bilateral STN DBS Percept PC IPG (instead of the Activa) [address] Anesthesia: General EBL: 2ml UOP: No austin [...] Implant Name Type Inv. Item Serial No. Hardwood Sawyer Lot No. LRB No. Used Action [id number] NEUROSTIMULATOR IMPLANT 68MM X 51MM PERCEPT 2 CHNL 61G DEEP - [id number] Stimulator [id number] NEUROSTIMULATOR IMPLANT 68MM X 51MM PERCEPT 2 CHNL 61G DEEP [employer] N/A 1 Implanted [id number] ENVELOPE ABSORBABLE LG 3.35X3IN POLYARYLATE MINOCYCLINE - [id number] Tissue [id number] ENVELOPE ABSORBABLE LG 3.35X3IN POLYARYLATE MINOCYCLINE [employer] N/A 1 Implanted [id number] NUCLEAR MEDICINE SUPERVISOR NEUROSTIMULATOR PERCEPT PATIENT - [id number] Stimulator [id number] NUCLEAR MEDICINE SUPERVISOR NEUROSTIMULATOR PERCEPT PATIENT [employer] 1 Tracy [...] stimulator [Z45.42] REPLACEMENT OF DBS BATTERY LEFT: 97448 (CPT??) Additional Procedures Surgeons and Role: * Tracy Nolan MD - Primary * Marissa Schumacher PA-C - Physician Shell Maker Lockstitch Procedure Description:replacement of left DBS battery. Procedure Findings:see surgeon's note for details. Anesthesia: Monitor Anesthesia Care Staff: Steamfitter: Christy Maxwell RN; Kimberly Villaseñor RN Scrub Person: Judith Jackson CST Estimated Blood Loss: * No values recorded [...] EDT Office Visit [facility] [place] [address] [facility] [address] [place] [address] Marissa Schumacher PA-C [address] [facility] [address] [place] [address] Scheduled Orders Name Type Priority Associated Diagnoses Orde r Schedule Urinalysis with Reflex to Microscopic and Culture Lab Routine Parkinson's disease, unspecified whether dyskinesia present, unspecified whether manifestations fluctuate (HCC) Ordered: 11/09/2024 documented as of this encounter Goals Goal Patient Goal Type Associated Problems Recent Progress Patient-Stated? Author Autoelena underwood Goal Care Plan Autogenerated Problem No Daron Palacios, STUDENT documented as of this encounter Procedures Procedure Name Priority Date/Time Associated Diagnosis Comments [place] INSJ/RPLCMT CRANIAL NEUROSTIM PULSE GENERATOR 11/10/2024 10:12 AM EDT Battery end of life of vagus nerve stimulator Special Needs ANESTHESIA: LMA, [employer] DBS, BERCHTOLD WITH HORSE-SHOE HEAD REST, SUPINE documented in this encounter Visit Diagnoses Diagnosis Parkinson's disease, unspecified whether dyskinesia present, unspecified whether manifestations fluctuate (HCC)- Primary documented in this encounter Administered Medications Inactive [...] (only), Give when patient is tolerating PO celeCOXIB (CeleBREX) capsule 200 mg 200 mg, [...] AM EDT 1 patch Behind Left Ear documented in this encounter Active and Recently Administered Medications Times are shown in EDT. Scheduled Medication Order 11/08/2024 11/09/2024 11/10/2024 ceFAZolin (ANCEF) 2 g in 20 mL SWFI syringe (premix) 2 g, Intravenous, Once, On Fri11/10/24 at 1000, For 1 dose, Pre-op, All antimicrobials used at [facility] require an indication. Please complete the following [...] 0.5 % 30 mL, lidocaine-EPINEPHrine (XYLOCAINE/EPINEPHrine) 1 %-1:280925 20 mL injection (CANCELED) Once PRN, Starting [...] documented as of this encounter Care Teams Cylinder Inspector Relationship Specialty Start Date End Date Yuly Natarajan MD [address] [address] PCP - General Neurology 11/10/24 documented as of this encounter
--- OUTSIDE RECORDS SUMMARY | 2024-11-12 12:37 | XMS_ITS ---
Author Organization [facility] Support Name Relationship Address Phone EDUARD HONG Agent [address] [place], [place] [phone] EDUARD HONG Emergency Contact [address] [place] [address] JOSEPH WINN Emergency Contact [address] [place] [address] Allergies and adverse reactions Code CodeSystem Substance Reaction Severity StartDate Concern Status latex Unknown 08/30/2018 active Mental Status Section Date Assessment Total Score Description 09/14/2018 BIMS 15 cognitively int act CAM 0 No delirium ind icated PHQ-9 00 09/13/2018 BIMS 15 cognitively int act CAM 0 No delirium ind icated PHQ-9 00 Problems Problem # Description Date of onset Resolved Date Code CodeSystem Concern Status 1 BILATERAL PRIMARY OSTEOARTHRITIS OF KNEE 08/30/[address] active 2 ENCOUNTER FOR SURGICAL AFTERCARE FOLLOWING SURGERY ON THE NERVOUS SYSTEM 08/30/[address] active 3 ESSENTIAL (PRIMARY) HYPERTENSION 08/30/[address] active 4 GASTRIC ULCER, UNSPECIFIED ACUTE OR CHRONIC, WITHOUT HEMORRHAGE OR PERFORATION 08/30/[address] active 5 MAJOR DEPRESSIVE DISORDER, SINGLE EPISODE, MILD 08/30/[address] active 6 MUSCLE WEAKNESS (GENERALIZED) 08/30/[address] active 7 OTHER ABNORMALITIES OF GAIT AND MOBILITY 08/30/[address] active 8 PARKINSON'S DISEASE 08/30/2018 20675916 SNOMED C T active Reason for Referral No Reasons for Referral Entered Social History Social History Observation Description Start Date End Date Code Code System Current Smoking Status Tobacco smoking consumption unknown 296379249 SNOMED CT Sex Assigned At Female 1940 [address]-9 [facility] Vital Signs Code Code System Vitals Name Values and Units Timing Information 9279-1 [facility] Respiratory Rate Value=18.0 Units=/m in 09/12/2018 8462-4 [facility] Blood Pressure-Diastolic Value=72 Un its=mmHg 09/12/2018 8480-6 [facility] Blood Pressure-Systolic Awwmn=955 Un its=mmHg 09/12/2018 8310-5 [facility] Body Temperature Value=98.4 Units=?? F 09/12/2018 8867-4 [facility] Heart rate Value=78.0 Units=/min 03/2019 38069-6 [facility] O2 % BldC Oximetry Value=96.0 Units= % 09/12/2018 8302-2 [facility] Height Value=64.0 Units=Inches 09/09/2018 95628-4 [facility] Pain Level Value=0.0 08/31/2018 19714-3 [facility] Weight Rkplq=394.3 Units=Lbs
--- OUTSIDE RECORDS SUMMARY | 2024-11-12 12:37 | XMS_ITS | Data Portability ---
Author Organization [facility], [facility] Address [address] [place] [address] Care Team Providers Care Operations Administrator Name Role Phone [facility] Neurologist YUDITH KYLE Neuropsychologist [phone] CORIE GONSALEZ Phys. Med. & Rehab CAMERON CROSS Orthopedist DAYTON BUI Primary Care Provider LYNNE MARCUM Neurologist ZION COATES Outsole Molder Assessment Encounter Date Assessment Date Assessment LastModified by Organization Details LastModified Time 09/22/2023 09/22/2023 We completed you r Medicare Wellness exam today. This was an opportunity to assess your overall well being including your ability to care for yourself, your mobility, memory, mental health, as well as your safety. With advancing age, it is important to assign someone in your life as your Health Care Proxy (HCP). This person should know what is important to you and what your wishes are for medical procedures if you cannot communicate your wishes yourself (severe illness, unconsciousness). We discussed having a completed Health Care Proxy form today. In addition, today we started a conversation about your End of Life wishes. These conversations will continue over the years. Please consider reading the book, Being Mortal by Kev Merchant to help frame future conversations. We discussed the purpose of a MOLST form (Medical Orders for Life Sustaining Treatment) and completed this form if appropriate per your wishes. Vision and Hearing are senses that are critically important as we age. When impaired, they can contribute to memory loss, falls, and make it harder to drive, talk to family and friends, and engage in the world. Please get your vision checked yearly and your hearing checked when you start to notice hearing loss. We discussed approaches to lowering your risk of heart disease and stroke . Your blood pressure is at goal. Your cholesterol . We discussed cancer screening you may need as well as vaccines to prevent infections. Colon Cancer : Your risk of colon cancer is . Due for colorectal screening:not needed due to age. If you are not planning to have a colonoscopy please screen with stool cards yearly. Breast Cancer : Breast Cancer Screening (mammography). Next mammogram due: not needed. Cervical Cancer Screening (pap test). Next pap due: not needed. Influenza Vaccine : Flu shot yearly. Tetanus Vaccine : Every 10 years. Due: 2027. The following vaccines are available from your pharmacy: Pneumonia Vaccine : PCV20: once after age 65. Shingles Vaccine : 2 shots after age 50. Covid Vaccine : Make sure you have received the most up to date covid vaccine. Your personal health goal for the year is: malik Not available 09/24/2023 08:32:52 08/14/2024 08/14/2024 Patient agreed t o this visit via phone or secure telehealth platform. Patient understands this is a scheduled visit and the usual procedures with regard to billing and confidentiality apply. Patient was notified that the provider location is [facility] Patient location: home During the visit the patient? s medical history and medical record were reviewed. The patient was notified to call our office for worsening or urgent symptoms. [email or web address] Not available 08/14/2024 10:53:38 Plan of Treatment Reminders Order Date Submit Date Provider Last Modified By Organization Details Last Modified Time Details Appointments Medica l Manage ment 15 2024 12:00P M Dayton Issa josephine, CHANGE MANAGEMENT MANAGER Not available Not available Not available Lab urinal ysis, dipsti ck [email or web address] [facility], [address] [facility], [place], [address], 04/04/2024 09:24:19 CBC 2023 024 [facility], [address] [place], [address], 09/22/2023 15:56:00 urinal ysis, dipsti ck, auto 2023 024 [facility], [address] [place] [address], [address], 10/22/2023 10:58:35 Referral None record ed. Procedures None record ed. Surgeries None record ed. Imaging US, blaroselinee r - check pre and post void residu al. Pt w increa sed freque ncy, incont innec, e suprap ubic discom fort. UA normal . Has geo callejas for urinar y retent ion 2023 024 [facility] ([facility]), [address], [place], [address], 04/21/2024 16:18:20 Medication Orders nirmat relvir 300 mg (150 mg x2)-ri tonavi r 100 mg tablet ,dose pack 2024 025 [id number], [address], [place], [address], 08/14/2024 11:21:25 Patient TargetsNo targets recorded. Patient Instructions Encounter Date Encounter Id Patient Instructions Last Modified By Organization Details Last Modified Time 09/22/2023 [id number] advance directives: care instructions [email or web address] Not available 09/22/2023 12:45:06 preventing falls: care instructions sutzschneider Not available 09/22/2023 12:45:06 hearing loss: care instructions sutzschneider Not available 09/22/2023 12:45:06 well visit, over 65: care instructions sutzschneider Not available 09/22/2023 12:45:06 Reason for Referral None Reported. Results Created Date Observation Date Name Description Value Unit Range Abnormal Flag Note LastModifiedBy Organization Detail LastModifiedTime 09/22/19 24 09/22/2023 CBC WBC 5.76 K/? ? ?L 3.98-1 0.04 Not Available [address], [address], 09/22/2023 15:56:00 09/22/19 24 09/22/2023 CBC RBC 4.31 M/? ? ?L 3.93-5 .22 Not Available [address], [address], 09/22/2023 15:56:00 09/22/19 24 09/22/2023 CBC HGB 13.0 g/dL 11.2-1 5.7 Not Available [address], [address], 09/22/2023 15:56:00 09/22/19 24 09/22/2023 CBC HCT 39.9 % 34.1-4 4.9 Not Available [address], [address], 09/22/2023 15:56:00 09/22/19 24 09/22/2023 CBC MCV 92.6 fL 79.4-9 4.8 Not Available [address], [address], 09/22/2023 15:56:00 09/22/19 24 09/22/2023 CBC MCH 30.2 pg 25.6-3 2.2 Not Available [address], [address], 09/22/2023 15:56:00 09/22/19 24 09/22/2023 CBC MCHC 32.6 g/dL 32.2-3 5.5 Not Available [address], [address], 09/22/2023 15:56:00 09/22/19 24 09/22/2023 CBC plt 273 K/? ? ?L 182-36 9 Not Available [address], [address], 09/22/2023 15:56:00 09/22/19 24 09/22/2023 CBC MPV 11.3 fL 9.4-12 .3 Not Available [address], [address], 09/22/2023 15:56:00 09/22/19 24 09/22/2023 CBC neut% 53.7 % 34.0-7 1.1 Not Available [address], [address], 09/22/2023 15:56:00 09/22/19 24 09/22/2023 CBC neut# 3.09 1.56-6 .13 Not Available [address], [address], 09/22/2023 15:56:00 09/22/19 24 09/22/2023 CBC lymph % 22.0 % 19.3-5 1.7 Not Available [address], [address], 09/22/2023 15:56:00 09/22/19 24 09/22/2023 CBC lymph # 1.27 K/? ? ?L 1.18-3 .74 Not Available [address], [address], 09/22/2023 15:56:00 09/22/19 24 09/22/2023 CBC mono% 20.5 % 4.7-12 .5 high SREV= Slide revie [facility]. Not Available [address], [address], 09/22/2023 15:56:00 09/22/19 24 09/22/2023 CBC mono# 1.18 0.24-0 .56 high Not Available [address], [address], 09/22/2023 15:56:00 09/22/19 24 09/22/2023 CBC eo% 2.8 % 0.7-5. 8 Not Available [address], [address], 09/22/2023 15:56:00 09/22/19 24 09/22/2023 CBC eo# 0.16 0.04-0 .36 Not Available [address], [address], 09/22/2023 15:56:00 09/22/19 24 09/22/2023 CBC baso% 0.7 % 0.1-1. 2 Not Available [address], [address], 09/22/2023 15:56:00 09/22/19 24 09/22/2023 CBC baso# 0.04 0.00-0 .08 Not Available [address], [address], 09/22/2023 15:56:00 09/22/19 24 09/22/2023 CBC RDW-CV 12.8 % 11.7-1 4.4 Not Available [address], [address], 09/22/2023 15:56:00 09/22/19 24 09/22/2023 CBC Ig% 0.300 % 0.000- 1.500 Ig % >0.5 Indic ates possi ble Left Shift Not Available [address], [address], 09/22/2023 15:56:00 09/22/19 24 09/22/2023 CBC Ig# 0.020 0.000- 0.093 Not Available [address], [address], 09/22/2023 15:56:00 09/22/19 24 09/22/2023 CBC NRBC% 0.0 % 0.0-0. 2 Not Available [address], [address], 09/22/2023 15:56:00 09/22/19 24 09/22/2023 CBC NRBC# 0.000 0.000- 0.012 Not Available [address], [address], 09/22/2023 15:56:00 09/22/19 24 09/23/2023 BASIC METAB OLIC PANEL glucose 98 mg/dL 70-100 Not Available [address], [address], 09/23/2023 15:31:23 09/22/19 24 09/23/2023 BASIC METAB OLIC PANEL BUN 32 mg/dL 7-18 high Not Available [address], [address], 09/23/2023 15:31:23 09/22/19 24 09/23/2023 BASIC METAB OLIC PANEL creatinine 1.3 mg/dL 0.8-1. 3 Not Available [address], [address], 09/23/2023 15:31:23 09/22/19 24 09/23/2023 BASIC METAB OLIC PANEL B/C 24.6 ratio Not Available [address], [address], 09/23/2023 15:31:23 09/22/19 24 09/23/2023 BASIC METAB OLIC PANEL GFR 40.8 mL/mi n abnormal >=60m L/min - Emi l or midly reduc ed <60mL /min- Decre ased kidne y funct ion <15mL /min - Kidne y failu re [facility] calcu lates estim ated Glome rular Filtr ation Rate (eGFR ) using the Chron ic Kidne y Disea se Epide miolo gy Colla borat ion (CKD- EPI) Equat ion (Shyam burgess et. al 2020) as recom eduardo d by the Natio nal Kidne y Found ation . eGFR is based on age, serum creat inine , and sex. CKD-E PI does not calcu late eGFR by race, does not apply to child evette (age <18 years ), and shoul d not be used in pregn jane. Not Available [address], [address], 09/23/2023 15:31:23 09/22/19 24 09/23/2023 BASIC METAB OLIC PANEL sodium 142 mmol/ L 136-14 5 Not Available [address], [address], 09/23/2023 15:31:23 09/22/19 24 09/23/2023 BASIC METAB OLIC PANEL potassium 4.2 mmol/ L 3.5-5. 1 Not Available [address], [address], 09/23/2023 15:31:23 09/22/19 24 09/23/2023 BASIC METAB OLIC PANEL chloride 101 mmol/ L 96-107 Not Available [address], [address], 09/23/2023 15:31:23 09/22/19 24 09/23/2023 BASIC METAB OLIC PANEL anion gap 10.6 5.0-15 .0 Not Available [address], [address], 09/23/2023 15:31:23 09/22/19 24 09/23/2023 BASIC METAB OLIC PANEL CO2 30 mmol/ L 21-32 Not Available [address], [address], 09/23/2023 15:31:23 09/22/19 24 09/23/2023 BASIC METAB OLIC PANEL calcium 9.0 mg/dL 8.5-10 .3 Not Available [address], [address], 09/23/2023 15:31:23 09/22/19 24 09/23/2023 LIPID PANEL cholesterol 211 mg/dL <200 mg/dl Melchor able 200-2 39 mg/dl Borde rline High >240 mg/dl High Not Available [address], [address], 09/23/2023 16:43:21 09/22/19 24 09/23/2023 LIPID PANEL triglyceride s 71 mg/dL <150 mg/dL Emi l 150-1 99 mg/dL Borde rline High 200-4 99 mg/dL High >500 mg/dL Very High Not Available [address], [address], 09/23/2023 16:43:21 09/22/19 24 09/23/2023 LIPID PANEL direct HDL 79 mg/dL <40 mg/dl - Major Risk for CHD >60 mg/dl - Negat sajan Risk for CHD Not Available [address], [address], 09/23/2023 16:43:21 09/22/19 24 09/23/2023 DIREC T LDL direct LDL 117 mg/dL RISK CATEG ORY LDL GOAL _ CHD or CHD Risk Equiv alent s <100 mg/dl (10-y ear risk >20%) 2+ Risk Facto rs <130 mg/dl (10-y ear risk <= 20%) 0-1 Risk Facto r? <160 mg/dl ? Almos t all peopl e with 0-1 risk facto r have a 10 year risk <10%, thus 10 year risk asses ment in peopl e with 0-1 risk facto r is not necgi almonte. Not Available [address], [address], 09/23/2023 16:43:23 10/21/19 24 10/22/2023 URINA LYSIS color YELLOW yellow Not Available [address], [address], 10/22/2023 10:58:35 10/21/19 24 10/22/2023 URINA LYSIS clarity CLEAR clear Not Available [address], [address], 10/22/2023 10:58:35 10/21/19 24 10/22/2023 URINA LYSIS glucose NEGATI VE negati ve Not Available [address], [address], 10/22/2023 10:58:35 10/21/19 24 10/22/2023 URINA LYSIS bilirubin NEGATI VE negati ve Not Available [address], [address], 10/22/2023 10:58:35 10/21/19 24 10/22/2023 URINA LYSIS ketones TRACE negati ve abnormal Not Available [address], [address], 10/22/2023 10:58:35 10/21/19 24 10/22/2023 URINA LYSIS specific gravity >=1.03 0 1.001- 1.035 Not Available [address], [address], 10/22/2023 10:58:35 10/21/19 24 10/22/2023 URINA LYSIS pH 5.5 5.0-8. 0 Not Available [address], [address], 10/22/2023 10:58:35 10/21/19 24 10/22/2023 URINA LYSIS protein NEGATI VE negati ve Not Available [address], [address], 10/22/2023 10:58:35 10/21/19 24 10/22/2023 URINA LYSIS urobilinogen 0.2 E.U./D L <1.0 Not Available [address], [address], 10/22/2023 10:58:35 10/21/19 24 10/22/2023 URINA LYSIS nitrates NEGATI VE negati ve Not Available [address], [address], 10/22/2023 10:58:35 10/21/1910/22/2023 URINA LYSIS blood NEGATI VE negati ve Not Available [address], [address], 10/22/2023 10:58:35 10/21/19 24 10/22/2023 URINA LYSIS leukocytes NEGATI VE negati ve Not Available [address], [address], 10/22/2023 10:58:35 10/28/19 24 10/29/2023 COMP. METAB OLIC PANEL glucose 102 mg/dL 70-100 high Not Available [address], [address], 10/29/2023 10:56:38 10/28/19 24 10/29/2023 COMP. METAB OLIC PANEL BUN 21 mg/dL 7-18 high Not Available [address], [address], 10/29/2023 10:56:38 10/28/19 24 10/29/2023 COMP. METAB OLIC PANEL creatinine 0.9 mg/dL 0.8-1. 3 Not Available [address], [address], 10/29/2023 10:56:38 10/28/19 24 10/29/2023 COMP. METAB OLIC PANEL B/C 23.3 ratio Not Available [address], [address], 10/29/2023 10:56:38 10/28/19 24 10/29/2023 COMP. METAB OLIC PANEL GFR >=60ML /MIN mL/mi n normal >=60m L/min - Emi l or midly reduc ed <60mL /min- Decre ased kidne y funct ion <15mL /min - Kidne y failu re [facility] calcu lates estim ated Glome rular Filtr ation Rate (eGFR ) using the Chron ic Kidne y Disea se Epide miolo gy Colla borat ion (CKD- EPI) Equat ion (Shyam burgess et. al 2020) as recom eduardo d by the Natio nal Kidne y Found ation . eGFR is based on age, serum creat inine , and sex. CKD-E PI does not calcu late eGFR by race, does not apply to child evette (age <18 years ), and shoul d not be used in pregn jane. Not Available [address], [address], 10/29/2023 10:56:38 10/28/19 24 10/29/2023 COMP. METAB OLIC PANEL sodium 141 mmol/ L 136-14 5 Not Available [address], [address], 10/29/2023 10:56:38 10/28/19 24 10/29/2023 COMP. METAB OLIC PANEL potassium 4.9 mmol/ L 3.5-5. 1 Not Available [address], [address], 10/29/2023 10:56:38 10/28/19 24 10/29/2023 COMP. METAB OLIC PANEL chloride 103 mmol/ L 96-107 Not Available [address], [address], 10/29/2023 10:56:38 10/28/19 24 10/29/2023 COMP. METAB OLIC PANEL anion gap 9.0 5.0-15 .0 Not Available [address], [address], 10/29/2023 10:56:38 10/28/19 24 10/29/2023 COMP. METAB OLIC PANEL CO2 29 mmol/ L 21-32 Not Available [address], [address], 10/29/2023 10:56:38 10/28/19 10/29/2023 COMP. METAB OLIC PANEL calcium 9.1 mg/dL 8.5-10 .3 Not Available [address], [address], 10/29/2023 10:56:38 10/28/19 24 10/29/2023 COMP. METAB OLIC PANEL total protein 7.0 g/dL 6.4-8. 2 Not Available [address], [address], 10/29/2023 10:56:38 10/28/19 24 10/29/2023 COMP. METAB OLIC PANEL albumin 3.8 g/dL 3.4-5. 0 Not Available [address], [address], 10/29/2023 10:56:38 10/28/19 24 10/29/2023 COMP. METAB OLIC PANEL globulin 3.2 g/dL Not Available [address], [address], 10/29/2023 10:56:38 10/28/19 24 10/29/2023 COMP. METAB OLIC PANEL A/G 1.2 ratio 0.8-2. 0 Not Available [address], [address], 10/29/2023 10:56:38 10/28/19 24 10/29/2023 COMP. METAB OLIC PANEL total bilirubin 0.50 mg/dL 0.00-1 .00 Not Available [address], [address], 10/29/2023 10:56:38 10/28/19 24 10/29/2023 COMP. METAB OLIC PANEL AST 13 U/L 0-37 Not Available [address], [address], 10/29/2023 10:56:38 10/28/19 24 10/29/2023 COMP. METAB OLIC PANEL ALT 8 U/L 6-63 Not Available [address], [address], 10/29/2023 10:56:38 10/28/19 24 10/29/2023 COMP. METAB OLIC PANEL alk. phos. 93 U/L 50-136 Not Available [address], [address], 10/29/2023 10:56:38 04/03/20 24 04/03/2024 POC UA glu UA NEGATI VE Not Available [facility] [address] [place] [address], [address], 04/03/2024 10:12:17 04/03/20 24 04/03/2024 POC UA clarity UA CLEAR Not Available [facility] [address] [place] [address], [address], 04/03/2024 10:12:17 04/03/20 24 04/03/2024 POC UA uro UA 0.[address] [facility] [address] [place] [address], [address], 04/03/2024 10:12:17 04/03/20 24 04/03/2024 POC UA ket UA NEGATI VE Not Available [facility] [address] [place] [address], [address], 04/03/2024 10:12:17 04/03/20 24 04/03/2024 POC UA pro UA NEGATI VE Not Available [facility] [address] [place] [address], [address], 04/03/2024 10:12:17 04/03/20 24 04/03/2024 POC UA nit UA NEGATI VE Not Available [facility] [address] [place] [address], [address], 04/03/2024 10:12:17 04/03/20 24 04/03/2024 POC UA avery UA NEGATI VE Not Available [facility] [address] [place] [address], [address], 04/03/2024 10:12:17 04/03/20 24 04/03/2024 POC UA pH UA 6.[address] [facility] [address] [place], [address], 04/03/2024 10:12:17 04/03/20 24 04/03/2024 POC UA SG UA >=1.[address] [facility] [address] [place], [address], 04/03/2024 10:12:17 04/03/20 24 04/03/2024 POC UA color UA YELLOW Not Available [facility] [address] [place], [address], 04/03/2024 10:12:17 04/03/20 24 04/03/2024 POC UA blo UA NEGATI VE Not Available [facility] [address] [place], [address], 04/03/2024 10:12:17 04/03/20 24 04/03/2024 POC UA junior UA NEGATI VE Not Available [facility] [address] [place], [address], 04/03/2024 10:12:17 04/21/20 24 04/21/2024 US, [facility] CLINIC AL HISTOR Y: Freque nt urinat ion. TECHNI QUE: 2D sonogr aphy of the bladde r. COMPAR IGOR: None. FINDIN GS: Ureter al jets are visual ized bilate rally. The bladde r is normal in appear ance. Prevoi d bladde r volume : 124 mL Postvo id bladde r volume : 0 mL IMPRES PILY: 0 mL postvo id residu al. The bladde r is otherw ise unrema rkable . Readin g Physic charissa: Laz Trimble ms [id number] [facility] [address], [place], [address], 07/05/2024 09:35:39 Result Notes None recorded. Problems Name Problem SNOMED Code Status Onset Date Resolution Date Notes Provider Name and Address Organization Details Recorded Time Single major depressi ve episode, moderate Active Not Available [facility] 0 11:09:14 COVID-19 597877618 Active 2021 Jennifer Pugh MD [address] [place] [address], [address] , [facility] 2 15:31:25 Nodule of lung 515165798 Active 2023 2 sub 5mm nodules RUL CT Jul 2023, consider f/u 1 year Dayton Correa er, CHANGE MANAGEMENT MANAGER [address] [place], [address] , [facility] 4 11:43:22 Benign essentia l hyperten pily 5871926 Active 2023 Dayton Correa er, CHANGE MANAGEMENT MANAGER [address] [place], [address] , [facility] 4 13:55:43 Mixed hyperlip idemia 770250140 Active 2004 Not Available [facility] 0 11:09:14 Dyspnea 883316476 Completed 200205/26/2013 Not Available [facility] 3 02:02:44 Abnormal gait 47656390 Active 2007 Not Available [facility] 0 11:09:14 Precordi al pain 29823107 Completed 200405/26/2013 Not Available [facility] 3 02:02:30 Cough 96079535 Completed 200201/24/2011 Not Available [facility] 3 03:02:36 Hematoch ezia 218851634 Completed 200305/26/2013 Not Available [facility] 3 02:03:47 Benign essentia l hyperten pily 5261857 Completed 200603/17/2012 Dayton Correa er, CHANGE MANAGEMENT MANAGER [address] [place], [address] , [facility] 4 13:55:43 Acute cystitis 48857617 Completed 200005/26/2013 Not Available [facility] 3 02:02:31 Pain of hip region 37715734 Completed 200305/26/2013 Not Available [facility] 3 02:01:31 Hammer toe 546454611 Active 2007 Not Available [facility] 0 11:09:14 Vitreous degenera tion 51128773 Active 2000 Not Available [facility] 0 11:09:14 Pure hypercho lesterol emia 283055617 Completed 200101/24/2011 Not Available [facility] 3 03:02:36 Parkinso n's disease 18566352 Active 2007 Not Available [facility] 0 11:09:15 Joint pain in ankle and foot Completed 200701/24/2011 Not Available [facility] 3 03:02:36 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 Procedures Surgical History Date Name Laterality Status Provider Name and Address Organization Details Recorded Time 09/22/19 Medicare Wellness Visit completed Naomi Reyes CMA [facility] 09/22/2023 08:42:25 08/26/19 Medicare Wellness Visit completed Dain Johnson MA [facility] 08/26/2022 14:53:52 05/09/20 21 Medicare Wellness Visit completed Cookie Hess [facility] 01/19/2021 10:41:20 05/09/20 21 prevention-cardiov ascular risk reduction counseling completed Cookie Hess [facility] 01/19/2021 10:41:21 05/09/20 21 prevention-annual alcohol misuse screening completed Cookie Hess [facility] 01/19/2021 10:41:21 05/09/20 21 Advanced Care Planning completed Dayton Bui NP [address] [place], [address], [facility] 05/13/2021 08:06:07 10/31/19 21 Suture/staple Removal completed Dayton Bui NP [address] [place], [address], [facility] 10/31/2020 20:05:09 01/12/20 20 Medicare Wellness Visit completed Declan Hernandez [facility] 01/12/2020 15:34:07 01/12/20 20 prevention-cardiov ascular risk reduction counseling completed Declan Hernandez [facility] 01/12/2020 15:34:07 01/12/20 20 prevention-annual alcohol misuse screening completed Declan Hernandez [facility] 01/12/2020 15:34:07 12/30/19 19 Medicare Wellness Visit completed Dede Orellana [facility] 12/29/2018 14:07:31 10/09/19 19 Medicare Wellness Visit completed Rosette Murrell MA [facility] 10/08/2018 15:16:12 08/29/19 18 Medicare Wellness Visit completed Rosette Murrell MA [facility] 08/29/2017 14:08:13 03/14/20 15 Medicare Wellness Visit completed Rosemarie Mcdonald LPN [facility] 03/14/2015 14:33:52 03/08/20 14 Medicare Wellness Visit completed Rosemarie Mcdonald LPN [facility] 03/08/2014 13:33:34 09/22/19 13 Medicare Wellness Visit completed Rosemarie Mcdonald LPN [facility] 09/21/2012 14:09:41 09/06/19 12 Medicare Wellness Visit completed Rosemarie LENIN Mcdonald [facility] 09/06/2011 14:16:18 01/25/20 11 Corticosteroid Injection completed Jaxon Morelos MD [address] [place], [address], [facility] 01/24/2011 12:58:13 11/26/19 09 Treatment and Advice completed Anmol Burnette, PT [address] [place], [address], [facility] 11/25/2008 17:03:52 11/19/19 09 Treatment and Advice completed Anmol Burnette, PT [address] [place], [address], [facility] 11/18/2008 12:20:17 11/11/19 09 Treatment and Advice completed Anmol Burnette, PT [address] [place], [address], [facility] 11/10/2008 15:34:15 10/29/19 09 Treatment and Advice completed Anmol Burnette, PT [address] [place], [address], [facility] 10/28/2008 13:36:18 10/19/19 04 completed Jaxon Morelos MD [address] [place], [address], [facility] 09/21/2012 14:38:36 deep brain stimulation completed Dayton Bui NP [address] [place], [address], [facility] 09/24/2023 08:36:38 Imaging Results Imaging Date Name Status LastModified by Organiz ation Details LastModified Time 04/21/2024 US, bladder completed [facility] (Imaging) [address], [place], [id number], 07/05/2024 09:35:39 Procedure Notes None recorded. Medical Equipment None Reported. Allergies No known drug allergies Medications Name Sig Start Date Stop Date Status Note LastModified by Organization Details LastModified Time amantadin e HCl 100 mg tablet Take 1 tablet twice a day by oral route. active Not Available Not Available No t Available amoxicill in 500 mg capsule Take 1 capsule 3 times a day by oral route for 10 days. 12/16 completed Not Available Not Available Not Available donepezil 5 mg tablet TAKE 1 TABLET BY MOUTH EVERY DAY active Not Available Not Available No t Available citalopra m 40 mg tablet TAKE 1 TABLET BY MOUTH EVERY DAY active Not Available Not Available No t Available citalopra m 10 mg tablet TAKE 1 TABLET BY MOUTH EVERY DAY 08/29 completed Not Available Not Available Not Available carbidopa ER 50 mg-levodo pa 200 mg tablet,ex tended release TAKE 1 TABLET BY MOUTH EVERYDAY AT BEDTIME active Not Available Not Available No t Available ciproflox acin 250 mg tablet TAKE ONE TABLET BY MOUTH EVERY 12 HOURS FOR 5 DAYS 08/12 completed Not Available Not Available Not Available sulfameth oxazole 800 mg-trimet hoprim 160 mg tablet 10/08 completed Not Available Not Available Not Available amantadin e HCl 100 mg capsule TAKE 1 CAPSULE BY MOUTH TWICE A DAY active Not Available Not Available No t Available citalopra m 20 mg tablet one daily 06/08 completed Not Available Not Available Not Available prednisol one acetate 1 % eye drops,bronson pension 08/29 completed Not Available Not Available Not Available ropinirol e 0.25 mg tablet 2008 active Taking a total of 2 tabs tid. Not Available Not Available Not Available baclofen 10 mg tablet active 1 tab at hs Not Available Not Available Not Available dexametha sone 0.75 mg tablet TAKE 3 TABLETS EVERY MORNING FOR 5 DAYS 12/16 completed Not Available Not Available Not Available betametha sone dipropion ate 0.05 % topical cream APPLY A THIN LAYER TO THE AFFECTED AREA(S) BY TOPICAL ROUTE ONCE DAILY 10/08 completed prn Not Available Not Available Not Available hydrochlo rothiazid e 25 mg tablet TAKE 1 TABLET BY MOUTH EVERY DAY 04/03 completed Not Available Not Available Not Available carbidopa 25 mg-levodo pa 100 mg tablet TAKE 1 TABLET ORALLY 5 TIMES A DAY FOR 90 DAYS active Not Available Not Available No t Available Percocet 5 mg-325 mg tablet 1 OR 2 PO Q6H PRN LEG PAIN AT NIGHT 12/25 completed Not Available Not Available Not Available fluticaso ne propionat e 50 mcg/actua tion nasal spray,bronson pension USE 1 SPRAY INTO EACH NOSTRIL 2 TIMES A DAY active Not Available Not Available No t Available oxycodone 5 mg tablet 10/08 completed Not Available Not Available Not Available neomycin 3.5 mg/g-poly myxin B 10,000 unit/g-de xameth 0.1 % eye oint APPLY 1 A SMALL AMOUNT INTO BOTH EYES THREE TIMES A DAY active Not Available Not Available No t Available Flovent HFA 110 mcg/actua tion aerosol inhaler INHALE 1 PUFF TWICE A DAY BY INHALATI ON ROUTE. 09/21 completed Not Available Not Available Not Available ibuprofen 200 mg taking up to 8 tablets per day prn active Not Available Not Available No t Available Stool Softener active Not Available Not Available Not Available Vitamin D3 10 mcg (400 unit) capsule active stopped for the summer Not Available Not Available Not Available Azilect 1 mg tablet 08/29 completed Not Available Not Available Not Available Arnuity Ellipta 100 mcg/actua tion powder for inhalatio n INHALE 1 PUFF DAILY active Not using 08/14/24 AAS Not Available Not Available Not Available Nuplazid 34 mg capsule One tab daily active Not Available Not Available No t Available Fluad 65yr up(PF)45 mcg(15 mcgx3)/0. 5 mL intramusc ular syringe VACCINAT ION ADMINIST ERED BY PHARMACI ST 06/08 completed Not Available Not Available Not Available Paxlovid 300 mg (150 mg x 2)-100 mg tablets in a dose pack ALL THREE TABLETS SHOULD BE TAKEN TOGETHER TWICE A DAY FOR 5 DAYS active Not Available Not Available No t Available Vitals Date Recorded Body height Systolic blood pressure Diastolic blood pressure Provider Name and Address Organization Details Last Updated DateTime 09/22/2023 163.83 cm 126 mm[Hg] 74 mm[Hg] [facility] 12:08:49 Date Recorded Body height Heart rate Oxygen saturation Oxygen saturation in Arterial blood by Pulse oximetry Systolic blood pressure Diastolic blood pressure Provider Name and Address Organization Details Last Updated DateTime 4 163.83 cm 71 /min 96 % 96 % 132 mm[Hg] 70 mm[Hg] [facility] 4 16:20:16 Date Recorded Body height Heart rate Body temperature Systolic blood pressure Diastolic blood pressure Provider Name and Address Organization Details Last Updated DateTime 04/03/2024 163.83 cm 76 /min 98 [degF] 152 mm[Hg] 86 mm[Hg] [facility] 4 10:15:08 Date Recorded Body height Heart rate Oxygen saturation Oxygen saturation in Arterial blood by Pulse oximetry Systolic blood pressure Diastolic blood pressure Provider Name and Address Organization Details Last Updated DateTime 163.83 cm 71 /min 94 % 94 % 128 mm[Hg] 88 mm[Hg] JAMIE Jones [facility] 4 13:35:53 Date Recorded Body height Body temperature Provider N kellee and Address Organization Details Last Updated DateTime 08/14/2024 163.83 cm 98.1 [degF] [facility] 08/14/2024 11:00:45 Social History Question Answer Notes LastModified by Organizat ion Details LastModified Time Tobacco Smoking Status Former Smoker RARE CIGARETTE, LAST ONE 3 YRS AGO. 4MV Rosemarie Khan JAMIE [facility] 05/03/2024 13:34:42 Do You Have An Advance Directive? No Given Forms To Complete And Return. [email or web address] Information not available 12/21/2008 What Is Your Level Of Alcohol Consumption? Occasional 2 Times A Week . 06/08/19 JI, 09/22/23 [email or web address] Information not available 09/22/2023 What Is Your Level Of Caffeine Consumption? Moderate 1 A Day 08/26/22tt Information not available 08/26/2022 What Type Of Diet Are You Following? REGULAR Information not available 08/26/2022 Do You Or Have You Ever Used E-cigarettes Or Vape? 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 No Information not available 08/26/2022 When Did You Quit Smoking? 16+yearssince lastcigarette Information not available 08/26/2022 Do You Use Insect Repellent Routinely? No Information not available 08/26/2022 Live Alone Or With Others? With Others [email or web address] Information not available 05/23/2011 Patient Has Health Care Proxy Signed And In Chart Yes Destiny POWER OF FINANCIAL PLANNING ADVISOR [email or web address] Information not available 01/08/2023 MOLST Form Signed And In Chart 04/07/2014 [email or web address] Information not available 03/14/2015 CCM Consent Discussion 08/29/2017 [email or web address] Information not available 08/29/2017 Marital Status [email or web address] Informatio n not available 04/07/2014 Mosquito Repellent Used Routinely Yes Information not available 06/08/2019 What Was The Date Of Your Most Recent Tobacco Screening? 08/14/2024 02/18/22MV, 09/22/23mhMV [email or web address] Information not available 08/14/2024 How Many Children Do You Have? 2 [email or web address] Information not available 05/23/2011 Do You Use Your Seat Belt Or Car Seat Routinely? Yes Information not available 08/26/2022 Seat Belts Used Routinely Yes Information not available 06/08/2019 Smoke Alarm In Home Yes Information not available 06/08/2019 Do You Have Smoke And Carbon Monoxide Detectors In Your Home? Yes Information not available 08/26/2022 At What Age Did You Start Smoking Tobacco? 17 Information not available 08/26/2022 Are You Passively Exposed To Smoke? No Information not available 08/26/2022 Do You Or Have You Ever Used Smokeless Tobacco? Never Used Smokeless Tobacco Information not available 10/30/2020 How Much Tobacco Do You Smoke? No 2packs A Day Until She Quit Have Not Smoked In 3 Or More Yrs 08/26/22tt Information not available 08/26/2022 General Stress Level Low Information not available 06/08/2019 Do You Use Any Illicit Or Recreational Drugs? No Information not available 08/26/2022 Do You Use Sunscreen Routinely? No Information not available 08/26/2022 How Many Years Have You Smoked Tobacco? 0 Information not available 10/30/2020 Do You Or Have You Ever Used Any Other Forms Of Tobacco Or Nicotine? No Information not available 08/26/2022 Sex: Female Functional Status Question Answer Note LastModified by Organization D etails LastModified Time What is your exercise level? None Information not available 08/26/2022 Mental Status None recorded. Family History Nothing Reported Notes:other (enter) : Ischem ic none. Hypertension mother, maternal grandmother. Diabetes none. Cancer sister lymphoma,SISTER BREAST CA ,DAUGHTER BREAST. Alzheimer's mother. Accidental father at 36. Medical History No medical history recorded. Gynecological HistoryNo gynecological history recorded. Obstetrics History GPAL:G 0 P 0 0 0 0 Immunizations Vaccine Type Date Status Note Provider Nam e and Address Organization Details Recorded Time Influenza, split virus, trivalent, preservative 1 completed Not Available [facility] 07/24/2019 02:29:55 pneumococcal polysaccharide PPV23 5 completed Not Available [facility] 05/22/2011 05:21:07 influenza, unspecified formulation 5 completed Not Available [facility] 05/22/2011 05:21:29 influenza, unspecified formulation 6 completed Not Available [facility] 05/22/2011 05:21:29 zoster live 7 completed Not Available [facility] 05/22/2011 05:21:55 influenza, unspecified formulation 7 completed Not Available [facility] 05/22/2011 05:21:55 influenza, unspecified formulation 8 completed Not Available [facility] 05/22/2011 05:22:13 Influenza, split virus, trivalent, preservative 2 completed Not Available [facility] 07/24/2019 02:18:34 Td(adult) unspecified formulation 5 completed Not Available [facility] 05/22/2011 05:22:52 Influenza, split virus, quadrivalent, PF 3 completed Not Available [facility] 07/24/2019 02:18:55 Influenza, high-dose, trivalent, PF 4 completed Not Available [facility] 07/24/2019 02:28:18 Influenza, high-dose, trivalent, PF 5 completed Not Available [facility] 07/24/2019 02:33:06 Pneumococcal conjugate PCV 13 5 completed Not Available [facility] 07/24/2019 02:32:59 Td (adult), 2 Lf tetanus toxoid, preservative free, adsorbed 8 completed Not Available [facility] 07/24/2019 02:22:32 Influenza, split virus, quadrivalent, preservative 8 completed Not Available [facility] 08/07/2019 02:10:43 Influenza, high-dose, trivalent, PF 9 completed Not Available [facility] 08/07/2019 02:10:44 Influenza, split virus, quadrivalent, preservative 0 [facility] 11:51:13 Influenza, split virus, trivalent, preservative 0 completed Not Available [facility] 07/24/2019 02:17:47 COVID-19, mRNA, LNP-S, PF, 30 mcg/0.3 mL dose 1 [facility] [facility]30[facility] 13:35:55 COVID-19, mRNA, LNP-S, PF, 30 mcg/0.3 mL dose 1 [facility] [facility] 10/30/2020 13:36:07 Influenza, high-dose, quadrivalent, PF 3 completed Dayton Bui, CHANGE MANAGEMENT MANAGER [address] [place] [address], [id number], [facility] 04/15/2023 17:16:57 COVID-19, mRNA, LNP-S, PF, 30 mcg/0.3 mL dose 1 completed [facility] 05/09/2021 11:10:36 SARS-COV-2 (COVID-19) vaccine, UNSPECIFIED 3 completed [facility] 04/15/2023 15:12:09 Respiratory syncytial virus (RSV) MAB, unspecified 3 completed Alexno TyCLEOPATRA null, [facility] 04/15/2023 15:12:32 Influenza, high-dose, trivalent, PF 4 completed JAMIE Jones, [facility] 05/03/2024 13:35:12 COVID-19, mRNA, LNP-S, PF, rosa-sucrose, 30 mcg/0.3 mL 4 completed JAMIE Jones, [facility] 05/03/2024 13:35:28 Past Encounters Encounter ID Performer Location Encounter Start Date Encounter Closed Date Diagnosis/Indication Diagnosis SNOMED-CT Code Diagnosis ICD10 Code Diagnosis Note [id number] Angie Kang MD FP, [facility], OFFICE [address] [place] [address] 06/17/2000 14:00:00 07/27/2008 02:02:29 [id number] Smooth Craig, [facility], [address] [place] [address] 10/15/2000 09:55:00 07/27/2008 02:02:29 [id number] Janak Valenzuela III, MD , [facility], OFFICE [address] [place] [address] 04/21/2001 16:30:00 07/27/2008 02:02:29 [id number] Jaxon Morelos MD , [facility], OFFICE [address] [place] [address] 05/14/2002 07:50:10 07/27/2008 02:02:[id number] [facility] - [address] [place] [address] 06/04/2002 07:47:05 07/27/2008 02:02:[id number] [facility] MAMMOGRAPH Y [facility]ologi st Radiology , [address] [place] [address] 07/06/2002 07:47:42 07/27/2008 02:02:[id number] [facility] - [facility] [address] [facility] [place] [address] 09/10/2002 14:28:17 07/27/2008 02:02:29 [id number] Marisa BRUMFIELD , [facility], OFFICE [address] [place] [address] 01/25/2003 07:49:56 07/27/2008 02:02:29 [id number] Jaxon Morelos MD , [facility], OFFICE [address] [place] [address] 02/14/2003 07:57:35 07/27/2008 02:02:29 [id number] Salazar Saucedo MD Radiology , [address] [place] [address] 02/14/2003 08:53:08 07/27/2008 02:02:29 [id number] Florentino Wallace PA-C , [facility], OFFICE [address] [place] [address] 09/21/2003 13:35:38 09/22/2003 08:59:43 [id number] Jaxon Morelos MD , [facility], OFFICE [address] [place] [address] 09/22/2003 11:18:32 09/23/2003 09:19:[id number] [facility] RADIOLOGY Technologi st Radiology , [address] [place] [address] 09/22/2003 12:12:47 09/22/2003 13:00:[id number] [facility] - [address] [place] [address] 09/30/2003 07:28:16 09/30/2003 12:15:[id number] [facility] MAMMOGRAPH Y Technologi st Radiology , [address] [place] [address] 10/05/2003 13:21:12 10/06/2003 13:33:11 [id number] [facility], ZION MERCADO MD [facility], [address] [place] [address] 10/19/2003 09:09:44 10/20/2003 07:42:20 [id number] Jaxon Morelos MD FP, [facility], OFFICE [address] [place] [address] [place] [address] 10/24/2003 08:10:02 10/25/2003 08:18:15 [id number] Carlos Canales FP, [facility], OFFICE [address] [place] [address] 12/30/2003 08:41:17 01/02/2004 10:08:22 [id number] Jaxon Morelos MD , [facility], OFFICE [address] [place] [address] 06/25/2004 16:24:31 06/26/2004 09:47:43 [id number] Jaxon Morelos MD , [facility], OFFICE [address] [place] [address] 09/25/2004 08:28:56 09/26/2004 08:38:[id number] [facility] LAB LAB - [address] [place] [address] 09/26/2004 07:29:50 09/26/2004 07:52:02 [id number] Anmol Rios i, PT Physical Therapy, [address] [place] [address] 09/27/2004 08:16:49 09/27/2004 08:46:55 [id number] Anmol Rios i, PT Physical Therapy, [address] [place] [address] 1 10/03/2004 08:43:06 10/03/2004 08:53:22 [id number] Anmol Rios i, PT Physical Therapy, [address] [place] [address] 1 10/10/2004 08:33:38 10/10/2004 08:35:03 [id number] Anmol Rios i, PT Physical Therapy, [address] [place] [address] 1 10/17/2004 08:19:33 10/17/2004 08:28:17 [id number] Anmol Rios i, PT Physical Therapy, [address] [place] [address] 1 10/25/2004 07:59:56 10/25/2004 08:00:[id number] [facility] MAMMOGRAPH Y Technologi st Radiology , [address] [place] [address] 11/06/2004 07:59:59 11/06/2004 16:01:[id number] [facility] - [address] [place] [address] 11/15/2004 11:26:18 11/15/2004 11:26:[id number] [facility] FLU CLINIC , [facility], OFFICE [address] [place] [address] 06/06/2005 14:25:00 07/27/2008 02:02:29 [id number] Jaxon Morelos MD FP, [facility], OFFICE [address] [place] [address] 06/18/2005 08:51:36 06/19/2005 08:47:22 [id number] Jaxon Morelos MD FP, [facility], OFFICE [address] [place] [address] 11/20/2005 11:45:03 11/21/2005 08:52:[id number] [facility] LAB - [facility] [address] [place] [address] 11/21/2005 07:02:12 11/21/2005 08:02:[id number] [facility] MAMMOGRAPH Y Technologi st Radiology , [facility] [address] [place] [address] 12/12/2005 14:03:42 12/13/2005 08:41:[id number] [facility] FLU CLINIC FP, [facility], OFFICE [address] [place] [address] 06/23/2006 13:40:00 07/27/2008 02:02:29 [id number] Jaxon Morelos MD FP, [facility], OFFICE [address] [place] [address] 12/18/2006 08:31:20 12/19/2006 07:59:[id number] [facility] MAMMOGRAPH Y Technologi st Radiology , [facility] [address] [place] [address] 12/18/2006 09:24:21 12/18/2006 12:47:[id number] [facility] LAB LAB - [facility] [address] [place] [address] 01/26/2007 08:28:16 01/26/2007 08:28:26 [id number] Jaxon Morelos MD FP, [facility], OFFICE [address] [place] [address] 02/09/2007 09:24:35 02/10/2007 08:09:[id number] [facility] RADIOLOGY Technologi st Radiology , [facility] [address] [place] [address] 02/18/2007 16:53:31 02/19/2007 07:04:43 [id number] Angie Kang MD FP, [facility], OFFICE [address] [place] [address] 02/18/2007 15:16:22 02/19/2007 10:47:18 [id number] Jaxon Morelos MD FP, [facility], OFFICE [address] [place] [address] 1 02/25/2007 08:59:08 02/26/2007 07:54:[id number] [facility] FLU CLINIC FP, [facility], OFFICE [address] [place] [address] 05/07/2007 11:35:00 07/27/2008 02:02:29 [id number] Jaxon Morelos MD , [facility], OFFICE [address] [place] [address] 05/06/2008 10:47:52 07/27/2008 02:02:29 [id number] BR[facility], [address] [place] [address] 05/30/2008 10:45:50 05/30/2008 17:09:[id number] [facility] MAMMOGRAPH Y Technologi st Radiology , [address] [place] [address] 05/26/2008 10:45:18 05/27/2008 06:59:27 [id number] Anmol Rios i, PT Physical Therapy, [address] [place] [address] 07/05/2008 10:25:16 07/05/2008 10:26:11 [id number] Anmol Rios i, PT Physical Therapy, [address] [place] [address] 1 07/12/2008 11:33:25 07/12/2008 11:33:29 [id number] Anmol Rios i, PT Physical Therapy, [address] [place] [address] 07/15/2008 10:35:48 07/15/2008 10:35:51 [id number] Anmol Rios i, PT Physical Therapy, [address] [place] [address] 07/25/2008 08:28:18 07/25/2008 08:28:22 [id number] Anmol Rios i, PT Physical Therapy, [address] [place] [address] 1 07/26/2008 10:26:42 07/26/2008 10:26:48 [id number] Anmol Rios i, PT Physical Therapy, [address] [place] [address] 07/29/2008 10:37:49 07/29/2008 10:37:53 [id number] Anmol Rios i, PT Physical Therapy, [facility] [place] [address] 1 08/02/2008 10:55:30 08/02/2008 10:55:34 [id number] Anmol Rios i, PT Physical Therapy, [facility] [place] [address] 1 08/05/2008 10:27:48 08/05/2008 10:28:02 [id number] Anmol Rios i, PT Physical Therapy, [facility] [place] [address] 08/05/2008 10:25:17 08/05/2008 10:25:51 [id number] Anmol Rios i, PT Physical Therapy, [facility] [place] [address] 08/12/2008 10:20:53 08/12/2008 10:21:25 [id number] Anmol Rios i, PT Physical Therapy, [facility] [place] [address] 08/16/2008 11:45:21 08/16/2008 11:45:25 [id number] Anmol Rios i, PT Physical Therapy, [facility] [place] [address] 1 08/19/2008 11:51:44 08/19/2008 11:51:50 [id number] Anmol Rios i, PT Physical Therapy, [facility] [place] [address] 1 08/23/2008 11:05:26 08/23/2008 11:05:31 [id number] Anmol Rios i, PT Physical Therapy, [facility] [place] [address] 1 08/26/2008 10:21:09 08/26/2008 10:21:17 [id number] Anmol Rios i, PT Physical Therapy, [facility] [place] [address] 08/30/2008 13:01:38 08/30/2008 13:01:47 [id number] Anmol Rios i, PT Physical Therapy, [facility] [place] [address] 1 09/02/2008 10:22:34 09/02/2008 10:22:39 [id number] Anmol Rios i, PT Physical Therapy, [facility] [place] [address] 1 09/06/2008 11:13:17 09/06/2008 11:13:22 [id number] Anmol Rios i, PT Physical Therapy, [facility] [place] [address] 1 09/13/2008 10:28:20 09/13/2008 10:28:26 [id number] Anmol Rios i, PT Physical Therapy, [facility] [place] [address] 09/16/2008 10:14:37 09/16/2008 10:14:42 [id number] Anmol Rios i, PT Physical Therapy, [facility] [place] [place] [address] 1 09/20/2008 11:20:57 09/20/2008 11:21:01 [id number] Anmol Rios i, PT Physical Therapy, [facility] [place] [address] 1 09/23/2008 11:56:23 09/23/2008 11:56:29 [id number] Anmol Rios i, PT Physical Therapy, [facility] [place] [address] 1 09/27/2008 10:25:30 09/27/2008 10:25:33 [id number] Anmol Rios i, PT Physical Therapy, [facility] [place] [address] 1 09/30/2008 10:41:49 09/30/2008 10:41:53 [id number] Anmol Rios i, PT Physical Therapy, [facility] [place] [address] 1 10/04/2008 10:38:37 10/04/2008 10:38:40 [id number] Anmol Rios i, PT Physical Therapy, [facility] [place] [address] 1 10/14/2008 13:22:55 10/17/2008 10:13:42 [id number] Anmol Rios i, PT Physical Therapy, [facility] [place] [address] 1 10/21/2008 10:00:57 10/21/2008 14:23:21 [id number] Anmol Rios i, PT Physical Therapy, [facility] [place] [address] 1 10/28/2008 13:20:39 10/28/2008 13:48:46 [id number] Anmol Rios i, PT Physical Therapy, [facility] [address] 1 11/04/2008 10:33:38 11/04/2008 13:19:50 [id number] Anmol Rios i, PT Physical Therapy, [facility] [place] [address] 1 11/10/2008 14:42:53 11/11/2008 08:39:57 [id number] Anmol Rios i, PT Physical Therapy, [facility] [place] [address] 1 11/18/2008 10:22:18 11/21/2008 13:53:31 [id number] Anmol Rios i, PT Physical Therapy, [facility] [place] [address] 1 11/25/2008 12:51:27 11/30/2008 08:13:12 [id number] Jaxon Morelos MD , [facility], [place] [address] 1 12/21/2008 09:51:15 12/22/2008 10:14:47 [id number] Anmol Rios i, PT Physical Therapy, [facility] [place] [address] 1 05/09/2009 14:21:55 05/11/2009 13:20:01 [id number] Anmol Rios i, PT Physical Therapy, [facility] [place] [address] 1 05/19/2009 10:23:04 05/22/2009 10:19:56 [id number] Anmol Rios i, PT Physical Therapy, [facility] [place] [address] 1 05/25/2009 13:09:23 05/26/2009 10:47:[id number] [facility] MAMMOGRAPH Y Technologi st Radiology , [facility] [place] [address] 1 05/29/2009 13:23:42 05/30/2009 13:31:59 [id number] Anmol Rios i, PT Physical Therapy, [facility] [place] [address] 1 06/08/2009 12:55:48 06/09/2009 11:49:03 [id number] Anmol Rios i, PT Physical Therapy, [facility] [address] 1 06/15/2009 11:20:23 06/16/2009 09:23:33 [id number] MD ESE Winslow, [facility], OFFICE [address] [place] [address] 1 06/16/2009 10:47:52 06/16/2009 13:42:33 [id number] Anmol Rios i, PT Physical Therapy, [address] [place] [address] 1 06/21/2009 12:32:39 06/23/2009 09:18:42 [id number] Anmol Rios i, PT Physical Therapy, [facility] [place] [address] 1 07/05/2009 11:07:31 07/05/2009 16:58:53 [id number] Anmol Rios i, PT Physical Therapy, [facility] [address] 1 07/13/2009 10:58:30 07/14/2009 11:41:[id number] [facility] RADIOLOGY Technologi st Radiology , [facility] [place] [address] 1 07/14/2009 13:14:24 07/17/2009 13:57:38 [id number] Anmol Rios i, PT Physical Therapy, [facility] [address] 1 07/20/2009 10:52:34 07/20/2009 16:54:14 [id number] Jaxon Morelos MD , [facility], OFFICE [address] [place] [address] 1 07/27/2009 12:11:45 07/27/2009 13:28:37 [id number] Anmol Rios i, PT Physical Therapy, [facility] [place] [address] 1 07/27/2009 13:08:11 07/28/2009 09:09:41 [id number] Anmol Rios i, PT Physical Therapy, [facility] [place] [address] 1 08/04/2009 12:40:05 08/07/2009 09:12:[id number] [facility] BONE DENSITY Radiology , [facility] [place] [address] 1 08/11/2009 10:45:44 08/14/2009 11:15:47 [id number] Anmol Rios i, PT Physical Therapy, [address] [place] [address] 1 08/11/2009 11:18:14 08/14/2009 10:03:24 [id number] Jaxon Morelos MD , [facility], [address] [place] [address] 1 08/22/2009 12:00:13 08/22/2009 14:23:59 [id number] Jaxon Morelos MD , [facility], OFFICE [address] [place] [address] 1 12/25/2009 10:34:44 12/25/2009 11:57:59 [id number] Shahram Garces , [facility], OFFICE [address] [place] [address] 1 04/09/2010 16:48:05 04/09/2010 17:31:[id number] [facility] FLU CLINIC , [facility], OFFICE [address] [place] [address] 1 04/11/2010 11:05:44 04/12/2010 09:24:36 [id number] Jaxon Morelos MD , [facility], [address] [place] [address] 1 06/21/2010 14:24:34 06/22/2010 09:34:[id number] [facility] MAMMOGRAPH Y Technologi st Radiology , [address] [place] [address] 1 07/04/2010 12:50:12 07/05/2010 13:21:11 [id number] Jaxon Morelos MD , [facility], [address] [place] [address] 1 01/03/2011 11:46:53 01/03/2011 12:54:[id number] [facility] RADIOLOGY Technologi st Radiology , [address] [place] [address] 1 01/09/2011 11:02:46 01/11/2011 09:55:45 [id number] Anmol Rios i, PT Physical Therapy, [address] [place] [address] 1 01/18/2011 08:50:58 01/18/2011 13:38:27 [id number] Anmol Rios i, PT Physical Therapy, [address] [place] [address] 1 01/23/2011 10:17:57 01/24/2011 09:45:10 [id number] Jaxon Morelos MD , [facility], [place] [address] 1 01/24/2011 11:19:10 01/24/2011 12:06:37 [id number] Anmol Rios i, PT Physical Therapy, [facility] [address] 1 01/25/2011 11:14:11 01/25/2011 16:43:07 [id number] Anmol Rios i, PT Physical Therapy, [facility] [address] 1 01/29/2011 14:24:27 01/29/2011 17:01:45 [id number] Anmol Rios i, PT Physical Therapy, [facility] [address] 1 01/31/2011 11:20:29 01/31/2011 16:11:41 [id number] Anmol Rios i, PT Physical Therapy, [facility] [address] 1 02/14/2011 10:55:07 02/15/2011 12:13:27 [id number] Anmol Rios i, PT Physical Therapy, [facility] [address] 1 02/21/2011 10:25:47 02/25/2011 13:10:57 [id number] Anmol Rios i, PT Physical Therapy, [facility] [address] 1 02/27/2011 10:47:53 02/28/2011 10:23:02 [id number] Anmol Rios i, PT Physical Therapy, [facility] [place] [address] 1 03/14/2011 10:17:47 03/15/2011 12:32:06 [id number] Anmol Rios i, PT Physical Therapy, [facility] [place] [address] 1 03/21/2011 10:17:45 03/22/2011 10:50:24 [id number] Anmol Rios i, PT Physical Therapy, [facility] [place] [address] 1 04/10/2011 09:57:20 04/11/2011 11:05:21 [id number] Anmol Rios i, PT Physical Therapy, [facility] [address] [place] [address] 1 04/18/2011 10:23:51 04/19/2011 10:39:[id number] [facility] FLU CLINIC X , [facility], OFFICE [address] [place] [address] 1 04/22/2011 11:45:55 04/22/2011 12:40:18 [id number] Jaxon Morelos MD , [facility], OFFICE [address] [place] [address] [place] [address] 1 09/06/2011 14:09:06 09/06/2011 15:08:08 [id number] Jaxon Morelos MD , [facility] OFFICE [address] [place] [address] [place] [address] 1 03/17/2012 11:34:11 03/17/2012 12:21:23 [id number] Jaxon Morelos MD , [address] [place] [address] 1 09/21/2012 14:06:43 09/21/2012 15:05:08 [id number] Yonathan Rubio PA-C , [facility] OFFICE [address] [place] [address] [place] [address] 1 05/12/2013 15:23:22 05/12/2013 15:29:40 Influenza vaccine needed 8602960505 [id number] Jaxon Morelos MD , [facility], [address] [place] [address] 1 03/08/2014 13:17:16 03/08/2014 14:13:16 Adult health examination 835817310 see Risk Assessment and Lifestyle Change Counseling section above Counseling [id number] Parkinson's disease 06669584 [id number] Jaxon Morelos MD , [facility], OFFICE [address] [place] [address] [place] [address] 1 04/07/2014 13:09:54 04/08/2014 08:22:03 Medicolegal examination 635988933 [id number] MD ESE Winslow, [address] [place] [address] 1 05/25/2014 11:15:56 05/25/2014 11:28:46 Influenza vaccine needed 3399904835 592 [id number] MD ESE Winslow, [facility] OFFICE [address] [place] [address] [place] [address] 1 03/14/2015 13:49:46 03/14/2015 15:21:49 Influenza vaccine needed 2096991684 106 Active or passive immunization 349273629 Adult heal th examination 693574026 see Risk Assessment and Lifestyle Change Counseling section above Counseling 990281447 Mixed hyperlipidemia 079384192 Cholestero l is not at goal Continue to work on diet and exercise as discussed Parkinson's disease 75991826 Single rayray or depressive episode, moderate 738061551 [id number] Jaxon Morelos MD , [facility], OFFICE [address] [place] [address] 1 08/29/2017 13:59:59 08/29/2017 15:34:13 Adult health examination 182669606 Z00.00 see Risk Assessment and Lifestyle Change Counseling section above Counseling 720255502 Z71 .9 Mixed hyperlipidemia 267 141673 E78.2 Single rayray or depressive episode, moderate 544175931 F32.1 Parkinson's disease 4904 9000 G20 Active or passive immunization 543153567 Z23 [id number] Shahram Garces MD , [facility], OFFICE [address] [place] [address] 1 09/25/2017 16:33:22 09/25/2017 17:08:55 Eczema 05198874 L30.9 [id number] Jaxon Morelos MD , [facility], OFFICE [address] [place] [address] 1 12/16/2017 14:51:26 12/16/2017 15:33:48 Parkinson's disease 58207282 G20 [id number] Jaxon Morelos MD , [facility], OFFICE [address] [place] [address] 1 03/13/2018 14:57:25 03/13/2018 15:56:07 Parkinson's disease 99936091 G20 [id number] Art Whalen MD , 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, OFFICE [address] [place] [address] 1 10/08/2018 15:05:32 10/08/2018 15:50:49 Abnormal involuntary movement 771335471 R25.9 Parkinson's disease 4904 9000 G20 [id number] MD ESE Winslow, [facility], OFFICE [address] [place] [address] 1 12/29/2018 13:45:17 12/29/2018 15:03:41 Adult health examination 917739749 Z00.00 see Risk Assessment and Lifestyle Change Counseling section above Counseling 453159512 Z71 .9 Depression screening 171 890549 Z13.89 depression screening tool administer ed, entered into emr, scored and discussed, time greater than 7.5 minutes Mixed hyperlipidemia 267 841701 E78.2 Parkinson's disease 4904 9000 G20 Depressive disorder 3548 9007 F32.0 [id number] Jaxon Morelos MD , [facility], OFFICE [address] [place] [address] 1 06/08/2019 13:28:25 06/08/2019 14:30:24 Mixed hyperlipidemia 178463046 E78.2 Parkinson's disease 4904 9000 G20 Major depr essive disorder 760519766 F32.9 [id number] Karmen MULLIGAN, [facility], OFFICE [address] [place] [address] 1 01/12/2020 15:39:41 01/12/2020 16:32:49 Depressive disorder 14916894 F32.0 Adult heal th examination 128247889 Z00.00 Counseling 711741551 Z71 .9 including cardiovasc ular risk reduction counseling Depression screening 171 443610 Z13.89 depression screening tool administer ed, entered into emr, scored and discussed, time greater than 7.5 minutes Screening for alcohol abuse 330450673 Z13.39 Mixed hyperlipidemia 267 907831 E78.2 Toenail thickened 896067 000 R23.8 [id number] Karmne MULLIGAN, [facility], OFFICE [address] [place] [address] 1 10/30/2020 13:29:01 10/30/2020 13:57:17 Laceration of head 969956277 S01.91XD seen in ED 10/22/20 for laceration to head s/p fall, tetanus shot given, 2 alice placed Alice removed in office. No signs of infection Parkinson's disease 4904 9000 G20 Fall on 10/22/20 (see above). Has life alert button Followed by Dr Suárez uses walker and wheelchair Reports no acute changes to status -- continue neuro follow up -- continue amantadine and carbidopa- levodopa [id number] Art Whalen MD , [facility], OFFICE [address] [place], [place] [address] 1 05/09/2021 10:59:39 05/14/2021 06:46:10 Adult health examination 134979973 Z00.00 Poor health, patient has Parkinsons and worsening depression , is tired of living and is ready to go.She lives alone but has helper a few hours in the morning, [facility] year as a slog Reviewed MOLST, DNR DNI, no interventi onsWill [facility] and provided patient info to call [facility] schedule appt with Tyler Martínez, , to help her access online resources. She loves learning, and this would improve quality of life, she has difficulty with her vision, hand dexterity, and memory so needs help with this. Counseling 006683989 Z71 .9 including cardiovasc ular risk reduction counseling Depression screening 171 698591 Z13.31 depression screening tool administer ed, entered into emr, scored and discussed, time greater than 7.5 minutes Screening for alcohol abuse 955475534 Z13.39 Advance di rective discussed with patient 206403050 Z71.89 Mixed hyperlipidemia 267 439561 E78.2 no further treatment Depressive disorder 5668 9007 F32.0 Worsening, not controlled , is ready to .-- referred to [facility]-- continue citalopram 40 daily Parkinson's disease 4904 9000 G20 Worsening - frequent falls, memor issues, depression , difficulty with hand dexterityF ollowed by Dr Suárez uses walker and wheelchair -- continue neuro follow up -- continue amantadine and carbidopa- levodopa-- referred to palliative care-- reviewed MOLST form [id number] Jennifer Pugh MD FP, [facility], [address] [place] [address] 10/30/2021 15:01:47 11/15/2021 16:38:52 COVID-19 515399961 U07.1 checked all meds for interactio ns; discussed covid care. given doses for ibuprofen and tylenol, mucinex for phlegmy cough she ahs trouble clearing Exposure t o SARS-CoV-2 808635428 Z20.577 [id number] [place] Madeline er, CHANGE MANAGEMENT MANAGER , [facility], OFFICE [address] [place] [address] 1 11/09/2021 13:07:35 11/09/2021 13:57:55 Mixed hyperlipidemia 190748367 E78.2 no further treatment COVID-19 676152513 U07.1 Very tired, is very slowly improving, no dyspneaTre ated with Paxlovid Parkinson's disease 4904 9000 G20 StableFoll owed by Dr Suárez uses walker and wheelchair -- continue amantadine and carbidopa- levodopa Moderate r ecurrent major depression 97626566 F33.1 SLightly improved compared to 6 months ago. Has some passive SI (thinks of not waking up). Has been socializin g more. Conitnue citalopram 40 dailyencou raged to continue to reach out to family and friendsfol low up if worsenignh as been connected with palliative care [id number] Najma Chirinos D.O. , [facility], OFFICE [address] [place] [address] 1 02/18/2022 13:19:50 02/18/2022 16:58:55 Recurrent major depressive episodes, moderate 554618510 F33.1 Doing well, socializin g more with group on her floor, playing gamesImpro vedcontinu e citalopram 40 daily Parkinson's disease 4904 9000 G20 Stable, says she is slowing downFollow ed by Dr Suárez, appt next month uses walker and wheelchair fell 3 weeks ok, hard to manipulate walker in her kitchen, it gets stuck.-- continue amantadine and carbidopa- levodopa COVID-19 333216753 U07.1 Recovered, back to pre-covid baseline Recurrent falls 98098841 2 R29.6 Fell in her kitchen - hard to maneuver her walker. unable to add bars in kitchen for stability. Looked online at other less bulky walker options, can consider one to stay in the kitchen. [id number] Art Whalen MD , [facility], OFFICE [address] [place] [address] 08/26/2022 15:23:15 08/27/2022 07:45:20 Adult health examination 313522057 Z00.00 Poor health, patient has Parkinsons and depression . Her daughter now lives with her.Review ed MOLST on file, DNR DNI, no interventi onsHer daughter will drop of health proxy form. Multiple falls, sometimes falls out of bed. Feels weakner-- will refer for home PT, VNA eval Depression screening 171 480262 Z13.31 depression screening tool administer ed Screening for alcohol abuse 541577470 Z13.39 Alcohol use screening tool administer ed Mixed hyperlipidemia 267 978534 E78.2 no further treatment Parkinson's disease 4904 9000 G20 Stable, says she is slowing downFollow ed by Dr Suárez, will request last note uses walker and wheelchair Reports word finding difficulty , unable to write or type, difficulty readingmul tiple falls -- continue amantadine and carbidopa- levodopa-- referred for PT Recurrent major depressive episodes, moderate 357724356 F33.1 Chroniccon tinue citalopram 40 dailyEncou raged to reach out to friends on her floor. Encouraged to try to do one thing per week, she did see some good movies recentlyFo llow up if worsening Sleep jaden kendall disturbance 96800974 G47.9 Sometimes sleeps well, other times hard to fall asleep or falls out of bed due to dreams.-- advised melatonin PRN, if worsening follow up Recurrent falls 75745171 2 R29.6 Secondary to parkinsons , referred for home PT Dyspnea on exertion 6084 5006 R06.09 Chronic, worsening. Has increased mucus production . Occurs with ambulation . Daughter reports wheezing. No LE edema or chest pressure reported. -- trial flovent, if not improving follow up in office for eval and labs (CBC, BNP, BMP) [id number] Karmen West . MD MULLIGAN, [facility], OFF[address] [place] [address] 1 12/24/2022 15:26:57 01/06/2023 07:19:38 Parkinson's disease 72349555 G20 Stable, says she is slowing down, no recent fallsFollo wed by Dr Suárez, will request last note uses walker and wheelchair Reports word finding difficulty , unable to write or type, difficulty reading Neuro recently ordered in home PT -- continue amantadine and carbidopa- levodopa-- PT ordred by neuro in home, encouraged to call if there is delay / issue getting this started Cough 33847245 R05.9 phlegmy coughlungs clear on examlikely related to parkinsons --- continue mucinex, humidifier -- hydrate-- start flonase [id number] Karmen West . MD MULLIGAN, [facility], OFFICE [address] [place] [address] 1 04/15/2023 14:55:39 04/16/2023 13:58:13 Active or passive immunization 490582061 Z23 Abnormal gait 53409783 R 26.9 Increasing falls, now requiring wheelchair for long distances, using walker for shorter distances. Pt was receiving physical therapy which was helpful, given home exercises to do.--Tonya nue to perform home exercises for strength, balance training. Parkinson's disease 4904 9[address] Suárez, worsening with increased falls, now requiring wheelchair use majority of time, uses walker to walk short distances such as to the bathroom.- -Continue carbidopa/ levodopa 4x/day plus one ER dose at bedtime, amantadine 100mg BID.--Foll ow up with neurology, pt has visit next week.--Fol low up with new/worsen ing concerns. Moderate m ajor depression, single episode 94052603 F32.1 Patient reports fluctuatio ns with mood, some days better than others. Pt declined needing therapist at this time.--Con tinue citalopram 40mg daily.--Fo llow up with worsening depression .--Encoura ged activities that bring patient pleasure. [id number] Art Whalen MD FP, [facility], [address] [place] [address] 05/24/2023 11:34:10 05/24/2023 12:55:54 Dysuria 51384179 R30.0 Patient with urinary symptoms.H istory and exam and urinalysis consistent with UTI.No symptoms of pyelonephr itis.Low risk of . unable to voidDiscus sed supportive and preventive measures.P atient instructed to follow up if not better or with new symptoms. [id number] Art Whalen MD , [facility], OFFICE [address] [place] [address] 1 08/12/2023 14:18:50 08/12/2023 17:23:16 Edema of lower extremity 449330921 R60.0 -bilat above sockline 1/2 upno tenderness or woundsdtr disturbed by thisagreed to add HCTZ 25told must have labs one monthdtr states she will purchase and place on compressio n socks in AM before she gets set in her chair Under care of palliative care physician 548506672 Z51.5 Dr Weinstein Parkinson's disease 4904 9000 G20.B2 implanted stimulator medsneurol ogy f/u [id number] Karmen West . , [facility], OFFICE [address] [place] [address] 1 09/22/2023 11:50:07 09/24/2023 11:06:50 Adult health examination 808110863 Z00.00 Poor health, patient has worsening Parkinsons and depression . Her daughter now lives with her.MOLST and health proxy on file Depression screening 171 171058 Z13.31 depression screening tool administer ed Screening for alcohol abuse 849249054 Z13.39 Alcohol use screening tool administer ed Parkinson's disease 4904 9[address] Suárez, has deep brain stimulator Worsening with increased falls, now requiring wheelchair use majority of time, daughter just got her motorized wheelchair which she is learning to use. Reports worsening depression . Reports increased visual hallucinat ions - unclear cause but most likely due to Parkinsons as no recent med changes and does not report symptoms of UTI.Has PT and OT at the home --Continue current medication s--Follow up with neurology, daugther will call to discuss decline--C ontinue PT/OT Mixed hyperlipidemia 267 912777 E78.2 no further treatment Visual hallucinations 64 612264 R44.1 Visual hallucinat ions every night this past week - sees fabrics with different patterns in her hand, can feel the the fabric, stuffs it in her hand and throws it away, next morning nothign in trash can.Also sees cats - has for months maybe years No new medication or med changes, no signs or symptoms of infection. Likely due to Parkinsons -- pt to follow up w neurology- - check CBC today-- Consider UA in future, will place order pt can drop off sample. Edema of l ower extremity [id number] R60.0 Was started on HCTZ 07/23/23 in ED for LE edema, swelling has resolved, is getting up more frequently to urinate. Per daughter, does not drink much fluids.-- check BMP today, pending lab will continue or stop med-- advised needs to increase hydration Major depr essive disorder [id number] F32.0 Reports worsening depression , withdrawi ng more Curre ntly taking citalopram 40 mg dailyDecli wilbur at this time-- shared decision to monitor for now, see if mood improves with weather and spring arrival, getting outside. If not improving, follow up will refer to psych Recurrent falls [id number] 2 R29.6 Secondary to parkinsons , last fell yesterday, reports no injury-- Continue PT / OT at home, is learning to use motorized wheelchair [id number] Karmen West . , [facility], OFFICE [address] [place] [address] 10/28/2023 16:10:59 10/28/2023 16:42:01 Edema of lower extremity [id number] R60.0 Much improved. HCTZ discontinu ed due to elevated serum Cr. Pt daughter reports significan t edema after 1 dose pimavanser in, stopped med. Today trace edema LE bilat. -- low salt diet, compressio n stockings, elevation. If worsening consider prn lasix Serum crea tinine above reference range [id number] R79.89 pt had labs drawn today, will call w result. Visual hallucinations 64 249573 R44.1 Likely due to Parkinsons Was started on pimavanser in by neuro, 1 dose then stopped due to LE edema.-- advised to follow up w neuro Parkinson's disease 4904 [address]20[address] Suárez, has deep brain stimulator Worsening with increased falls, now requiring wheelchair use majority of time, daughter just got her motorized wheelchair which she is learning to use. Reports worsening depression . marcia arriaga Has PT and OT at the home, learning to use electric wheelchair --Continue current medication s--Follow up with neurology- -Continue PT/OT Pain of bi lateral knee joints [id number] M25.561 worsening pain bilat knees, OA-- adivsed take tylenol 3-4 times daily-- discussed joint injection, she will consider, will refer to Dr Hinds if she would like to pursue [id number] Dayton holman, CHANGE MANAGEMENT MANAGER FP, [facility], OFFICE [address] [place] [address] 05/03/2024 13:12:16 05/03/2024 16:27:37 Parkinson's disease [id number] G20.B2 Followed [address] Suárez, has deep brain stimulator Now in wheelchair , doing PT and OT exercises daily in the morningsSt able --Continue current medication s--Follow up with neurology Increased frequency of urination 500006312 R35.0 stable, no pain, likely OABUA 04/03/24 wnlbladder US 04/21/24 normal no post void residualPt now wears depends, reports no issues, continue Benign ess ential hypertension 2394223 I10 slightly above goal, will monitor. Given age will defer starting med at this time [id number] Dayton holman, CHANGE MANAGEMENT MANAGER FP, [facility], [address] [place] [address] 04/03/2024 09:53:41 04/06/2024 09:34:10 Urgent desire to urinate 17334939 R39.15 Increased frequency of urination 803962815 R35.0 Reports increased urinary frequency, incontinen ce, and some suprapic tenderness over the past few months.UA today normal.NO suprapubic tenderness on exam, bladder not hard to palpation. Pt has parkinsons , question urinary retention. -- US ordered-- adivsed to avoid bladder irritants, pt will stop eating tomatoes for a week and monitor symptoms-- follow up 1 month , sooner if worsening Essential hypertension 48593655 I10 Not on medication s for blood pressure. Not controlled in office.-- monitor at home, her daughter will call case assistant in a week with the readings. if not at goal will add antihypert ensive. Consider lisinopril . Would avoid diuretic due to urinary frequency and incontinen ce. Parkinson's disease 4904 9000 G20.B2 [address] Suárez, has deep brain stimulator Increased falls --Continue current medication s--Follow up with neurology- - will refer for PT, pt is homebound Recurrent falls 29296847 2 R29.6 Secondary to parkinsons Recurrent falls transition ing from her motorized wheelchair to other chair or toilet-- will refer to in home PT [phone] Art Whalen MD , [facility], [address] [place] [address] 08/14/2024 10:53:12 08/14/2024 11:30:49 COVID-19 [id number] U07.1 A discussion regarding the use of Paxlovid treatment in the setting of COVID-19 infection was had with the patient. The patient qualifies for Paxlovid treatment. They are 12 years old or older and weight at least 40kg (88lbs). They have a positive COVID test (either PCR or antigen). Symptom onset was within 5 days. They do not have severe renal impairment (GFR >30). If the GFR is 30-60, the dose of the medication is reduced. eGFR >60: 300mg nirmatrelv ir (two 150mg tablets) with 100mg ritonavir (one tablet). All 3 tablets taken together twice daily for 5 days, with or without food. ? eGFR 30-60: 150mg nirmatrelv ir with 100mg ritonavir. Both tablets taken together twice daily for 5 days, with or without food. The patient was advised that the treatment is sent to a local pharmacy. We have checked availabili ty through this website: https://ww w.[employer].gov /info-deta ils/inform ation-for- providers- about-ther apeutic-tr eatments-f or-covid-1 9#covid-19 -therapeut ic-technology support analyst - This medication is authorized by the FDA for emergency use only. Data from clinical trials have shown that these treatments reduce the risk of ER visits, hospitaliz ation, and in patients with mild to moderate symptoms, and those at high risk of complicati ons. Side effects were discussed: 1. Allergic reactions are possible, notify the nurse with any concerning symptoms 2. Liver problems ? notify your provider if you experience loss of appetite, yellowing of the skin or eyes, dark colored urine, or pale colored stools. 3. Altered sense of taste 4. Nausea 5. High blood pressure 6. Muscle aches 7. This is medication is still being investigat ed so not all side effects are known at this time. 8. Risks for or breastfeed ing women are currently unknown. 9. This medication may interact with oral control options. Please use condoms or a barrier method while on this medication . Your provider has reviewed interactio ns with all of your medication s and the following need to be stopped or the dose reduced: xxx How do I take PAXLOVID? PAXLOVID consists of 2 medicines: nirmatrelv ir and ritonavir. - Take 2 pink tablets of nirmatrelv ir with 1 white tablet of ritonavir by mouth 2 times each day (in the morning and in the evening) for 5 days. For each dose, take all 3 tablets at the same time. - If you have kidney disease, talk to your healthcare provider. You may need a different dose. - Swallow the tablets whole. Do not chew, break, or crush the tablets. - Take PAXLOVID with or without food. - Do not stop taking PAXLOVID without talking to your healthcare provider, even if you feel better. - If you miss a dose of PAXLOVID within 8 hours of the time it is usually taken, take it as soon as you remember. If you miss a dose by more than 8 hours, skip the missed dose and take the next dose at your regular time. Do not take 2 doses of PAXLOVID at the same time. will hold nuplaxid for 5 days Parkinson's disease 4905 9000 G20.B2 will hold nuplazid for 5 dayshas held previously w/o complicati onwill restart after finishing paxlovid Goals Section Goal Description Progress Status Start Date LastModified by Organization Details LastModified Time Adequate Sleep Achieves adequate, well-rested sleep with minimal disruption NoChange active 2022 Brenda Stock RN Information not available 03/28/2023 15:02:46 Quality of Life Reports satisfaction with quality of life NoChange active 2022 Brenda Stock RN Information not available 03/28/2023 15:02:46 Exercise Regularl y Follows a regular exercise regimen or instructed exercise plan as per care team recommendation (s) Regressing active 2022 Brenda Stock RN Information not available 09/23/2023 20:40:17 Active Range of Motion Demonstrates normal or improved active range of motion as defined by care team Regressing active 2022 Brenda Stock RN Information not available 09/23/2023 20:40:19 Activiti es of Daily Living Performs activities of daily living independently or with minimal assistance NoChange active 2022 Brenda Stock RN Information not available 03/28/2023 15:02:46 Recreati onal Activiti es Participates in recreational activities Regressing active 2022 Brenda Stock RN Information not available 09/23/2023 20:40:25 Medicati on Regimen Follows medication regimen as per care team recommendation (s) NoChange active 2022 Brenda Stock RN Information not available 03/28/2023 15:02:46 Chronic Disease Symptom Manageme nt Reports no new or worsening symptoms NoChange active 2022 Brenda Stock RN Information not available 03/28/2023 15:02:46 Follow-u p Appointm ent(s) Attends referral and/or follow-up appointment(s) as per care team recommendation (s) NoCtresge active 2022 Brenda Stock RN Information not available 03/28/2023 15:02:46 Effectiv e Coping Manages life events with effective coping methods NoChange active 2022 Brenda Stock RN Information not available 03/28/2023 15:02:46 Cognitiv e Awarenes s Maintains baseline level of cognitive awareness Regressing active 2022 Brenda Stock RN Information not available 09/23/2023 20:40:32 Caregive r Educatio n and/or Support Reports being supported [facility] caregiver role [facility]da [facility] RN Information not available 03/28/2023 15:02:46 Home/Env ironment Safety Reports having a safe environment that promotes independence and prevents injury [facility] Brenda Stock RN Information not available 03/28/2023 15:02:47 Fall Safety Reports no recent falls and/or fall injuries [facility] Brenda Stock RN Information not available 03/28/2023 15:02:47 Strength and Conditio amy Achieves improved strength and conditioning as defined by care team [facility] active 2022 Brenda Stock RN Information not available 03/28/2023 15:02:47 Assistiv e/Adapti ve Devices Uses assistive/adap tive devices properly and safely as per care team recommendation (s) [facility] active 2022 Brenda Stock RN Information not available 03/28/2023 15:02:47 Communic ate Needs Demonstrates the ability to communicate needs and wishes [facility] Brenda Stock RN Information not available 03/28/2023 15:02:47 Balance Maintains or improves baseline balance [facility] Brenda Stock RN Information not available 03/28/2023 15:02:47 Health Concerns Section Related Observation LastModified by Organization Detai ls LastModified Time None Recorded Concern Status LastModified by Organization Details LastModified Time Depressive disorder Active Brenda Stock RN Not Avail able 03/28/2023 15:00:08 Parkinson's disease Active Brenda Stock RN Not Avail able 03/28/2023 14:59:50 Abnormal gait Active Brenda Stock RN Not Available 0 03/28/2023 15:00:24 Advance Directives Directive N: given forms to complete a nd return. Payers Encounter Date Sequence Insurance Name Policy Number Policy Li Covered Member ID Li Member ID Guarantor Name 09/22/2023 1 [place] [employer] Cristal Hutson Maryuri [id number] Cristal Hutson Maryuri 09/22/2023 [address] [facility] - MEDICARE EXTENSION (INDEMNITY) [id number] Cristal Hutson Maryuri [id number] Cristal Hutson Maryuri 10/28/2023 1 [place] [employer] [employer] Cristal Hutson Maryuri [id number] Cristal Hutson Maryuri 10/28/2023 [address] [facility] - MEDICARE EXTENSION (INDEMNITY) [id number] Cristal Hutson Maryuri [id number] Cristal Hutson Maryuri 04/03/2024 1 [place] [employer] Cristal Hutson Maryuri [id number] Cristal Hutson Maryuri 04/03/2024 2 [facility] INDEMNITY PLAN - UNICARE [id number] Cristal Hutson Maryuri [id number] Cristal Hutson Maryuri 05/03/2024 1 [place] [employer] Cristal Hutson Maryuri [id number] Cristal Hutson Maryuri 05/03/2024 2 [facility] INDEMNITY PLAN - UNICARE [id number] Cristal Hutson Maryuri [id number] Cristal Hutson Maryuri 08/14/2024 1 [place] Cristal Hutson Maryuri [id number] Cristal Hutson Maryuri 08/14/2024 2 [facility] INDEMNITY PLAN - UNICARE [id number] Cristal Hutson Maryuri [id number] Cristal Hutson Maryuri Notes Date Note Type Note Provider Name and Address Organization Details Recorded Time 4 text/html Risk Assessment and Lifestyle Change Counseling 65+ (Medicare)Reported bypatient.Coronary Artery Disease Risk Assessment:No Family history of coronary artery disease; No personal history of diabetes; No history of peripheral vascular disease, AAA, or carotid disease; No personal history of coronary artery disease Breast Cancer Risk Assessment:Family history of breast cancer multiple first or second degree relatives Cognitive/Behavioral Risk Assessment:Personal history of mental illness Safety Risk Assessment:History of falls 7+ falls in 12 months; No evidence of abuse/neglect Functional Status:Patient has trouble hearing the television or radio when others do not.;Patient has to strain or struggle to hear/understand conversations.;Patient needs help with preparing meals,transportation, shopping, taking medicines, managing finances, or other activities of daily living.;Patient has visual loss that interfers with daily activities;Lives alone;Patient was unsteady or takes longer than 30 seconds during the timed get up and go test.;Patient reports 3+ falls in the past 6 months. Is getting shorter on breath Lives alone, daughter is in [place], daughter is going through a hard time Visual hallucinationsevery night this past weekwithdrawing more and zavala medication changessees fabrics with different patterns, can feel the the fabric, stuffs it in her hand and throws it awayfor the past few weeksAlso sees cats - has for months maybe yearssometimes slurs speach no changes with urination water pill helps whe LE swellingdoes not drink enough water Is falling more, has an electric wheelchair Neuro ordered PT and OT, working with her and teaching her to use the chair, only using it w PT and OT currently Fell todaylast week twisted her ankle again Dayton Bui NP [address] [place], [address], [facility] 09/24/2023 08:39:08 4 text/html HCTZ added Aug due to LE swelling bilatStopped hctz on September 24 due to increased serum Cr Started med for hallucination October 14, took 1 dose, then stopped knee pain worsening Dayton Bui NP [address] [place], [address], [facility] 10/28/2023 16:52:51 4 text/html ?ing uti, Pt reports lower abdominal pressure and urgency. Denies fevers, hematuria or fevers. \urinary frequencysuprapubic pressure now is on depends instead of a pad BP - monitor for a week, call, consider adding med USphysical therapy Dayton Bui NP [address] [place], [address], [facility] 04/03/2024 11:30:45 4 text/html doing PT and OT exercises dailyusing nasal spray daily in the morningusing depends nownow in wheelchair Dayton Bui NP [address] [place], [address], [facility] 05/03/2024 13:56:50 5 text/html vv-videoCOVID positive 08/13 last nightUnsure when sx began.Sx include cough, chest congestion, fatigue, slight SOB.Denies fevers or GI upset.has covid before- did paxlovidDr arethya started Nuplazid - has stopped before- did ok with hold of nuplazid in past Madonna Miner NP [address] [place], [address], [facility] 08/14/2024 11:26:10 OBGyn Episode No OBEpisode recorded.
--- OUTSIDE RECORDS SUMMARY | 2024-11-12 12:37 | XMS_ITS | Encounter Summary ---
Author Organization [facility] Address [address] [place] [address] Care Team Providers Care Air Vice Marshal Name Role Phone Yuly Natarajan MD Primary Care Provider [phone] Encounter Details Date Type Department Care Team (Late st Contact Info) Description 11/10/2024 Telephone [facility] Medical [facility] Neurosurgery [address] [address] Tracy Payton MD [address] [place] [address] Social History Tobacco Use Types Packs/Day Years [...] encounter Miscellaneous Notes * Telephone Encounter - Jonathan Mendez MA - 11/10/2024 12:56 PM EDT Images from the original note were not included. Pt referred per below Plz refer the patient to the [facility] clinic in [place] so they can manage her DBS. thx Received: Today MD Jonathan Castro MA Parkinson's disease. documented in this encounter Plan of Treatment Upcoming Encounters Date Type Department Care Team (Late st Contact Info) Description 11/26/2024 3:00 PM EDT Office Visit [facility] Neurosurgery [address] [address] Marissa Schumacher PA-C [address] [address] documented as of this encounter Goals Goal Patient Goal Type Associated Problems Recent Progress Patient-Stated? Author Autogenera kj Goal Care Plan Autogenerated Problem No Daron Palacios, STUDENT documented as of this encounter Visit Diagnoses Not on filedocumented in this encounter Additional Health Concerns Active Problems Noted Date Diagnosed Date Autogenerated Problem 11/05/2024 documented as of this encounter Care Teams Air Vice Marshal Relationship Specialty Start Date End Date Yuly Natarajan MD [address] [place] [address] [address] [place] [address] PCP - General Neurology 11/10/24 documented as of this encounter
== END 2024-11-12 14:15 | disposition home or self-care (01) ==
LOC: HO.HSMS 12:34
PROVIDERS: PCP Nurse Practitioner Adult Health; Visit Provider Psychiatry & Neurology Neurology
DX: G20.B2 Parkinson's disease with dyskinesia, with fluctuations (principal); F09 Unspecified mental disorder due to known physiological condition; Z96.82 Presence of neurostimulator; Z09 Encounter for follow-up examination after completed treatment for conditions other than malignant neoplasm
CPT/HCPCS: 99214

== ENCOUNTER → 2024-11-12 12:34 | Outpatient (BNVA) | payer MEDICARE, OTHER, SELFPAY | PROVIDERS: PCP Nurse Practitioner Adult Health; Visit Provider Psychiatry & Neurology Neurology ==

== ENCOUNTER 2024-12-16 08:39 | Outpatient (AMB) | payer MEDICARE, OTHER, SELFPAY ==
--- NOTE | 2024-12-16 08:41 | MHC.OFFVIS ---
Vital Signs 12/16/24 08:46 BP 148/82 H Blood Pressure Location Rt brachial Position Sitting Pulse 71 Pulse Source Pulse Oximeter Pulse Oximetry (%) 96 Oxygen Delivery Method Room Air Intake Visit Reasons: follow up Intake Note: Patient following up for parkinson's disease Allergies latex Allergy (Mild, Verified 12/16/24 08:43) unknown Medication List - Last Reconciled 12/16/24 by Yuly Natarajan MD amantadine HCl 100 mg PO BID carbidopa-levodopa 25-100 mg 1 tab PO QID 90 days carbidopa-levodopa 50-200 mg ER 1 tab PO BEDTIME citalopram 40 mg PO DAILY docusate sodium (Colace) 100 mg PO DAILY donepezil 5 mg PO DAILY fluticasone propionate 50 mcg/actuation (Flonase Allergy Relief) 1 spray intranasal BID ibuprofen 400 mg PO Q8H pimavanserin (Nuplazid) 34 mg PO DAILY polyethylene glycol 3350 (Miralax) 17 grams PO DAILY PRN HPI Comments Details: 84y/o female with parkinsons disease, cognitive impairment Ben DBS September 2018 comes for follow up. She had generalized pain when her battery ran out. she had a battery replacement Nov 10 2024 . she fell out her wheel chair and her hallucinations have increased . she is better now.Her sutures are better healed now. she describes internal tremors when she is trying to sleep. Hallucinations are stable with Nuplazid. Percept PC [id number] Implant date November 2024 Battrey 98% Left STN 2.7 ma 60ms 170 hz Right STN 1.7 mA 60 ms 170 Hz History from initial visit- SHe restarted nuplazid when he hallucinations increased. .Her hallucinations are mild now and usually in the evening. she frequently misses her doses of medications. when she misses multiple doses she starts with sundowning and hallucinations. Her daughter lives with her. Bowel movements are stable- once every 4 days she has been breathing heavy and wheezing . Her daughter feels she has labored breathing . Mood is stable - has on and off depression she has help with her morning personal hygiene. she is doing the exercises at home. she used to play cards . she has a friend that takes her to lunch weekly shopping. [facility] Medical History Parkinson's disease with dyskinesia, with fluctuations Cognitive disorder Arthritis Aneurysm of internal carotid artery Surgical History S/P deep brain stimulator placement No pertinent past surgical history Social History Alcohol intake: current Patient Tobacco Use Status: Never used Tobacco Physical Exam Vital Signs: Last Vital Signs Pulse 71 12/16/24 08:46 BP 148/82 H 12/16/24 08:46 Pulse Ox 96 12/16/24 08:46 Oxygen Delivery Method Room Air 12/16/24 08:46 Const General: cooperative, healthy appearing and comfortable Orientation/consciousness: patient oriented x3 HEENT Head: Yes normal to inspection Neuro Other: mild decreased blink and facial expression speech- softer No tremors FFM and foot taps decreased mildly L>R In wheel chair General: patient oriented x3 Assessment & Plan Assessment & Plan (1) Cognitive disorder: Code(s): F09 - Unspecified mental disorder due to known physiological condition Category: Medical (2) Parkinson's disease with dyskinesia, with fluctuations: Code(s): G20.B2 - Parkinson's disease with dyskinesia, with fluctuations Category: Medical (3) S/P deep brain stimulator placement: Comment: September 2018 Code(s): Z96.89 - Presence of other specified functional implants Category: Surgical Plan Sinemet 25/100 1 -1-1.5-1.5 sinemet CR 50/200 qhs will monitor battery more closely Her daughter will increase the DBS stimulation by 0.2 and will jacky the results via portal BP 135/70 on rechecking No need for meds now as the BP fluctuates significantly on Parkinsons and i am concerned about orthosttaic hypotension will monitor start miralax for constipation Coding Level of Care Code Est Pt Level 4 (68138) Complex EM visit Add On G2211 Diagnoses Cognitive disorder F09 Parkinson's disease with dyskinesia, with fluctuations G20.B2 S/P deep brain stimulator placement Z96.89 Comment 16734 - DBS interrogated
[2024-12-16 08:46] VITALS: BP 148/82; PULSE 71; O2SAT 96
--- OUTSIDE RECORDS SUMMARY | 2024-12-16 08:59 | XMS_ITS | Data Portability ---
Author Organization [facility], [facility] Address [address] [place] [address] Care Team Providers Care Technical Customer Support Specialist Name Role Phone [facility] Neurologist YUDITH KYLE Neuropsychologist CORIE GONSALEZ Phys. Med[facility] Re[facility] [phone] CAMERON CROSS Orthopedist DAYTON BUI Primary Care Provider LYNNE MARCUM Neurologist ZION COATES Enrollment Services Dean Assessment Encounter Date Assessment Date Assessment LastModified by Organization Details LastModified Time 08/14/2024 08/14/2024 Patient agreed t o this visit via phone or secure telehealth platform. Patient understands this is a scheduled visit and the usual procedures with regard to billing and confidentiality apply. Patient was notified that the [place] [facility] [place] During the visit the patient? s medical history and medical record were reviewed. The patient was notified to call our office for worsening or urgent symptoms. [email or web address] Not available 08/14/2024 10:53:38 11/30/2024 11/30/2024 We reviewed your chronic medical conditions and updated your plan for management. Please review instructions below. We have discussed your personal goals and discussed how to reach your goals. Please reach out to us via the Portal or phone if you have questions about your chronic conditions or if you or your caregivers require assistance in meeting your goals. Please visit our website [employer] for more patient resources. As part of your care plan, we will help coordinate your ongoing medical needs, arrange for durable medical equipment, renew prescriptions and necessary prior authorizations, facilitate getting referrals and collaborating with specialist, referrals for VNA services. [email or web address] Not available 11/30/2024 12:01:23 Plan of Treatment Reminders Order Date Submit Date Provider Last Modified By Organization Details Last Modified Time Details Appointments Follow Up, 15 2024 03:00P M Dayton Issa josephine, TELEPHONE ANSWERING SERVICE OPERATOR Not available Not available Not available LAB Follow -Up 2025 10:00A M [facility] Lab Not available Not available Not available [facility] ss Visit 30 2025 03:45P M [place] Issa josephine, TELEPHONE ANSWERING SERVICE OPERATOR Not available Not available Not available Lab urinal ysis, dipsti ck 2023 024 [facility], [address] [place] [address], [address], 04/04/2024 09:24:19 Referral None record ed. Procedures None record ed. Surgeries None record ed. Imaging US, blakassy r - check pre and post void residu al. Pt w increa sed freque ncy, incont innec, e suprap ubic discom fort. UA normal . Has geo callejas for urinar y retent ion 2023 024 [facility] (Imaging), [address], [place], [address], 04/21/2024 16:18:20 Medication Orders nirmat relvir 300 mg (150 mg x2)-ri tonavi r 100 mg tablet ,dose pack 2024 025 [facility]acy #[id number], [address] [facility], [place], [address], 08/14/2024 11:21:25 Patient TargetsNo targets recorded. Patient InstructionsNo instructions recorded. Reason for Referral None Reported. Results Created Date Observation Date Name Description Value Unit Range Abnormal Flag Note LastModifiedBy Organization Detail LastModifiedTime 10/21/19 24 10/22/2023 URINA LYSIS color YELLOW yellow Not Available [address], [address], 10/22/2023 10:58:35 10/21/19 24 10/22/2023 URINA LYSIS clarity CLEAR clear Not Available [address], [address], 10/22/2023 10:58:35 10/21/19 24 10/22/2023 URINA LYSIS glucose NEGATI VE negati ve Not Available [address], [address], 10/22/2023 10:58:35 10/21/19 24 10/22/2023 URINA LYSIS bilirubin NEGATI VE negati ve Not Available [address], [address], 10/22/2023 10:58:35 10/21/19 24 10/22/2023 URINA LYSIS ketones TRACE negati ve abnormal Not Available [address], [address], 10/22/2023 10:58:35 10/21/19 24 10/22/2023 URINA LYSIS specific gravity >=1.03 0 1.001- 1.035 Not Available [address], [address], 10/22/2023 10:58:35 10/21/19 24 10/22/2023 URINA LYSIS pH 5.5 5.0-8. 0 Not Available [address], [address], 10/22/2023 10:58:35 10/21/19 24 10/22/2023 URINA LYSIS protein NEGATI VE negati ve Not Available [address], [address], 10/22/2023 10:58:35 10/21/19 24 10/22/2023 URINA LYSIS urobilinogen 0.2 E.U./D L <1.0 Not Available [address], [address], 10/22/2023 10:58:35 10/21/19 24 10/22/2023 URINA LYSIS nitrates NEGATI VE negati ve Not Available [address], [address], 10/22/2023 10:58:35 10/21/19 24 10/22/2023 URINA LYSIS blood NEGATI VE negati ve Not Available [address], [address], 10/22/2023 10:58:35 10/21/19 24 10/22/2023 URINA LYSIS leukocytes NEGATI VE negati ve Not Available [address], [address], 10/22/2023 10:58:35 10/28/19 24 10/29/2023 COMP. METAB OLIC PANEL glucose 102 mg/dL 70-100 high Not Available [address], [address], 10/29/2023 10:56:38 10/28/19 24 10/29/2023 COMP. METAB OLIC PANEL BUN 21 mg/dL 7-18 high Not Available [address], [address], 10/29/2023 10:56:38 10/28/19 24 10/29/2023 COMP. METAB OLIC PANEL creatinine 0.9 mg/dL 0.8-1. 3 Not Available [address], [address], 10/29/2023 10:56:38 10/28/19 24 10/29/2023 COMP. METAB OLIC PANEL B/C 23.3 ratio Not Available [address], [address], 10/29/2023 10:56:38 10/28/19 24 10/29/2023 COMP. METAB [...] borat ion (CKD- EPI) Equat ion (Shyam r et. al 2020) as recom eduardo d by the Natio nal [facility] y [employer] ation . eGFR is based on age, serum creat inine , and sex. CKD-E PI does not calcu late eGFR by race, does not apply to child evette (age <18 years ), and shoul d not be used in pregn jane. Not Available [address], [address], 10/29/2023 10:56:38 10/28/19 24 10/29/2023 COMP. METAB OLIC PANEL sodium 141 mmol/ L 136-14 5 Not Available [address], [address], 10/29/2023 10:56:38 10/28/19 24 10/29/2023 COMP. METAB OLIC PANEL potassium 4.9 mmol/ L 3.5-5. 1 Not Available [address], [address], 10/29/2023 10:56:38 10/28/19 24 10/29/2023 COMP. METAB OLIC PANEL chloride 103 mmol/ L 96-107 Not Available [address], [address], 10/29/2023 10:56:38 10/28/19 24 10/29/2023 COMP. METAB OLIC PANEL anion gap 9.0 5.0-15 .0 Not Available [address], [address], 10/29/2023 10:56:38 10/28/19 24 10/29/2023 COMP. METAB OLIC PANEL CO2 29 mmol/ L 21-32 Not Available [address], [address], 10/29/2023 10:56:38 10/28/19 24 10/29/2023 COMP. METAB OLIC PANEL calcium 9.1 mg/dL 8.5-10 .3 Not Available [address], [address], 10/29/2023 10:56:38 10/28/19 24 10/29/2023 COMP. METAB OLIC PANEL total protein 7.0 g/dL 6.4-8. 2 Not Available [address], [address], 10/29/2023 10:56:38 10/28/19 24 10/29/2023 COMP. METAB OLIC PANEL albumin 3.8 g/dL 3.4-5. 0 Not Available [address], [address], 10/29/2023 10:56:38 10/28/19 24 10/29/2023 COMP. METAB OLIC PANEL globulin 3.2 g/dL Not Available [address], [address], 10/29/2023 10:56:38 10/28/19 24 10/29/2023 COMP. METAB OLIC PANEL A/G 1.2 ratio 0.8-2. 0 Not Available [address], [address], 10/29/2023 10:56:38 10/28/19 24 10/29/2023 COMP. METAB OLIC PANEL total bilirubin 0.50 mg/dL 0.00-1 .00 Not Available [address], [address], 10/29/2023 10:56:38 10/28/19 24 10/29/2023 COMP. METAB OLIC PANEL AST 13 U/L 0-37 Not Available [address], [address], 10/29/2023 10:56:38 10/28/19 24 10/29/2023 COMP. METAB OLIC PANEL ALT 8 U/L 6-63 Not Available [address], [address], 10/29/2023 10:56:38 10/28/19 24 10/29/2023 COMP. METAB OLIC PANEL alk. phos. 93 U/L 50-136 Not Available [address], [address], 10/29/2023 10:56:38 04/03/20 24 04/03/2024 POC UA glu UA NEGATI VE Not Available [facility] [address] [place] [address], [address], 04/03/2024 10:12:17 04/03/20 24 04/03/2024 POC UA clarity UA CLEAR Not Available [facility] [address] [place] [address], [address], 04/03/2024 10:12:17 04/03/20 24 04/03/2024 POC UA uro UA 0.[address] [facility] [address] [place] [address], [address], 04/03/2024 10:12:17 04/03/20 24 04/03/2024 POC UA ket UA NEGATI VE Not Available [facility] [address] [place] [address], [address], 04/03/2024 10:12:17 04/03/20 24 04/03/2024 POC UA pro UA NEGATI VE Not Available [facility] [address] [place] [address], [address], 04/03/2024 10:12:17 04/03/20 24 04/03/2024 POC UA nit UA NEGATI VE Not Available [facility] [address] [place] [address], [address], 04/03/2024 10:12:17 04/03/20 24 04/03/2024 POC UA avery UA NEGATI VE Not Available [facility] [address] [place] [address], [address], 04/03/2024 10:12:17 04/03/20 24 04/03/2024 POC UA pH UA 6.[address] [facility] [address] [place], [address], 04/03/2024 10:12:17 04/03/20 24 04/03/2024 POC UA SG UA >=1.[address] [facility] [address] [place] [address], [address], 04/03/2024 10:12:17 04/03/20 24 04/03/2024 POC UA color UA YELLOW Not Available [facility] [address] [place] [address], [address], 04/03/2024 10:12:17 04/03/20 24 04/03/2024 POC UA blo UA NEGATI VE Not Available [facility] [address] [place], [address], 04/03/2024 10:12:17 04/03/20 24 04/03/2024 POC UA junior UA NEGATI VE Not Available [facility] [address] [place], [address], 04/03/2024 10:12:17 04/21/20 24 04/21/2024 US, bladd er CLINIC [place] HISTOR Y: Freque nt [...] Readin g Physic charissa: Laz Trimble ms [facility] (Imaging) [address] , [place], [address], 07/05/2024 09:35:39 Result Notes None recorded. Problems Name Problem SNOMED Code Status Onset Date Resolution Date Notes Provider Name and Address Organization Details Recorded Time Single major depressi ve episode, moderate Active Not Available [facility] 0 11:09:14 COVID-19 863317861 Active 2021 Jennifer Pugh MD [address] [place] [address], [phone] , [facility] 2 15:31:25 Nodule of lung 069197713 Active 2023 2 sub 5mm nodules RUL CT Jul 2023, consider f/u 1 year Dayton Correa er, TELEPHONE ANSWERING SERVICE OPERATOR [address] [place] [address], [address] , [facility] 4 11:43:22 Benign essentia l hyperten pily 8691751 Active 2023 Dayton Correa er, TELEPHONE ANSWERING SERVICE OPERATOR [address] [place] [address], [address] , [facility] 4 13:55:43 Mixed hyperlip idemia 746873563 Active 2004 Not Available [facility] 0 11:09:14 Dyspnea 583201012 Completed 200205/26/2013 Not Available [facility] 3 02:02:44 Abnormal gait 90028204 Active 2007 Not Available [facility] 0 11:09:14 Precordi al pain 85624191 Completed 200405/26/2013 Not Available [facility] 3 02:02:30 Cough 71459023 Completed 200201/24/2011 Not Available [facility] 3 03:02:36 Hematoch ezia 950645459 Completed 200305/26/2013 Not Available [facility] 3 02:03:47 Benign essentia l hyperten pily 3504962 Completed 200603/17/2012 Dayton Correa er, TELEPHONE ANSWERING SERVICE OPERATOR [address] [place], [address] , [facility] 4 13:55:43 Acute cystitis 16001033 Completed 200005/26/2013 Not Available [facility] 3 02:02:31 Pain of hip region 51308173 Completed 200305/26/2013 Not Available [facility] 3 02:01:31 Hammer toe 600943702 Active 2007 Not Available [facility] 0 11:09:14 Vitreous degenera tion 79170857 Active 2000 Not Available [facility] 0 11:09:14 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 Completed 200101/24/2011 Not Available [facility] 3 03:02:36 Parkinso n's disease 07698118 Active 2007 Not Available [facility] 0 11:09:15 Joint pain in ankle and foot Completed 200701/24/2011 Not Available [facility] 3 03:02:36 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 Procedures Surgical History Date Name Laterality Status Provider Name and Address Organization Details Recorded Time 12/01/19 25 COPD Screening Questions completed Sigrid Holger, MA [facility] 11/30/2024 11:55:37 09/22/19 24 Medicare Wellness Visit completed Naomi Reyes [facility] 09/22/2023 08:42:25 08/26/19 23 Medicare Wellness Visit completed Dain Johnson MA [facility] 08/26/2022 14:53:52 05/09/20 21 Medicare Wellness Visit completed Cookie Hess [facility] 01/19/2021 10:41:20 05/09/20 21 prevention-cardiov ascular risk reduction counseling completed Cookie Hess [facility] 01/19/2021 10:41:21 05/09/20 21 prevention-annual alcohol misuse screening completed Cookie Hess [facility] 01/19/2021 10:41:21 05/09/20 21 Advanced Care Planning completed Dayton Bui NP [address] [place], [address], [facility] 05/13/2021 08:06:07 10/31/19 21 Suture/staple Removal completed Dayton Bui NP [address] [place], [address], [facility] 10/31/2020 20:05:09 01/12/20 20 Medicare Wellness Visit completed Declan Hernandez [facility] 01/12/2020 15:34:07 01/12/20 20 prevention-cardiov ascular risk reduction counseling completed Declan Hernandez [facility] 01/12/2020 15:34:07 01/12/20 20 prevention-annual alcohol misuse screening completed Declan Hernandez [facility] 01/12/2020 15:34:07 12/30/19 19 Medicare Wellness Visit completed Dede Orellana [facility] 12/29/2018 14:07:31 10/09/19 19 Medicare Wellness Visit completed Rosette Murrell MA [facility] 10/08/2018 15:16:12 08/29/19 18 Medicare Wellness Visit completed Rosette Murrell MA [facility] 08/29/2017 14:08:13 03/14/20 15 Medicare Wellness Visit completed Rosemarie Mcdonald LPN [facility] 03/14/2015 14:33:52 03/08/20 14 Medicare Wellness Visit completed Rosemarie Harry LENIN [facility] 03/08/2014 13:33:34 09/22/19 13 Medicare Wellness Visit completed Rosemarie LENIN Mcdonald [facility] 09/21/2012 14:09:41 09/06/19 12 Medicare Wellness Visit completed Rosemarie Mcdonald LPN [facility] 09/06/2011 14:16:18 01/25/20 11 Corticosteroid Injection completed Jaxon Morelos MD [address] [place], [address], [facility] 01/24/2011 12:58:13 11/26/19 09 Treatment and Advice completed Anmol Burnette, PT [address] [place], [address], [facility] 11/25/2008 17:03:52 11/19/19 09 Treatment and Advice completed Anmol Burnette, PT [address] [place], [address], [facility] 11/18/2008 12:20:17 11/11/19 09 Treatment and Advice completed Anmol Burnette, PT [address] [place], [address], [facility] 11/10/2008 15:34:15 10/29/19 09 Treatment and Advice completed Anmol Burnette, PT [address] [place], [address], [facility] 10/28/2008 13:36:18 10/19/19 04 completed Jaxon Morelos MD [address] [place], [address], [facility] 09/21/2012 14:38:36 deep brain stimulation completed Dayton Bui NP [address] [place], [address], [facility] 09/24/2023 08:36:38 Imaging Results None recorded. Procedure Notes None recorded. Medical Equipment None Reported. Allergies Allergen ID Allergen Name Allergen Category Reaction Reaction Severity Criticality Documentation Date Start Date Code Code System Note Provider Name and Address Organization Details Recorded Time 718605 latex environme nt,medica tion Not available Not available Not available 11/30/2024 34437 91 RxNorm [facility] 5 11:54:05 Medications Name Sig Start Date Stop Date [...] 200 mg tablet,ex tended release TAKE 1 TAB ORALLY AT BEDTIME active Not Available Not Available No t Available ciproflox acin 250 mg tablet TAKE ONE TABLET BY MOUTH EVERY 12 HOURS FOR 5 DAYS 08/12 completed Not Available Not Available Not Available sulfameth oxazole 800 mg-trimet hoprim 160 mg tablet 11/30 completed Not Available Not Available Not Available [...] No t Available oxycodone 5 mg tablet 11/30 completed Not Available Not Available Not Available neomycin 3.5 mg/g-poly myxin B 10,000 unit/g-de xameth 0.1 % eye oint APPLY 1 A SMALL AMOUNT INTO BOTH EYES THREE TIMES A DAY 11/30 completed Not Available Not Available Not Available Flovent HFA 110 mcg/actua tion aerosol [...] for inhalatio n INHALE 1 PUFF DAILY 11/30 completed Not using 08/14/24 AAS Not Available Not [...] TOGETHER TWICE A DAY FOR 5 DAYS 11/30 completed Not Available Not Available Not Available Vitals Date Recorded Body height Body temperature Provider N kellee and Address Organization Details Last Updated DateTime 08/14/2024 163.83 cm 98.1 [degF] Patricia Shelkey, [facility] 08/14/2024 11:00:45 Date Recorded Body height Heart rate Oxygen saturation Oxygen saturation in Arterial blood by Pulse oximetry Systolic blood pressure Diastolic blood pressure Provider Name and Address Organization Details Last Updated DateTime 4 163.83 cm 71 /min 96 % 96 % 132 mm[Hg] 70 mm[Hg] Naomi Reyes [facility] 4 16:20:16 Date Recorded Body height Heart rate Oxygen saturation Oxygen saturation in Arterial blood by Pulse oximetry Systolic blood pressure Diastolic blood pressure Provider Name and Address Organization Details Last Updated DateTime 5 163.83 cm 73 /min 95 % 95 % 150 mm[Hg] 82 mm[Hg] Sigrid Wren MA [facility] 5 12:00:14 Date Recorded Body height Heart rate Body temperature Systolic blood pressure Diastolic blood pressure Provider Name and Address Organization Details Last Updated DateTime 04/03/2024 163.83 cm 76 /min 98 [degF] 152 mm[Hg] 86 mm[Hg] Patricia Reyes [facility] 4 10:15:08 Date Recorded Body height Heart rate Oxygen saturation Oxygen saturation in Arterial blood by Pulse oximetry Systolic blood pressure Diastolic blood pressure Provider Name and Address Organization Details Last Updated DateTime 4 163.83 cm 71 /min 94 % 94 % 128 mm[Hg] 88 mm[Hg] Rosemarie Khan [facility] 4 13:35:53 Social History Question Answer Notes LastModified by Organizat ion Details LastModified Time Tobacco Smoking Status Former Smoker RARE CIGARETTE, LAST ONE 3 YRS AGO.05/03/24 11/30/24 Sigrid Wren MA [facility] 11/30/2024 11:55:25 Do You Have An Advance Directive? No Given Forms To Complete And Return. [email or web address] Information not available 12/21/2008 What Is Your Level Of Caffeine Consumption? Moderate 1 A Day 08/26/22tt Information not available 08/26/2022 What Type Of Diet Are You Following? REGULAR Information not available 08/26/2022 Have There Been Any Changes To Your Family Or Social Situation? No Information not available 08/26/2022 When Did You Quit Smoking? 16+yearssinc [email or web address] te Information not available 08/26/2022 Do You Use Insect Repellent Routinely? No Information not available 08/26/2022 Live Alone Or With Others? With Others [email or web address] Information not available 05/23/2011 Patient Has Health Care Proxy Signed And In Chart Yes Destiny POWER OF SAUSAGE GRINDER [email or web address] Information not available 01/08/2023 MOLST Form Signed And In Chart 04/07/2014 [email or web address] Information not available 03/14/2015 CCM Consent Discussion 08/29/2017 [email or web address] Information not available 08/29/2017 Marital Status [email or web address] Informatio n not available 04/07/2014 Mosquito Repellent Used Routinely Yes Information not available 06/08/2019 What Was The Date Of Your Most Recent Tobacco Screening? 08/14/2024 02/18/22MV, 09/22/23mhMV [email or web address] Information not available 08/14/2024 How Many Children Do You Have? 2 [email or web address] Information not available 05/23/2011 What Is Your Relationship Status? [email or web address] Information not available 11/30/2024 Do You Use Your Seat Belt Or [...] To Smoke? No Information not available 08/26/2022 How Much Tobacco Do You Smoke? No 2packs A Day Until She Quit Have Not Smoked In 3 Or More Yrs 08/26/22tt Information not available 08/26/2022 General Stress Level Low Information not available 06/08/2019 Do You Use Sunscreen Routinely? No Information not available 08/26/2022 How Many Years Have You Smoked Tobacco? 0 Information not available 10/30/2020 Sex: Female Functional Status Question Answer Note LastModified by Organizat ion Details LastModified Time Do you use any illicit or recreational drugs? No Information not available 08/26/2022 Do you or have you ever used any other forms of tobacco or nicotine? No Information not available 08/26/2022 What is your level of alcohol consumption? Occasional 2 times a week . 06/08/19 JI, 09/22/23 [email or web address] Information not available 09/22/2023 Do you or have you ever used smokeless tobacco? Never used smokeless tobacco Information not available 10/30/2020 Are you currently employed? 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 Never used electronic cigarettes Information not available 10/30/2020 What is your exercise level? None Information [...] virus, trivalent, preservative 1 completed Not Available [facility] 07/24/2019 02:29:55 pneumococcal polysaccharide PPV23 5 completed Not Available [facility] 05/22/2011 05:21:07 influenza, unspecified formulation 5 completed Not Available [facility] 05/22/2011 05:21:29 influenza, unspecified formulation 6 completed Not Available [facility] 05/22/2011 05:21:29 zoster live 7 completed Not Available [facility] 05/22/2011 05:21:55 influenza, unspecified formulation 7 completed Not Available [facility] 05/22/2011 05:21:55 influenza, unspecified formulation 8 completed Not Available [facility] 05/22/2011 05:22:13 Influenza, split virus, trivalent, preservative 2 completed Not Available [facility] 07/24/2019 02:18:34 Td(adult) unspecified formulation 5 completed Not Available [facility] 05/22/2011 05:22:52 Influenza, split virus, quadrivalent, PF 3 completed Not Available [facility] 07/24/2019 02:18:55 Influenza, high-dose, trivalent, PF 4 completed Not Available [facility] 07/24/2019 02:28:18 Influenza, high-dose, trivalent, PF 5 completed Not Available [facility] 07/24/2019 02:33:06 Pneumococcal conjugate PCV 13 5 completed Not Available [facility] 07/24/2019 02:32:59 Td (adult), 2 Lf tetanus toxoid, preservative free, adsorbed 8 completed Not Available [facility] 07/24/2019 02:22:32 Influenza, split virus, quadrivalent, preservative 8 completed Not Available [facility] 08/07/2019 02:10:43 Influenza, high-dose, trivalent, PF 9 completed Not Available [facility] 08/07/2019 02:10:44 Influenza, split virus, quadrivalent, preservative 0 [facility] 03/[facility]2020 11:51:13 Influenza, split virus, trivalent, preservative 0 completed Not Available [facility] 07/24/2019 02:17:47 COVID-19, mRNA, LNP-S, PF, 30 mcg/0.3 mL dose 1 completed CLEOP[place] Denson [facility] 10/30/2020 13:35:55 COVID-19, mRNA, LNP-S, PF, 30 mcg/0.3 mL dose 1 [facility] 13:36:07 Influenza, high-dose, quadrivalent, PF 3 completed Dayton Bui, TELEPHONE ANSWERING SERVICE OPERATOR [address] [place], [address], [facility] 04/15/2023 17:16:57 COVID-19, mRNA, LNP-S, PF, 30 mcg/0.3 mL dose 1 completed Declan Hernandez VIDEO NEWS EDITOR [facility] 05/09/2021 11:10:36 SARS-COV-2 (COVID-19) vaccine, UNSPECIFIED 3 completed Tyno Ty, [place] [facility] 04/15/2023 15:12:09 Respiratory syncytial virus (RSV) MAB, unspecified 3 completed Tyno Ty, [place] [facility] 04/15/2023 15:12:32 Influenza, high-dose, trivalent, PF 4 [facility] 05/[facility]/2024 13:35:12 COVID-19, mRNA, LNP-S, PF, rosa-sucrose, 30 mcg/0.3 mL 4 [facility]/2024 13:35:28 Past Encounters Encounter ID Performer Location Encounter Start Date Encounter Closed Date Diagnosis/Indication Diagnosis SNOMED-CT Code Diagnosis ICD10 Code Diagnosis Note [id number] MD ESE Kern, [facility], OFFICE [address] [place] [address] 1 06/17/2000 14:00:00 07/27/2008 02:02:29 [id number] Smooth Craig OD [facility], [facility] [address] [facility] [place] [id number] 1 10/15/2000 09:55:00 07/27/2008 02:02:29 [id number] Janak Valenzuela III, MD , [facility], OFFICE [address] [place] [address] 1 04/21/2001 16:30:00 07/27/2008 02:02:29 [id number] MD ESE Winslow, [facility], OFFICE [address] [place] [address] 1 05/14/2002 07:50:10 07/27/2008 02:02:29 [id number] [facility] LAB LAB - [facility] [address] [facility] [place] [id number] 1 06/04/2002 07:47:05 07/27/2008 02:02:29 [id number] [facility] MAMMOGRAPH Y Technologi st Radiology , [facility] [address] [place] [address] 1 07/06/2002 07:47:42 07/27/2008 02:02:29 [id number] [facility] - [facility] [address] [facility] [place] [address] 1 09/10/2002 14:28:17 07/27/2008 02:02:29 [id number] Marisa BRUMFIELD , [facility], OFFICE [address] [place] [id number] 1 01/25/2003 07:49:56 07/27/2008 02:02:29 [id number] Jaxon Morelos MD , [facility], OFFICE [address] [place] [id number] 1 02/14/2003 07:57:35 07/27/2008 02:02:29 [id number] Salazar Saucedo MD Radiology , [facility] [address] [facility] [place] [id number] 1 02/14/2003 08:53:08 07/27/2008 02:02:29 [id number] GABE Linn, [facility], OFFICE [address] [place] [id number] 1 09/21/2003 13:35:38 09/22/2003 08:59:43 [id number] Jaxon Morelos MD , [facility], OFFICE [address] [place]omy [place] [id number] 1 09/22/2003 11:18:32 09/23/2003 09:19:16 [id number] [facility] RADIOLOGY Technologi st Radiology , [facility] [address] [facility] [place] [id number] 1 09/22/2003 12:12:47 09/22/2003 13:00:23 [id number] [facility] LAB LAB - [facility] [address] [facility] [place] [id number] 1 09/30/2003 07:28:16 09/30/2003 12:15:09 [id number] [facility] MAMMOGRAPH Y Technologi st Radiology , [facility] [address] [facility] [place] [id number] 1 10/05/2003 13:21:12 10/06/2003 13:33:11 [id number] ASP, ZION MERCADO MD [facility], [facility] [place] [address] 1 10/19/2003 09:09:44 10/20/2003 07:42:20 [id number] Jaxon Morelos MD , [facility], OFFICE [address] [place] [address] 1 10/24/2003 08:10:02 10/25/2003 08:18:15 [id number] Carlos Canales , [facility], OFFICE [address] [place] [address] 1 12/30/2003 08:41:17 01/02/2004 10:08:22 [id number] Jaxon Morelos MD , [facility], OFFICE [address] [place] [address] 1 06/25/2004 16:24:31 06/26/2004 09:47:43 [id number] Jaxon Morelos MD , [facility], OFFICE [address] [place] [address] 1 09/25/2004 08:28:56 09/26/2004 08:38:54 [id number] [facility] LAB LAB - [facility] [place] [address] 1 09/26/2004 07:29:50 09/26/2004 07:52:02 [id number] Anmol Rios i, PT Physical Therapy, [facility] [place] [address] 1 09/27/2004 08:16:49 09/27/2004 08:46:55 [id number] Anmol Rios i, PT Physical Therapy, [facility] [place] [address] 1 10/03/2004 08:43:06 10/03/2004 08:53:22 [id number] Anmol Rios i, PT Physical Therapy, [facility] [place] [address] 1 10/10/2004 08:33:38 10/10/2004 08:35:03 [id number] Anmol Rios i, PT Physical Therapy, [facility] [place] [address] 1 10/17/2004 08:19:33 10/17/2004 08:28:17 [id number] Anmol Rios i, PT Physical Therapy, [facility] [place] [address] 1 10/25/2004 07:59:56 10/25/2004 08:00:23 [id number] [facility] MAMMOGRAPH Y Technologi st Radiology , [facility] [address] [place] [address] 1 11/06/2004 07:59:59 11/06/2004 16:01:06 [id number] [facility] LAB LAB - [address] [place] [address] 1 11/15/2004 11:26:18 11/15/2004 11:26:41 [id number] [facility] FLU CLINIC FP, [facility], OFFICE [address] [place] [id number] 1 06/06/2005 14:25:00 07/27/2008 02:02:29 [id number] Jaxon Morelos MD FP, [facility], OFFICE [address] [place] [id number] 1 06/18/2005 08:51:36 06/19/2005 08:47:22 [id number] Jaxon Morelos MD FP, [facility], OFFICE [address] [place] [id number] 1 11/20/2005 11:45:03 11/21/2005 08:52:26 [id number] [facility] LAB LAB - [address] [place] [address] 1 11/21/2005 07:02:12 11/21/2005 08:02:47 [id number] [facility] MAMMOGRAPH Y Technologi st Radiology , [facility] [address] [place] [address] 1 12/12/2005 14:03:42 12/13/2005 08:41:59 [id number] [facility] FLU CLINIC FP, [facility], OFFICE [address] [place] [id number] 1 06/23/2006 13:40:00 07/27/2008 02:02:29 [id number] Jaxon Morelos MD FP, [facility], OFFICE [address] [place] [address] 1 12/18/2006 08:31:20 12/19/2006 07:59:02 [id number] [facility] MAMMOGRAPH Y Technologi st Radiology , [facility] [address] [place] [address] 1 12/18/2006 09:24:21 12/18/2006 12:47:24 [id number] [facility] LAB LAB - [address] [place] [address] 1 01/26/2007 08:28:16 01/26/2007 08:28:26 [id number] Jaxon Morelos MD FP, [facility], OFFICE [address] [place] [id number] 1 02/09/2007 09:24:35 02/10/2007 08:09:07 [id number] [facility] RADIOLOGY Technologi st Radiology , [address] [place] [address] 1 02/18/2007 16:53:31 02/19/2007 07:04:43 [id number] Angie Kang MD , [facility], OFFICE [address] [place] [id number] 1 02/18/2007 15:16:22 02/19/2007 10:47:18 [id number] Jaxon Morelos MD , [facility], OFFICE [address] [place] [id number] 1 02/25/2007 08:59:08 02/26/2007 07:54:45 [id number] [facility] FLU CLINIC FP, [facility], OFFICE [address] [place] [id number] 1 05/07/2007 11:35:00 07/27/2008 02:02:29 [id number] Jaxon Morelos MD , [facility], OFFICE [address] [place] [address] 1 05/06/2008 10:47:52 07/27/2008 02:02:29 [id number] BRANNON [facility] Podiatry, [address] [place] [address] 1 05/30/2008 10:45:50 05/30/2008 17:09:18 [id number] [facility] MAMMOGRAPH Y Technologi st Radiology , [address] [place] [address] 1 05/26/2008 10:45:18 05/27/2008 06:59:27 [id number] Anmol Rios i, PT Physical Therapy, [address] [place] [address] 1 07/05/2008 10:25:16 07/05/2008 10:26:11 [id number] Anmol Rios i, PT Physical Therapy, [address] [place] [address] 1 07/12/2008 11:33:25 07/12/2008 11:33:29 [id number] Anmol Rios i, PT Physical Therapy, [place] [address] 1 07/15/2008 10:35:48 07/15/2008 10:35:51 [id number] Anmol Rios i, PT Physical Therapy, [facility] [place] [address] 1 07/25/2008 08:28:18 07/25/2008 08:28:22 [id number] Anmol Rios i, PT Physical Therapy, [facility] [place] [address] 1 07/26/2008 10:26:42 07/26/2008 10:26:48 [id number] Anmol Rios i, PT Physical Therapy, [facility] [place] [address] 1 07/29/2008 10:37:49 07/29/2008 10:37:53 [id number] Anmol Rios i, PT Physical Therapy, [facility] [place] [address] 1 08/02/2008 10:55:30 08/02/2008 10:55:34 [id number] Anmol Rios i, PT Physical Therapy, [facility] [place] [address] 1 08/05/2008 10:27:48 08/05/2008 10:28:02 [id number] Anmol Rios i, PT Physical Therapy, [facility] [place] [address] 1 08/05/2008 10:25:17 08/05/2008 10:25:51 [id number] Anmol Rios i, PT Physical Therapy, [facility] [place] [address] 1 08/12/2008 10:20:53 08/12/2008 10:21:25 [id number] Anmol Rios i, PT Physical Therapy, [facility] [place] [address] 1 08/16/2008 11:45:21 08/16/2008 11:45:25 [id number] Anmol Rios i, PT Physical Therapy, [facility] [place] [address] 1 08/19/2008 11:51:44 08/19/2008 11:51:50 [id number] Anmol Rios i, PT Physical Therapy, [facility] [place] [address] 1 08/23/2008 11:05:26 08/23/2008 11:05:31 [id number] Anmol Rios i, PT Physical Therapy, [facility] [place] [address] 1 08/26/2008 10:21:09 08/26/2008 10:21:17 [id number] Anmol Rios i, PT Physical Therapy, [facility] [place] [address] 1 08/30/2008 13:01:38 08/30/2008 13:01:47 [id number] Anmol Rios i, PT Physical Therapy, [facility] [place] [address] 1 09/02/2008 10:22:34 09/02/2008 10:22:39 [id number] Anmol Rios i, PT Physical Therapy, [facility] [place] [address] 1 09/06/2008 11:13:17 09/06/2008 11:13:22 [id number] Anmol Rios i, PT Physical Therapy, [facility] [place] [address] 1 09/13/2008 10:28:20 09/13/2008 10:28:26 [id number] Anmol Rios i, PT Physical Therapy, [facility] [place] [address] 1 09/16/2008 10:14:37 09/16/2008 10:14:42 [id number] Anmol Rios i, PT Physical Therapy, [facility] [place] [address] 1 09/20/2008 11:20:57 09/20/2008 11:21:01 [id number] Anmol Rios i, PT Physical Therapy, [facility] [place] [address] 1 09/23/2008 11:56:23 09/23/2008 11:56:29 [id number] Anmol Rios i, PT Physical Therapy, [facility] [place] [address] 1 09/27/2008 10:25:30 09/27/2008 10:25:33 [id number] Anmol Rios i, PT Physical Therapy, [facility] [place] [address] 1 09/30/2008 10:41:49 09/30/2008 10:41:53 [id number] Anmol Rios i, PT Physical Therapy, [facility] [place] [address] 1 10/04/2008 10:38:37 10/04/2008 10:38:40 [id number] Anmol Rios i, PT Physical Therapy, [facility] [place] [address] 1 10/14/2008 13:22:55 10/17/2008 10:13:42 [id number] Anmol Rios i, PT Physical Therapy, [facility] [place] [address] 1 10/21/2008 10:00:57 10/21/2008 14:23:21 [id number] Anmol Rios i, PT Physical Therapy, [facility] [place] [address] 1 10/28/2008 13:20:39 10/28/2008 13:48:46 [id number] Anmol Rios i, PT Physical Therapy, [facility] [place] [address] 1 11/04/2008 10:33:38 11/04/2008 13:19:50 [id number] Anmol Rios i, PT Physical Therapy, [facility] [place] [address] 1 11/10/2008 14:42:53 11/11/2008 08:39:57 [id number] Anmol Rios i, PT Physical Therapy, [facility] [place] [address] 1 11/18/2008 10:22:18 11/21/2008 13:53:31 [id number] Anmol Rios i, PT Physical Therapy, [facility] [place] [address] 1 11/25/2008 12:51:27 11/30/2008 08:13:12 [id number] Jaxon Morelos MD , [facility], [place] [address] 1 12/21/2008 09:51:15 12/22/2008 10:14:47 [id number] Anmol Rios i, PT Physical Therapy, [facility] [place] [address] 1 05/09/2009 14:21:55 05/11/2009 13:20:01 [id number] Anmol Rios i, PT Physical Therapy, [facility] [place] [address] 1 05/19/2009 10:23:04 05/22/2009 10:19:56 [id number] Anmol Rios i, PT Physical Therapy, [facility] [place] [address] 1 05/25/2009 13:09:23 05/26/2009 10:47:44 [id number] [facility] MAMMOGRAPH Y Technologi st Radiology , [facility] [place] [address] 1 05/29/2009 13:23:42 05/30/2009 13:31:59 [id number] Anmol Rios i, PT Physical Therapy, [facility] [place] [address] 1 06/08/2009 12:55:48 06/09/2009 11:49:03 [id number] Anmol Rios i, PT Physical Therapy, [facility] [place] [address] 1 06/15/2009 11:20:23 06/16/2009 09:23:33 [id number] MD ESE Winslow, [facility], OFFICE [address] [place] [address] 1 06/16/2009 10:47:52 06/16/2009 13:42:33 [id number] Anmol Rios i, PT Physical Therapy, [facility] [place] [address] 1 06/21/2009 12:32:39 06/23/2009 09:18:42 [id number] Anmol Rios i, PT Physical Therapy, [facility] [place] [address] 1 07/05/2009 11:07:31 07/05/2009 16:58:53 [id number] Anmol Rios i, PT Physical Therapy, [facility] [place] [address] 1 07/13/2009 10:58:30 07/14/2009 11:41:32 [id number] [facility] RADIOLOGY Technologi st Radiology , [facility] [place] [address] 1 07/14/2009 13:14:24 07/17/2009 13:57:38 [id number] Anmol Rios i, PT Physical Therapy, [facility] [place] [address] 1 07/20/2009 10:52:34 07/20/2009 16:54:14 [id number] Jaxon Morelos MD FP, [facility], OFFICE [address] [place] [address] 1 07/27/2009 12:11:45 07/27/2009 13:28:37 [id number] Anmol Rios i, PT Physical Therapy, [address] [place] [address] 1 07/27/2009 13:08:11 07/28/2009 09:09:41 [id number] Anmol Rios i, PT Physical Therapy, [address] [place] [address] 1 08/04/2009 12:40:05 08/07/2009 09:12:01 [id number] [facility] BONE DENSITY Radiology , [address] [place] [address] 1 08/11/2009 10:45:44 08/14/2009 11:15:47 [id number] Anmol Rios i, PT Physical Therapy, [address] [place] [address] 1 08/11/2009 11:18:14 08/14/2009 10:03:24 [id number] Jaxon Morelos MD , [facility], OFFICE [address] [place] [address] 1 08/22/2009 12:00:13 08/22/2009 14:23:59 [id number] Jaxon Morelos MD , [facility], OFFICE [address] [place] [address] [address] [place] [address] 1 12/25/2009 10:34:44 12/25/2009 11:57:59 [id number] Shahram Garces , [facility], OFFICE [address] [place] [address] 1 04/09/2010 16:48:05 04/09/2010 17:31:30 [id number] [facility] FLU CLINIC , [facility], OFFICE [address] [place] [address] 1 04/11/2010 11:05:44 04/12/2010 09:24:36 [id number] Jaxon Morelos MD , [facility], OFFICE [address] [place] [address] DR [place] [address] 1 06/21/2010 14:24:34 06/22/2010 09:34:54 [id number] [facility] MAMMOGRAPH Y Technologi st Radiology , [address] [place] [address] 1 07/04/2010 12:50:12 07/05/2010 13:21:11 [id number] Jaxon Morelos MD FP, [facility], OFFICE [address] [place] [address] 1 01/03/2011 11:46:53 01/03/2011 12:54:39 [id number] [facility] RADIOLOGY Technologi st Radiology , [facility] [place] [address] 1 01/09/2011 11:02:46 01/11/2011 09:55:45 [id number] Anmol Rios i, PT Physical Therapy, [address] [place] [address] 1 01/18/2011 08:50:58 01/18/2011 13:38:27 [id number] Anmol Rios i, PT Physical Therapy, [address] [place] [address] 1 01/23/2011 10:17:57 01/24/2011 09:45:10 [id number] Jaxon Morelos MD , [facility], OFFICE [address] [place] [address] 1 01/24/2011 11:19:10 01/24/2011 12:06:37 [id number] Anmol Rios i, PT Physical Therapy, [address] [place] [address] 1 01/25/2011 11:14:11 01/25/2011 16:43:07 [id number] Anmol Rios i, PT Physical Therapy, [address] [place] [address] 1 01/29/2011 14:24:27 01/29/2011 17:01:45 [id number] Anmol Rios i, PT Physical Therapy, [address] [place] [address] 1 01/31/2011 11:20:29 01/31/2011 16:11:41 [id number] Anmol Rios i, PT Physical Therapy, [facility] [place] [address] 1 02/14/2011 10:55:07 02/15/2011 12:13:27 [id number] Anmol Rios i, PT Physical Therapy, [facility] [place] [address] 1 02/21/2011 10:25:47 02/25/2011 13:10:57 [id number] Anmol Rios i, PT Physical Therapy, [address] [place] [address] 1 02/27/2011 10:47:53 02/28/2011 10:23:02 [id number] Anmol Rios i, PT Physical Therapy, [address] [place] [address] 1 03/14/2011 10:17:47 03/15/2011 12:32:06 [id number] Anmol Rios i, PT Physical Therapy, [address] [place] [address] 1 03/21/2011 10:17:45 03/22/2011 10:50:24 [id number] Anmol Rios i, PT Physical Therapy, [address] [place] [address] 1 04/10/2011 09:57:20 04/11/2011 11:05:21 [id number] Anmol Rios i, PT Physical Therapy, [address] [place] [address] 1 04/18/2011 10:23:51 04/19/2011 10:39:37 [id number] [facility] FLU CLINIC X , [facility], OFFICE [address] [place] [address] [place] [address] 1 04/22/2011 11:45:55 04/22/2011 12:40:18 [id number] MD ESE Winslow, [facility], OFFICE [address] [place] [address] [place] [address] 1 09/06/2011 14:09:06 09/06/2011 15:08:08 [id number] Jaxon Morelos MD , [facility], OFFICE [address] [place] [address] [place] [address] 1 03/17/2012 11:34:11 03/17/2012 12:21:23 [id number] MD ESE Winslow, [facility], OFFICE [address] [place] [address] [place] [address] 1 09/21/2012 14:06:43 09/21/2012 15:05:08 [id number] GABE Braun, [facility], OFFICE [address] [place] [address] [place] [address] 1 05/12/2013 15:23:22 05/12/2013 15:29:40 Influenza vaccine needed [id number] MD ESE Winslow, [facility], OFFICE [address] [place] [address] [place] [address] 1 03/08/2014 13:17:16 03/08/2014 14:13:16 Adult health examination [id number] see Risk Assessment and Lifestyle Change Counseling section above Counseling [id number] Parkinson's disease [id number] Jaxon Morelos MD , [facility], OFFICE [address] [place] [address] 1 04/07/2014 13:09:54 04/08/2014 08:22:03 Medicolegal examination [id number] Jaxon Morelos MD , [facility], OFFICE [address] [place] [address] 1 05/25/2014 11:15:56 05/25/2014 11:28:46 Influenza vaccine needed [id number] 043 [id number] MD ESE Winslow, [facility], OFFICE [address] [place] [address] 1 03/14/2015 13:49:46 03/14/2015 15:21:49 Influenza vaccine needed [id number] 106 Active or passive immunization 724639724 Adult heal th examination [id number] see Risk Assessment and Lifestyle Change Counseling section above Counseling [id number] Mixed hyperlipidemia 110111485 Cholestero l is not at goal Continue to work on diet and exercise as discussed Parkinson's disease 61676752 Single rayray or depressive episode, moderate 126467949 [id number] Jaxon Morelos MD , [facility], [address]ICE [address] [place] [address] 08/29/2017 13:59:59 08/29/2017 15:34:13 Adult health examination 633824103 Z00.00 see Risk Assessment and Lifestyle Change Counseling section above Counseling 136335526 Z71 .9 Mixed hyperlipidemia 267 334760 E78.2 Single rayray or depressive episode, moderate 515584393 F32.1 Parkinson's disease 4904 9000 G20 Active or passive immunization 624371632 Z23 [id number] Shahram Garces MD , [facility], OFFICE [address] [place] [address] 09/25/2017 16:33:22 09/25/2017 17:08:55 Eczema 59470593 L30.9 [id number] Jaxon Morelos MD , [facility], OFFICE [address] [place] [id number] 12/16/2017 14:51:26 12/16/2017 15:33:48 Parkinson's disease 93676030 G20 [id number] Jaxon Morelos MD , [facility], OFFICE [address] [place] [address] 03/13/2018 14:57:25 03/13/2018 15:56:07 Parkinson's disease 42878690 G20 [id number] MD ESE Carranza, [facility], OFFICE [address] [place] [address] 08/05/2018 09:46:45 08/05/2018 10:48:08 Pre-surgery evaluation 726919688 Z01.818 no contraindi cations to planned cranial implantfe begins the process which is thru aug 29 then september 09Dr Tata at [facility] Parkinson's disease 4904 9000 G20 5 x a day sinemet, 2 doses of tabs 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 497485096 G47.11 Single rayray or depressive episode, moderate 325449299 F32.1 [id number] MD ESE Winslow, [facility], OFFICE [address] [place] [address] 10/08/2018 15:05:32 10/08/2018 15:50:49 Abnormal involuntary movement 279458785 R25.9 Parkinson's disease 4904 9000 G20 [id number] Jaxon Morelos MD , [facility], OFFICE [address] [place] [address] 12/29/2018 13:45:17 12/29/2018 15:03:41 Adult health examination 927782150 Z00.00 see Risk Assessment and Lifestyle Change Counseling section above Counseling 843921444 Z71 .9 Depression screening 171 397349 Z13.89 depression screening tool administer ed, entered into emr, scored and discussed, time greater than 7.5 minutes Mixed hyperlipidemia 267 683260 E78.2 Parkinson's disease 4904 9000 G20 Depressive disorder 3548 9007 F32.0 [id number] MD ESE Winslow, [facility], OFFICE [address] [place] [address] 06/08/2019 13:28:25 06/08/2019 14:30:24 Mixed hyperlipidemia 183559594 E78.2 Parkinson's disease 4904 9000 G20 Major depr essive disorder 590207828 F32.9 [id number] Karmen MULLIGAN, [facility], OFFICE [address] [place] [place] [address] 01/12/2020 15:39:41 01/12/2020 16:32:49 Depressive disorder 77687079 F32.0 Adult heal th examination 923864185 Z00.00 Counseling 903171765 Z71 .9 including cardiovasc ular risk reduction counseling Depression screening 171 433464 Z13.89 depression screening tool administer ed, entered into emr, scored and discussed, time greater than 7.5 minutes Screening for alcohol abuse 692807967 Z13.39 Mixed hyperlipidemia 267 919824 E78.2 Toenail thickened 899743 000 R23.8 [id number] Karmen Brett . MD [place], [facility], [address] [place] [address] 10/30/2020 13:29:01 10/30/2020 13:57:17 Laceration of head 400239625 S01.91XD seen in ED 10/22/20 for laceration [...] up -- continue amantadine and carbidopa- levodopa [id number] Art Whalen MD , [facility], [address] [place] [address] 05/09/2021 10:59:39 05/14/2021 06:46:10 Adult health examination 508591866 Z00.00 Poor health, patient has Parkinsons and worsening depression , is tired of living and is ready to go.She lives alone but has helper a few hours in the morning, and [facility] the last year as a slog Reviewed MOLST, DNR DNI, no interventi onsWill refer [facility] and provided patient info to call [facility] schedule appt with Tyler Martínez, , to help her access online resources. She loves learning, and this would improve quality of life, she has difficulty with her vision, hand dexterity, and memory so needs help with this. Counseling 066305819 Z71 .9 including cardiovasc ular risk reduction counseling Depression screening 171 526836 Z13.31 depression screening tool administer ed, entered into emr, scored and discussed, time greater than 7.5 minutes Screening for alcohol abuse 794788671 Z13.39 Advance di rective discussed with patient 359080278 Z71.89 Mixed hyperlipidemia 267 992206 E78.2 no further treatment Depressive disorder 1233 9007 F32.0 Worsening, not controlled , is ready to .-- referred to IB-- continue citalopram 40 daily Parkinson's disease 4904 9000 G20 Worsening - frequent falls, memor issues, depression , difficulty with hand dexterityF ollowed by Dr Suárez uses walker and wheelchair -- continue neuro follow up -- continue amantadine and carbidopa- levodopa-- referred to palliative care-- reviewed MOLST form [id number] Jennifer Pugh MD FP, [facility], [address] [place] [address] 10/30/2021 15:01:47 11/15/2021 16:38:52 COVID-19 631115450 U07.1 checked all meds for interactio ns; discussed covid care. given doses for ibuprofen and tylenol, mucinex for phlegmy cough she ahs trouble clearing Exposure t o SARS-CoV-2 968310771 Z20.984 [id number] Dayton Correa er, TELEPHONE ANSWERING SERVICE OPERATOR FP, [facility], [address] [place] [address] 11/09/2021 13:07:35 11/09/2021 13:57:55 Mixed hyperlipidemia 151697480 E78.2 no further treatment COVID-19 721399978 U07.1 Very tired, is very slowly improving, no dyspneaTre ated with Paxlovid Parkinson's disease 4904 9000 G20 StableFoll owed by Dr Suárez uses walker and wheelchair -- continue amantadine and carbidopa- levodopa Moderate r ecurrent major depression 00843152 F33.1 SLightly improved compared to 6 months ago. Has some passive SI (thinks of not waking up). Has been socializin g more. Conitnue citalopram 40 dailyencou raged to continue to reach out to family and friendsfol low up if worsenignh as been connected with palliative care [id number] Najma Chirinos D.O. , [facility], [address] [place] [address] 02/18/2022 13:19:50 02/18/2022 16:58:55 Recurrent major depressive episodes, moderate 573090797 F33.1 Doing well, socializin g more with group on her floor, playing [employer] e citalopram 40 daily Parkinson's disease 4904 9000 G20 Stable, says she is slowing downFollow ed by Dr Suárez, appt next month uses walker and wheelchair fell 3 weeks ok, hard to manipulate walker in her kitchen, it gets stuck.-- continue amantadine and carbidopa- levodopa COVID-19 891066046 U07.1 Recovered, back to pre-covid baseline Recurrent falls 34755971 2 R29.6 Fell in her kitchen - hard to maneuver her walker. unable to add bars in kitchen for stability. Looked online at other less bulky walker options, can consider one to stay in the kitchen. [id number] Art Whalen MD , [facility], [address] [place] [address] 08/26/2022 15:23:15 08/27/2022 07:45:20 Adult health examination 119645376 Z00.00 Poor health, patient has Parkinsons and depression . Her daughter now lives with her.Review ed MOLST on file, DNR DNI, no interventi onsHer daughter will drop of health proxy form. Multiple falls, sometimes falls out of bed. Feels weakner-- will refer for home PT, VNA eval Depression screening 171 287587 Z13.31 depression screening tool administer ed Screening for alcohol abuse 700822001 Z13.39 Alcohol use screening tool administer ed Mixed hyperlipidemia 267 255056 E78.2 no further treatment Parkinson's disease 4904 9000 G20 Stable, says she is slowing downFollow ed by Dr Suárez, will request last note uses walker and wheelchair Reports word finding difficulty , unable to write or type, difficulty readingmul tiple falls -- continue amantadine and carbidopa- levodopa-- referred for PT Recurrent major depressive episodes, moderate 816339415 F33.1 Chroniccon tinue citalopram 40 dailyEncou raged to reach out to friends on her floor. Encouraged to try to do one thing per week, she did see some good movies recentlyFo llow up if worsening Sleep jaden kendall disturbance 43822187 G47.9 Sometimes sleeps well, other times hard to fall asleep or falls out of bed due to dreams.-- advised melatonin PRN, if worsening follow up Recurrent falls 97005974 2 R29.6 Secondary to parkinsons , referred for home PT Dyspnea on exertion 6084 5006 R06.09 Chronic, worsening. Has increased mucus production . Occurs with ambulation . Daughter reports wheezing. No LE edema or chest pressure reported. -- trial flovent, if not improving follow up in office for eval and labs (CBC, BNP, BMP) [id number] Karmen West . MD [place], [facility], [address] [place] [address] 12/24/2022 15:26:57 01/06/2023 07:19:38 Parkinson's disease 22948406 G20 Stable, says she is slowing down, [...] delay / issue getting this started Cough 53524063 R05.9 phlegmy coughlungs clear on examlikely related to parkinsons --- continue mucinex, humidifier -- hydrate-- start flonase [id number] Karmen West . MD [place], [facility], [address] [place] [address] 04/15/2023 14:55:39 04/16/2023 13:58:13 Active or passive immunization 321244007 Z23 Abnormal gait 34946526 R 26.9 Increasing falls, now requiring wheelchair for long distances, using walker for shorter distances. Pt was receiving physical therapy which was helpful, given home exercises to do.--Tonya nue to perform home exercises for strength, balance training. Parkinson's disease 4904 [address] Arthreya, worsening with increased falls, now requiring wheelchair use majority of time, uses walker to walk short distances such as to the bathroom.- -Continue carbidopa/ levodopa 4x/day plus one ER dose at bedtime, amantadine 100mg BID.--Foll ow up with neurology, pt has visit next week.--Fol low up with new/worsen ing concerns. Moderate m ajor depression, single episode 07759608 F32.1 Patient reports fluctuatio ns with mood, some days better than others. Pt declined needing therapist at this time.--Con tinue citalopram 40mg daily.--Fo llow up with worsening depression .--Encoura ged activities that bring patient pleasure. [id number] Art Whalen MD , [facility], [address] [place] [address] 05/24/2023 11:34:10 05/24/2023 12:55:54 Dysuria 80026898 R30.0 Patient with urinary symptoms.H istory and exam and urinalysis consistent with UTI.No symptoms of pyelonephr itis.Low risk of . unable to voidDiscus sed supportive and preventive measures.P atient instructed to follow up if not better or with new symptoms. [id number] Art Whalen MD , [facility], [address] [place] [address] 08/12/2023 14:18:50 08/12/2023 17:23:16 Edema of lower extremity 296920959 R60.0 -bilat above sockline 1/2 upno tenderness or woundsdtr disturbed by thisagreed to add HCTZ 25told must have labs one monthdtr states she will purchase and place on compressio n socks in AM before she gets set in her chair Under care of palliative care physician 844618583 Z51.5 Dr Weinstein Parkinson's disease 4904 9000 G20.B2 implanted stimulator medsneurol ogy f/u [id number] Karmen West . , [facility], [address] [place] [address] 09/22/2023 11:50:07 09/24/2023 11:06:50 Adult health examination 955654552 Z00.00 Poor health, patient has worsening Parkinsons and depression . Her daughter now lives with her.MOLST and health proxy on file Depression screening 171 829254 Z13.31 depression screening tool administer ed Screening for alcohol abuse 775702986 Z13.39 Alcohol use screening tool administer ed Parkinson's disease 4468 [address]4 G20[address] Suárez, has deep [...] discuss decline--C ontinue PT/OT Mixed hyperlipidemia 267 782310 E78.2 no further treatment Visual hallucinations 64 869606 R44.1 Visual hallucinat ions every night this [...] off sample. Edema of l ower extremity 359620613 R60.0 Was started on HCTZ 07/23/23 in ED for LE edema, swelling has resolved, is getting up more frequently to urinate. Per daughter, does not drink much fluids.-- check BMP today, pending lab will continue or stop med-- advised needs to increase hydration Major depr essive disorder 713192994 F32.0 Reports worsening depression , withdrawi ng more Curre ntly taking citalopram 40 mg dailyDecli wilbur at this time-- shared decision to monitor for now, see if mood improves with weather and spring arrival, getting outside. If not improving, follow up will refer to psych Recurrent falls 82529810 2 R29.6 Secondary to parkinsons , last fell yesterday, reports no injury-- Continue PT / OT at home, is learning to use motorized wheelchair [id number] Karmen [place], [facility], [address] [place] [address] 10/28/2023 16:10:59 10/28/2023 16:42:01 Edema of lower extremity 313326591 R60.0 Much improved. HCTZ discontinu ed due to elevated serum Cr. Pt daughter reports significan t edema after 1 dose pimavanser in, stopped med. Today trace edema LE bilat. -- low salt diet, compressio n stockings, elevation. If worsening consider prn lasix Serum crea tinine above reference range 958324227 R79.89 pt had labs drawn today, will call w result. Visual hallucinations 64 687523 R44.1 Likely due to Parkinsons Was started [...] PT/OT Pain of bi lateral knee joints 7729004044 58438 M25.561 worsening pain bilat knees, OA-- adivsed take tylenol 3-4 times daily-- discussed joint injection, she will consider, will refer to Dr Hinds if she would like to pursue [id number] Dayton Correa er, TELEPHONE ANSWERING SERVICE OPERATOR , [facility], [address] [place] [address] 05/03/2024 13:12:16 05/03/2024 16:27:37 Parkinson's disease 68856332 G20.B2 [address] Suárez, has deep brain stimulator Now in wheelchair , doing PT and OT exercises daily in the morningsSt able --Continue current medication s--Follow up with neurology Increased frequency of urination 864074013 R35.0 stable, no pain, likely OABUA 04/03/24 wnlbladder US 04/21/24 normal no post void residualPt now wears depends, reports no issues, continue Benign ess ential hypertension 5501993 I10 slightly above goal, will monitor. Given age will defer starting med at this time [id number] Dayton Madeline holman, TELEPHONE ANSWERING SERVICE OPERATOR , [facility], [address] [place] [address] 04/03/2024 09:53:41 04/06/2024 09:34:10 Urgent desire to urinate 67945058 R39.15 Increased frequency of urination 662364478 R35.0 Reports increased urinary frequency, incontinen ce, and some suprapic tenderness over the past few months.UA today normal.NO suprapubic tenderness on exam, bladder not hard to palpation. Pt has parkinsons , question urinary retention. -- US ordered-- adivsed to avoid bladder irritants, pt will stop eating tomatoes for a week and monitor symptoms-- follow up 1 month , sooner if worsening Essential hypertension 01224943 I10 Not on medication s for blood pressure. Not controlled in office.-- monitor at home, her daughter will call outsole caser in a week with the readings. if not at goal will add antihypert ensive. Consider lisinopril . Would avoid diuretic due to urinary frequency and incontinen ce. Parkinson's disease 4904 9[address] Suárez, has deep brain stimulator Increased falls --Continue current medication s--Follow up with neurology- - will refer for PT, pt is homebound Recurrent falls 06432411 2 R29.6 Secondary to parkinsons Recurrent falls transition ing from her motorized wheelchair to other chair or toilet-- will refer to in home PT [id number] Art Whalen MD , [facility], [address] [place] [address] 08/14/2024 10:53:12 08/14/2024 11:30:49 COVID-19 552348138 U07.1 A discussion regarding the use of [...] checked availabili ty through this website: https://ww w.[employer].gov /info-deta ils/inform ation-for- providers- about-ther apeutic-tr eatments-f or-covid-1 9#covid-19 -therapeut ic-lamp shade maker - This medication is authorized by the [...] hold nuplaxid for 5 days Parkinson's disease 4904 9000 G20.B2 will hold nuplazid for 5 dayshas held previously w/o complicati onwill restart after finishing paxlovid [id number] FERMIN VAZQUEZ MD , [facility], [address] [place] [address] 11/30/2024 11:47:36 11/30/2024 12:55:18 Immunization due 466997899 Z23 shingles and pneumonia Parkinson's disease 4904 9[address]20[address] Suárez, has deep brain stimulator 11/10/24, changed her battery, [facility] neurosurge ryalmost back to baseline before the battery has follow up w neuro surg in 2 weeksdoing PT and OT exercises daily in the mornings --Continue current medication s--Follow up with neurology Benign ess ential hypertension 2560473 I10 Above goal, reports was normal at neurologis t last week. Pt falls frequnetly , does not want to start new med. Given age will defer starting med at this time. Pt to recheck BP at neuro in 2 weeks - if still high will send home BP cuff to monitor at home and if consistent ly 150s/90s would recommend medication . Will requeset recent labs from [facility] Seborrheic keratosis 394 202473 L82.1 R cheek, will monitor Transport problem 727759 004 Z59.82 May need assistance w transporta tion. Pt in wheelchair . Daughter sometimes can give her rides, but may need to schedule rides to her medical appointmen ts. Goals Section Goal Description Progress Status Start Date LastModified by Organization Details LastModified Time Adequate Sleep Achieves adequate, well-rested sleep with minimal disruption NoChange active 2022 Brenda Stock RN Information not available 03/28/2023 15:02:46 Quality of Life Reports satisfaction with quality of life NoCtresge active 2022 Brenda Stock RN Information [...] regimen as per care team recommendation (s) NoCtres active 2022 Brenda Stock RN Information not available 03/28/2023 15:02:46 Chronic Disease Symptom Manageme nt Reports no new or worsening symptoms NoChange active 2022 Brenda Stock RN Information not available 03/28/2023 15:02:46 Follow-u p Appointm ent(s) Attends referral and/or follow-up appointment(s) as per care team recommendation (s) NoCtres active 2022 Brenda Stock RN Information not available 03/28/2023 15:02:46 Effectiv e Coping Manages life events with effective coping methods [facility] Brenda Stock RN Information not available 03/28/2023 15:02:46 Cognitiv e Awarenes s Maintains baseline level of cognitive awareness Regressing active 2022 Brenda Stock RN Information not available 09/23/2023 20:40:32 Caregive r Educatio n and/or Support Reports being supported in caregiver role [facility] 2022 Brenda Stock RN Information not available 03/28/2023 15:02:46 Home/Env ironment Safety Reports having a safe environment that promotes independence and prevents injury [facility] active 2022 Brenda Stcok RN Information not available 03/28/2023 15:02:47 Fall Safety Reports no recent falls and/or fall injuries [facility] active 2022 Brenda Stock RN Information not available 03/28/2023 15:02:47 Strength and Conditio amy Achieves improved strength and conditioning as defined by care team [facility] active 2022 Brenda Stock RN Information not available 03/28/2023 15:02:47 Assistiv e/Adapti ve Devices Uses assistive/adap tive devices properly and safely as per care team recommendation (s) [facility] active 2022 Brenda Stock RN Information not available 03/28/2023 15:02:47 Communic ate Needs Demonstrates the ability to communicate needs and wishes [facility] active 2022 Brenda Stock RN Information not available 03/28/2023 15:02:47 Balance Maintains or improves baseline balance [facility] active 2022 Brenda Stock RN Information not [...] forms to complete a nd return. Payers Insurance Date Sequence Insurance Name Policy Number Policy Li Covered Member ID Li Member ID Guarantor Name 04/06/2024 2 [facility] - MEDICARE EXTENSION (INDEMNITY) [id number] Cristal Wahl [id number] Cristal Wahl 02/14/2003 1 [facility] - [facility] [id number] Jamil Delatorre Maryuri [id number] Cristal Hutson Maryuri 11/26/2024 2 [facility] [id number] Cristal Hutson Maryuri [id number] Cristal Hutson Maryuri 01/26/2007 2 [facility] [id number] Jamil Maryuri [id number] Cristal Hutson Maryuri 04/06/2024 1 MEDICARE B-OR: [facility] Cristal Hutson Maryuri [id number] Cristal Hutson Maryuri 11/26/2024 1 MEDICARE B-OR: [facility] Cristal Caryl Maryuri [id number] Cristal Hutson Maryuri 03/01/2014 2 [facility] - MEDICARE EXTENSION (INDEMNITY) [id number] Jamil Maryuri [id number] Cristal Hutson Maryuri Notes Date Note Type Note Provider Name and Address Organization Details Recorded Time 4 text/html HCTZ added Aug due to LE swelling bilatStopped hctz on September 24 due to increased serum Cr Started med for hallucination October 14, took 1 dose, then stopped knee pain worsening Dayton Bui NP [address] [place] [address], [phone], [facility] 10/28/2023 16:52:51 4 text/html ?ing uti, Pt reports lower abdominal pressure and urgency. Denies fevers, hematuria or fevers. \urinary frequencysuprapubic pressure now is on depends instead of a pad BP - monitor for a week, call, consider adding med USphysical therapy Dayton Bui NP [address] [place] [address], [phone], [facility] 04/03/2024 11:30:45 4 text/html doing PT and OT exercises dailyusing nasal spray daily in the morningusing depends nownow in wheelchair Dayton Bui NP [address] [place] [address], [phone], [facility] 05/03/2024 13:56:50 5 text/html vv-videoCOVID positive 08/13 last nightUnsure when sx began.Sx include cough, chest congestion, fatigue, slight SOB.Denies fevers or GI upset.has covid before- did paxlovidDr arethya started Nuplazid - has stopped before- did ok with hold of nuplazid in past Madonna Miner NP [address] [place], [phone], [facility] 08/14/2024 11:26:10 5 text/html had surgery 11/10, change batter for her deep brain stimulatorwas tired, hallucinating, fell out of wheelchair. Took 5 days to recover from gen anesthesia, and adjusting to the stimulatoris feeling internal tremors Friday the consult and preop HH, had labs doen here enrique Bui NP [address] [place], [phone], [facility] 11/30/2024 12:38:48 OBGyn Episode No OBEpisode recorded.
== END 2024-12-16 09:33 | disposition home or self-care (01) ==
LOC: HO.HSMS 08:40
PROVIDERS: PCP Nurse Practitioner Adult Health; Visit Provider Psychiatry & Neurology Neurology
DX: R41.89 Other symptoms and signs involving cognitive functions and awareness (principal); G20.B2 Parkinson's disease with dyskinesia, with fluctuations; Z96.82 Presence of neurostimulator
CPT/HCPCS: 95970; 99214; G2211

== ENCOUNTER → 2024-12-16 08:39 | Outpatient (BNVA) | payer MEDICARE, OTHER, SELFPAY | PROVIDERS: PCP Nurse Practitioner Adult Health; Visit Provider Psychiatry & Neurology Neurology | DX: F09 Unspecified mental disorder due to known physiological condition (principal); G20.B2 Parkinson's disease with dyskinesia, with fluctuations; Z96.89 Presence of other specified functional implants | CPT/HCPCS: 95970; 99212 ==

== ENCOUNTER 2025-06-23 14:49 | Outpatient (AMB) | payer MEDICARE, OTHER, SELFPAY ==
--- NOTE | 2025-06-23 14:50 | A.OFFVIS_ITS ---
Vital Signs 06/23/25 14:55 BP 132/90 H Blood Pressure Location Lt brachial Position Sitting Pulse 75 Pulse Source Pulse Oximeter Pulse Oximetry (%) 95 Oxygen Delivery Method Room Air Intake Visit Reasons: 6 mo follow up Intake Note: Follow up Cog disorder, Parkinson's disease with dyskinesia, with fluctuations s/p DBS placement Bologna Maker Required: No Accompanied by: Daughter Allergies latex Allergy (Mild, Verified 06/23/25 14:50) unknown Medication List - Last Reconciled 06/23/25 by Yuly Natarajan MD amantadine HCl 100 mg PO BID carbidopa-levodopa 25-100 mg 1 tab at 8 am and 11 am, 1.5 tabs at 2 pm and 5 pm orally .; 90 days carbidopa-levodopa 50-200 mg ER 1 tab PO BEDTIME citalopram 40 mg PO DAILY docusate sodium (Colace) 100 mg PO DAILY donepezil 5 mg PO DAILY fluticasone propionate 50 mcg/actuation (Flonase Allergy Relief) 1 spray intranasal BID ibuprofen 400 mg PO Q8H pimavanserin (Nuplazid) 34 mg PO DAILY polyethylene glycol 3350 (Miralax) 17 grams PO DAILY PRN HPI Comments Details: 84y/o female with parkinsons disease, cognitive impairment Bne DBS September 2018 comes for follow up after 6 mths Daughter thinks she missed doses- her neighbor who checks on her noticed increased tremors and had hallucinations. Her daughter noticed she missed the night meds which includes quetiapine she bonds spill box and alarm on the phone and usually does not miss. she is wheel chair bound she has help 6 days a week History from initial visit- SHe restarted nuplazid when he hallucinations increased. .Her hallucinations are mild now and usually in the evening. she frequently misses her doses of medications. when she misses multiple doses she starts with sundowning and hallucinations. Her daughter lives with her. Bowel movements are stable- once every 4 days she has been breathing heavy and wheezing . Her daughter feels she has labored breathing . Mood is stable - has on and off depression she has help with her morning personal hygiene. she is doing the exercises at home. she used to play cards . she has a friend that takes her to lunch weekly shopping. [facility] Medical History Parkinson's disease with dyskinesia, with fluctuations Cognitive disorder Arthritis Aneurysm of internal carotid artery Surgical History S/P deep brain stimulator placement No pertinent past surgical history Social History Alcohol intake: current Patient Tobacco Use Status: Never used Tobacco Physical Exam Vital Signs: Last Vital Signs Pulse 75 06/23/25 14:55 BP 132/90 H 06/23/25 14:55 Pulse Ox 95 06/23/25 14:55 Oxygen Delivery Method Room Air 06/23/25 14:55 Const General: cooperative, healthy appearing and comfortable Orientation/consciousness: patient oriented x3 HEENT Head: Yes normal to inspection Neuro Other: mild decreased blink and facial expression speech- softer No tremors FFM and foot taps decreased mildly L>R In wheel chair General: patient oriented x3 Assessment & Plan Assessment & Plan (1) Parkinson's disease with dyskinesia, with fluctuations: Code(s): G20.B2 - Parkinson's disease with dyskinesia, with fluctuations Category: Medical (2) Cognitive disorder: Code(s): F09 - Unspecified mental disorder due to known physiological condition Category: Medical (3) S/P deep brain stimulator placement: Comment: 2024 Code(s): Z96.89 - Presence of other specified functional implants Category: Surgical Plan Sinemet 25/100 1 -1-1.5-1.5 sinemet CR 50/200 qhs amantadine 100mg bid Nuplazid 34 mg qhs Aricept 5 md wqd miralax for constipation Citalopram 40mg qd will check her DBS next visit Medications: Refilled pimavanserin (Nuplazid) 34 mg PO DAILY 30 caps 6RF G20.B2 - Parkinson's disease with dyskinesia, with fluctuations, R44.1 - Visual hallucinations Coding Level of Care Code Est Pt Level 4 (68142) Add On Problem Visit Only Diagnoses Parkinson's disease with dyskinesia, with fluctuations G20.B2 Cognitive disorder F09 S/P deep brain stimulator placement Z96.89
[2025-06-23 14:55] VITALS: BP 132/90; PULSE 75; O2SAT 95
--- OUTSIDE RECORDS SUMMARY | 2025-06-23 18:55 | XMS_ITS | Encounter Summary ---
Author Organization [facility] Address [address] [place] [address] Phone Care Team Providers Care Test Cell Technician Name Role Phone Unknown, Unknown Primary Care Provider Jxaon Coelho MD Primary Care Provider [phone] Ani Bui NP Primary Care Pro vider Jaxon Morelos MD Unavailable [phone] Reason for Referral * MRI/CAT Scan - Closed Specialty Diagnoses / Procedures Referred By Roxi maher Referred To Contact Radiology Diagnoses Parkinson's disease Procedures MRI Brain Yuly Natarajan MD Phone: tel: fax: Referral ID Status Reason Start Date Expiration Date Visits Re quested Visits Authorized [id number] Closed 05/16/2017 05/16/2018 1 1 Encounter Details Date Type Department Care Team ([facility] st Contact Info) Description 05/16/2017 Ancillary Orders Virtual Department [address] [place] [address] Yuly Natarajan MD [address] [place] [address] [place] [id number] Parkinson's disease Social History Tobacco Use Types Packs/Day Years Used Date Smoking Tobacco: Never Assessed Comments Unknown Sex and Gender Information Value Date Recorded Sex Assigned at Not on file Legal Sex Female 10:12 PM EDT Gender Identity Not on file Sexual Orientation Not on file documented as of this encounter Plan of Treatment Not on file documented as of this encounter Results * MRI BRAIN WITHOUT CONTRAST (05/23/2017 3:39 PM EST) Anatomical Region Laterality Modality Head Magnetic Resonan ce 05/23/2017 3:28 PM EST Impressions 05/23/2017 3:45 PM EST 1. Nonspecific mild white matter disease most likely secondary to chronic small vessel vessel ischemia. 2. Sinus disease. POS - [id number] Narrative 05/23/2017 3:45 PM EST COMPARISON: None. TECHNIQUE: Exam performed on a 1.5 Kalpana high-field MRI scanner. Axial T1, T2, T2*, T2 FLAIR and diffusion-weighted imaging with ADC map, sagittal T1 sequences were obtained. MRI HEAD FINDINGS: No cerebellar tonsil herniation. Pituitary gland is not enlarged. No restricted diffusion to indicate acute or subacute ischemia. No intraparenchymal susceptibility artifact to indicate hemorrhage. There is no intra-axial mass, midline shift, mass-effect or extra-axial fluid collections. 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 There are multiple small scattered T2 hyperintense signal abnormalities throughout the periventricular white matter. Focal cortical atrophy in the superior posterior right parietal lobe. No hydrocephalus. Normal vascular flow-voids. Left lens is not visualized presumably secondary to prior cataract surgery. No acute orbital findings. Mastoid air cells are clear. Mild ethmoid and maxillary sinus mucosal thickening with a small right maxillary sinus air-fluid level versus retention cyst. Soft tissue and bone marrow are within normal limits. Procedure Note Tasha Duarte MD - 05/23/2017 COMPARISON: None. TECHNIQUE: Exam performed on a 1.5 Kalpana high-field MRI scanner. AxialT1, T2, T2*, T2 FLAIR and diffusion-weighted imaging with ADC map,sagittal T1 sequences were obtained. MRI HEAD FINDINGS: No cerebellar tonsil herniation. Pituitary gland is not enlarged. Norestricted diffusion to indicate acute or subacute ischemia. Nointraparenchymal susceptibility artifact to indicate hemorrhage. There isno intra-axial mass, midline shift, mass-effect or extra-axial fluidcollections. Incidental camilla-cisterna magna in the posterior fossa.There are multiple small scattered T2 hyperintense signal abnormalitiesthroughout the periventricular white matter. Focal cortical atrophy inthe superior posterior right parietal lobe. No hydrocephalus. Normalvascular flow-voids. Left lens is not visualized presumably secondary toprior cataract surgery. No acute orbital findings. Mastoid air cells areclear. Mild ethmoid and maxillary sinus mucosal thickening with a smallright maxillary sinus air-fluid level versus retention cyst. Soft tissueand bone marrow are within normal limits. IMPRESSION: 1. Nonspecific mild white matter disease most likely secondary to chronicsmall vessel vessel ischemia. 2. Sinus disease. POS - [id number] Yuly Natarajan MD IMG MR HEAD/NECK Final Result documented in this encounter Visit Diagnoses Diagnosis Parkinson's disease Paralysis agitans Parkinson's disease Paralysis agitans documented in this encounter Additional Health Concerns Infection Onset Date Last Indicated Resolved Time CoV-Risk 01/13/2020 01/14/2020 01/27/2020 3:21 AM EDT CoV-Risk 07/23/2023 07/23/2023 08/03/2023 1:21 AM EST documented as of this encounter Care Teams Test Cell Technician Relationship Specialty Start Date End Date Unknown, Unknown, MD PCP - General 05/16/17 05/22/17 Jaxon Morelos MD [address] [place] [phone] [email or web address] PCP - General Family Medicine 05/23/17 01/12/20 Ani Bui NP [address] [place] [phone] [email or web address] PCP - General Family Medicine 01/13/20 Jaxon Morelos MD [address] [place] [phone] [email or web address] 01/13/20 documented as of this encounter Additional Source Comments The information contained in this document represents components of the legal health record. It is not the complete legal health record.[facility]
--- OUTSIDE RECORDS SUMMARY | 2025-06-23 18:55 | XMS_ITS | Encounter Summary ---
Author Organization [facility] Address [address] [place] [address] [place] [address] Phone Care Team Providers Care Physical Therapist Technician Name Role Phone Ani Bui NP Primary Care Pro vider Jaxon Morelos MD Unavailable [phone] Encounter Details Date Type Department Care Team (Late st Contact Info) Description 10/22/2020 Procedure Pass [facility], Ct Scan - [address] [address] Social History Tobacco Use Types Packs/Day Years Used Date Smoking Tobacco: Former Smokeless Tobacco: Never Comments:quit 1999 Alcohol Use Standard Drinks/Week Comments Yes 0 (1 standard drink = 0.6 oz pur e alcohol) Comments No Sex and Gender Information Value Date Recorded Sex Assigned at Not on file Legal Sex Female 10:12 PM EDT Gender Identity Not on file Sexual Orientation Not on file documented as of this encounter Functional Status * Calculated C-SSRS Risk Score (Lifetime/Recent) Answer Date of Assessment Author No Risk Indicated 10/22/2020 8:09 PM EDT Felipe Campos RN * [place] Suicide Severity Rating Scale (Screener/Recent Self-Report) Question Answer Date of Assessment Author 1. Wish to be (Past 1 Month) No 021 8:09 PM NERYT Felipe Campos RN 2. Non-Specific Active Suici jorden Thoughts (Past 1 Month) No 10/22/2020 8:09 PM NERYT Felipe Campos RN 6. Suicidal Behavior (Lifetime) No 8:09 PM EDT Felipe Campos RN documented as of this encounter Plan of Treatment Not on file documented as of this encounter Visit Diagnoses Not on filedocumented in this encounter Additional Health Concerns Infection Onset Date Last Indicated Resolved Time CoV-Risk 07/23/2023 07/23/2023 08/03/2023 1:21 AM EST documented as of this encounter Care Teams Physical Therapist Technician Relationship Specialty Start Date End Date Ani Bui NP [address] [place] [address] [email or web address] PCP - General Family Medicine 01/13/20 Jaxon Morelos MD [address] [place] [phone] [email or web address] 01/13/20 documented as of this encounter Additional Source Comments The information contained in this document represents components of the legal health record. It is not the complete legal health record.[facility]
--- OUTSIDE RECORDS SUMMARY | 2025-06-23 18:55 | XMS_ITS | Encounter Summary ---
Author Organization [facility] Address [address] [place] [address] [place] [address] Phone Care Team Providers Care Staff Nurse Icu Resource Team Name Role Phone Ani Bui NP Primary Care Pro vider Jaxon Morelos MD Unavailable [phone] Encounter Details Date Type Department Care Team (Late st Contact Info) Description 10/22/2020 Procedure Pass [facility], Ct Scan - [address] [address] Social History Tobacco Use Types Packs/Day Years [...] 8:09 PM EDT Felipe Campos RN * [place] Suicide Severity Rating Scale (Screener/Recent Self-Report) Question [...] documented as of this encounter Care Teams Staff Nurse Icu Resource Team Relationship Specialty Start Date End Date Ani Bui NP [address] [place] [phone] [email or web address] PCP - General Family Medicine 01/13/20 Jaxon Morelos MD [address] [place] [phone] [email or web address] 01/13/20 documented as of this encounter Additional Source Comments The information contained in this document represents components of the legal health record. It is not the complete legal health record.[facility]
--- OUTSIDE RECORDS SUMMARY | 2025-06-23 18:55 | XMS_ITS | Clinical Summary ---
Author Organization [facility] Address [address] [place] [address] Care Team Providers Care Pan Pusher Name Role Phone Yuly Natarajan MD Primary Care Provider [phone] Lola Laura RN Unavailable [phone] Allergies Active Allergy Reactions Criticality Noted Date Comments Latex Rash/Dermatitis Low 12/14/2018 Medications amantadine (SYMMETREL) 100 MG capsule Take 1 capsule (100 mg total) by mouth 2 (two) times a day. 3 10/15/2018 Active carbidopa-levod opa (SINEMET CR) 50-200 MG per tablet Take 1 tablet by mouth nightly. Active citalopram (CeleXA) 20 MG tablet Take 2 tablets (40 mg total) by mouth nightly. 4 11/09/2018 Active carbidopa-levod opa ER (SINEMET CR) 25-100 MG per tabletIndicatio ns:Parkinsonism Take 1 tablet by mouth 4 (four) times a day. Active pimavanserin (Nuplazid) 34 MG capsuleIndicati ons:Psychosis Take 1 capsule (34 mg total) by mouth every evening. Active donepezil (ARICEPT) 5 MG tabletIndicatio ns:Parkinson's Disease Dementia Take 1 tablet (5 mg total) by mouth. Active ibuprofen (MOTRIN) 200 MG tablet Take 1 tablet (200 mg total) by mouth 4 times daily (every 6 hours) as needed for mild pain. Active polyethylene glycol 17 g packet Take 1 packet (17 g total) by mouth daily. Active guaiFENesin (MUCINEX) 600 MG 12 hr tablet Take 2 tablets (1,200 mg total) by mouth 2 (two) times a day. Active Active Problems Problem Noted Date Diagnosed Date Parkinson's disease 12/14/2018 Assessment & Plan (11/08/2024 1:04 PM EDT): Symptoms poorly managed with failed neurostimulator battery. Patient remains on Sinemet CR as prescribed by Neurology and is scheduled for battery change on 11/10/2024. Brain aneurysm 12/14/2018 Arthritis of left knee 12/14/2018 Overview (12/14/2018): Cortisone shot and 40cc of fluid removed Dec 02 2018 Social History Tobacco Use Types Packs/Day Years [...] Sign Reading Time Taken Comments Blood Pressure 120/75 11/26/2024 2:49 PM EDT Pulse 69 11/26/2024 2:49 PM EDT Temperature 36.3 C (97.3 F) 11/26/2024 2:49 PM EDT Respiratory Rate 17 11/10/2024 1:00 PM EDT Oxygen Saturation 94% 11/26/2024 2:49 PM EDT Inhaled Oxygen Concentration - - Weight 83.9 kg (185 lb) 11/08/2024 11:41 AM EDT stated Height 162.6 cm (5' 4 ) 11/26/2024 2:49 PM EDT Body Mass Index 31.74 11/08/2024 11:41 AM EDT Plan of Treatment Health Maintenance Due Date Last Done Comments Advance Care Planning 1940 DTaP/Tdap/Td Vaccines (1 - Tdap) 12/14/1958 Pneumococcal Vaccines 50+ (1 of 1 - PCV) 12/14/1989 Zoster (Shingles) Vaccine (1 of 2) 12/14/1989 DXA Bone Density (Females,Ag es 65 and older) 12/14/2004 RSV Vaccine 50 years and old er and Patients (1 - 1-dose 75+ series) 12/14/2014 Influenza Vaccine 02/04/2025 COVID-19 Vaccine ( - 2024-2 6 season) 2025 Hepatitis B Vaccines Aged Out No long er eligible based on patient's age to complete this topic Medical Devices Implanted Type Area Blacksmith Hammer Operator Device Identifier Shelf Expiration Date Model / Serial / Lot Stimulator Stimulator Brain [id number] Neurostimulator Implant 68mm X 51mm Percept 2 Chnl 61g Deep - [id number] Implanted:Qty: 1 on 11/10/2024 by Tracy Payton MD at [facility] Stimulator N/A: Chest Wall [employer] [place] [id number] / / [id number] Supervisor Stave Cutting Neurostimulator Percept Patient - [id number] Implanted:Qty: 1 on 11/10/2024 at [facility] Stimulator [employer] IN [id number] / / [id number] Envelope Absorbable Lg 3.35x3in Polyarylate Minocycline - [id number] Implanted:Qty: 1 on 11/10/2024 by Tracy Payton MD at [facility] Tissue N/A: Chest [employer] IN [id number] / / Insurance MEDICARE PART A & B [facility] Advance Directives * Full Code (Latest Code Status on File) Date Activated Date Inactivated Comments 11/10/2024 9:39 AM Care Teams Pan Pusher Relationship Specialty Start Date End Date Yuly Natarajan MD [address] [address] PCP - General Neurology 11/10/24 Lola Laura, RN [address] [place] [phone] Registered Nurse Surgery, Neurosurgery 11/12/24
--- OUTSIDE RECORDS SUMMARY | 2025-06-23 18:55 | XMS_ITS | Clinical Summary ---
Author Organization [facility] Address [address] [place] [address] Phone Care Team Providers Care Surgery Technician Name Role Phone Ani Bui NP Primary Care Pro vider Jaxon Morelos MD Unavailable Allergies Active Allergy Reactions Criticality Noted Date Comments Latex Rash,Itching Low 09/17/2018 Mercaptobenzothiazole Rash Low 09/25/2017 Mercaptopurine Analogues (Thiopurines) Rash Low 09/25/2017 Thiuram Analogues Rash Low 09/25/2017 Medications amantadine HCl (SYMMETREL) 100 mg capsule Take 100 mg by mouth 2 (two) times a day. Active carbidopa-levod opa (SINEMET) 25-100 mg per tablet Take 1.5 tablets by mouth 4 (four) times a day. Active carbidopa-levod opa (SINEMET CR) 50-200 mg per CR tablet Take 1 tablet by mouth nightly. Active senna-docusate (GAIL-COLACE) 8.6-50 mg Take 1 tablet by mouth 2 (two) times a day. Active ibuprofen (ADVIL,MOTRIN) 200 MG tablet Take 200 mg by mouth 2 (two) times a day (once in the morning and once in the afternoon). 08/02/2021 Active polyethylene glycol (MIRALAX) 17 gram/dose powder Take 17 g by mouth nightly at bedtime as needed (constipatio n). 09/17/2018 Active citalopram (CELEXA) 40 MG tablet Take 40 mg by mouth daily. 09/28/2020 Active donepeziL (ARICEPT) 5 MG tablet Take 5 mg by mouth nightly at bedtime. 08/02/2021 Active Active Problems Problem Noted Date Diagnosed Date Parkinson disease 01/12/2019 Osteoarthritis of knees, bilateral 01/12/2019 Overview (01/12/2019): Left more painful than right Immunizations Immunization Administration Dates Next Due Tdap 10/22/2020 Family History Medical History Relation Comments Cancer Daughter Dementia Mother Hypertension Mother Cancer Sister Relation Status Comments Daughter Mother Sister Social History Tobacco Use Types Packs/Day Years Used Date Smoking Tobacco: Former Smokeless Tobacco: Never Comments:quit 1999 Alcohol Use Standard Drinks/Week Comments Yes 0 (1 standard drink = 0.6 oz pur e alcohol) Education Answer Date Recorded Are you interested in more education? Not on joel e 11/01/2022 Are you concerned about learning? Not on file 11/01/2022 No 11/01/2022 No 11/01/2022 Digital Access Answer Date Recorded No 11/30/2022 No 11/30/2022 No 11/30/2022 Reliable internet access at home? Not on file 11/30/2022 Device with a working camera? Not on file Comments No Sex and Gender Information Value Date Recorded Sex Assigned at Not on file Legal Sex Female 10:12 PM EDT Gender Identity Not on file Sexual Orientation Not on file Last Filed Vital Signs Vital Sign Reading Time Taken Comments Blood Pressure 99/64 07/23/2023 4:56 PM EST Pulse 82 07/23/2023 4:56 PM EST Temperature 36.7 C (98.1 F) 07/23/2023 4:56 PM EST Respiratory Rate 18 07/23/2023 4:56 PM EST Oxygen Saturation 96% 07/23/2023 4:56 PM EST Inhaled Oxygen Concentration - - Weight 85.7 kg (189 lb) 07/23/2023 10:38 AM EST Height 165.1 cm (5' 5 ) 07/23/2023 10:38 AM EST Body Mass Index 31.45 07/23/2023 10:38 AM EST Plan of Treatment Health Maintenance Due Date Last Done Comments DEPRESSION SCREENING 1951 OSTEOPOROSIS SCREENING INITIAL (ONE-TIME) 12/14/2004 PNEUMOCOCCAL VACCINES (50+ years) (2 of 2 - PCV) 09/25/2005 09/25/2004 ZOSTER VACCINES (2 of 3) 04/06/2007 02/09/2007 RSV VACCINE (1 - 1-dose 75+ series) 12/14/2014 INFLUENZA VACCINE (#1) 2025 9, 04/13/2018, 05/19/2017, Additional history exists COVID-19 VACCINE (3 - season) 2025 08/30/2020, 08/09/2020 Adult Td,Tdap Booster 10/22/2030 10/22/2020, 005 HEPATITIS A VACCINES Aged Out No long er eligible based on patient's age to complete this topic HIB VACCINES Aged Out No longer eligi ble based on patient's age to complete this topic MENINGOCOCCAL VACCINES (ACWY) Aged Out No longer eligible based on patient's age to complete this topic MENINGOCOCCAL VACCINES (B) Aged Out N o longer eligible based on patient's age to complete this topic Medical Devices Not on file Insurance MEDICARE PART A & B Member Subscriber Plan / Payer (Ef fective 2004-Present) Name:Cristal Wahl Member ID:[id number] Relation to Subscriber:Self Name:Cristal Wahl Subscriber ID:[id number] Payer ID:[id number] Group ID:Not on file Type:Medicare Address: [facility] [employer] [facility] [address] [facility] [phone] [facility] MEDICARE SUPPLEMENT MEDICARE PART A & B [employer] MEDICARE SUPPLEMENT MEDICARE PART A & B [employer] MEDICARE SUPPLEMENT MEDICARE PART A & B [facility] MEDICARE SUPPLEMENT MEDICARE PART A & B [facility] [place] [address] [place] [address] MEDICARE PART A & B [facility] MEDICARE SUPPLEMENT MEDICARE PART A & B [employer] MEDICARE SUPPLEMENT MEDICARE PART A & B [employer] MEDICARE SUPPLEMENT MEDICARE PART A & B [facility] [place] [address] Care Teams Surgery Technician Relationship Specialty Start Date End Date Ani Bui NP [address] [place] [address] [place] [address] [email or web address] PCP - General Family Medicine 01/13/20 Jaxon Morelos MD [address] [place] [address] [place] [phone] [email or web address] 01/13/20 Additional Source Comments The information contained in this document represents components of the legal health record. It is not the complete legal health record.[facility]
--- OUTSIDE RECORDS SUMMARY | 2025-06-23 18:55 | XMS_ITS | Encounter Summary ---
Author Organization [facility] Address [address] [place] [address] [place] [address] Phone Care Team Providers Care Vehicle Washer Name Role Phone Ani Bui NP Primary Care Pro vider Jaxon Morelos MD Unavailable [phone] Encounter Details Date Type Department Care Team (Late st Contact Info) Description 07/23/2023 Procedure [facility], Ct Scan - [address] [address] Social History Tobacco Use Types Packs/Day Years [...] documented as of this encounter Care Teams Vehicle Washer Relationship Specialty Start Date End Date Ani Bui NP [address] [place] [phone] [email or web address] PCP - General Family Medicine 01/13/20 Jaxon Morelos MD [address] [place] [phone] [email or web address] 01/13/20 documented as of this encounter Additional Source Comments The information contained in this document represents components of the legal health record. It is not the complete legal health record.[facility]
--- OUTSIDE RECORDS SUMMARY | 2025-06-23 18:55 | XMS_ITS | Encounter Summary ---
Author Organization [facility] Address [address] [place] [address] Care Team Providers Care Issuing Operator Name Role Phone Pcp, No Primary Care Provider Yuly Vaz MD Primary Care Provider [phone] Lola Laura RN Unavailable [phone] Encounter Details Date Type Department Care Team (Late st Contact Info) Description 11/08/2024 Scanned Document [facility] Neurosurgery [place] [address] [facility] [address] [place] [phone] Tracy Payton MD [address] [facility] [place] [address] [place] [address] [phone] Social History Tobacco Use Types Packs/Day Years [...] as of this encounter Functional Status * AUDIT-C Score Answer Date of Assessment Author 1 11/08/2024 11:22 AM Yvan Burnett RN * Question Answer Date of Assessment Author AUDIT-C Total Score - Female 1 11/08/2024 11:22 AM Sameera Burnett RN Q1: How often do you have a drink containing alcohol? Monthly or less 11/08/2024 11:22 AM Sameera Burnett RN Q2: How many drinks containing alcohol do you have on a typical day when you are drinking? 1 or 2 11/08/2024 11:22 AM Sameera Burnett RN Q3: How often do you have six or more drinks on one occasion? Never 11/08/2024 11:22 AM Sameera Burnett RN documented as of this encounter Plan of Treatment Not on file documented as of this encounter Visit Diagnoses Not on filedocumented in this encounter Care Teams Issuing Operator Relationship Specialty Start Date End Date Pcp, [address] [place] [address] PCP - General 11/25/18 11/09/24 Yuly Natarajan MD [address] [place] [phone] PCP - General Neurology 11/10/24 Lola Laura RN [address] [place] [phone] Registered Nurse Surgery, Neurosurgery 11/12/24 documented as of this encounter
--- OUTSIDE RECORDS SUMMARY | 2025-06-23 18:55 | XMS_ITS | Encounter Summary ---
Author Organization [facility] Address [address] [facility] [address] [place] [phone] Phone Care Team Providers Care Harness Tier Name Role Phone Ani Bui NP Primary Care Pro vider Jaxon Morelos MD Unavailable [phone] Encounter Details Date Type Department Care Team (Latest Contact Info) Description 01/13/2020 Transcribe Orders Virtual Department [address] [place] [address] Ani Bui NP [address] [place] [address] [email or web address] Cough (Primary Dx); Diarrhea, unspecified type Social History Tobacco Use Types Packs/Day Years Used Date Smoking Tobacco: Never Assessed Comments Unknown Sex and Gender Information Value Date Recorded Sex Assigned at Not on file Legal Sex Female 10:12 PM EDT Gender Identity Not on file Sexual Orientation Not on file documented as of this encounter Plan of Treatment Not on file documented as of this encounter Results * COVID-19 PCR Order (01/14/2020 4:54 PM EDT) Specimen Source NASOPHARYNGEAL SWAB ([employer]) [facility] COVID-19 Comment DIARRHEA [facility] COVID Testing Status Sent to [facility] Other 01/14/2020 4:54 PM EDT 01/14/2020 5:02 PM EDT us Ani Bui [employer] LAB GENERAL ORDER [place] Final Result [facility] [address] [place] [address] documented in this encounter Visit Diagnoses Diagnosis Cough- Primary Diarrhea, unspecified type documented in this encounter Additional Health Concerns Infection Onset Date Last Indicated Resolved Time CoV-Risk 01/13/2020 01/14/2020 01/27/2020 3:21 AM EDT CoV-Risk 07/23/2023 07/23/2023 08/03/2023 1:21 AM EST documented as of this encounter Care Teams Harness Tier Relationship Specialty Start Date End Date Ani Bui NP [address] [place] [phone] [email or web address] PCP - General Family Medicine 01/13/20 Jaxon Morelos MD [address] [place] [phone] [email or web address] 01/13/20 documented as of this encounter Additional Source Comments The information contained in this document represents components of the legal health record. It is not the complete legal health record.[facility]
--- OUTSIDE RECORDS SUMMARY | 2025-06-23 18:55 | XMS_ITS ---
Author Name [facility] Organization Unknown Results Test Name/Text Value Interpretation Date Range Source GFR/BSA.pred SerPlBld [id number]-QeOZpl 73.0 11/08/2024 59 - [facility] BUN SerPl-mCnc 21.0 mg/dL 11/08/2024 8 - [address] Sodium SerPl-sCnc 144.0 mmol/L 11/08/2024 136 - 14 5 [facility] BUN/Creat SerPl 26.0 Ratio Above high normal 11/08/2024 10 - 25 [facility] Potassium SerPl-sCnc 4.4 mmol/L 11/08/2024 3.4 - 5 .3 [facility] Anion Gap Bld-sCnc 14.0 11/08/2024 7 - 17 [facility] Glucose SerPl-mCnc 83.0 mg/dL 11/08/2024 65 - 99 [facility] Calcium SerPl-mCnc 9.2 mg/dL 11/08/2024 8.7 - 10.5 [facility] CO2 SerPl-sCnc 25.0 mmol/L 11/08/2024 22 - 33 HH CCT Creat SerPl-mCnc 0.8 mg/dL 11/08/2024 0.4 - 1.1 [facility] Chloride SerPl-sCnc 105.0 mmol/L 11/08/2024 98 - 1 07 [facility] Basophils/leuk NFr Bld Auto 0.8 % 11/08/2024 [facility] Eosinophil num Bld Auto 0.07 Thou/uL 11/08/2024 0 - 0.7 [facility] Monocytes/leuk NFr Bld Auto 11.9 % 11/08/2024 [facility] Imm Granulocytes num Bld Auto 0.02 Thou/uL 11/08/2024 0 - 0.1 [facility] Imm Granulocytes/leuk NFr Bld Auto 0.3 % 11/08/2024 [facility] PMV Bld Auto 11.1 fL 11/08/2024 7.5 - 12.5 [facility] Hgb Bld-mCnc 13.1 g/dL 11/08/2024 11.7 - 15.7 [facility] T MCHC RBC Auto-mCnc 33.4 g/dL 11/08/2024 30 - 36 [facility] MCV RBC Auto 93.0 fL 11/08/2024 80 - 100 [facility] Neutrophils/leuk NFr Bld Auto 72.5 % 11/08/2024 [facility] Monocytes num Bld Auto 0.79 Thou/uL 11/08/2024 0.2 - 1.5 [facility] Eosinophil/leuk NFr Bld Auto 1.1 % 11/08/2024 [facility] Hct VFr Bld Auto 39.2 % 11/08/2024 35 - 47 HH CCT MCH RBC Qn Auto 31.0 pg 11/08/2024 27 - [address] Basophils num Bld Auto 0.05 Thou/uL 11/08/2024 0 - 0.2 [facility] Lymphocytes num Bld Auto 0.89 Thou/uL Below low normal 11/08/2024 1.5 - 4.5 [facility] Neutrophils num Bld Auto 4.8 Thou/uL 11/08/2024 2 - 7.5 [facility] Platelet num Bld Auto 306.0 Thou/uL 11/08/2024 150 - 450 [facility] RBC num Bld Auto 4.22 Mil/uL 11/08/2024 4 - 5.4 [facility] WBC num Bld Auto 6.6 Thou/uL 11/08/2024 4 - 11 [facility] Lymphocytes/leuk NFr Bld Auto 13.4 % 11/08/2024 [facility] RDW RBC Auto-Rto 13.5 % 11/08/2024 11.5 - 14.5 [facility] History of Medication Use Medication Directions Dispensed Refills Start Date End Date Stat cephalexin (KEFLEX) 500 MG capsule Take 1 capsule (500 mg total) by mouth 2 (two) times a day. 11/10/2024 active oxyCODONE (ROXICODONE) 5 MG immediate release tablet Take 0.5 tablets (2.5 mg total) by mouth 4 times daily (every 6 hours) as needed for moderate pain or severe pain. Max Daily Amount: 10 mg 11/10/2024 active sulfamethoxazole-tri methoprim (BACTRIM DS,SEPTRA DS) 800-160 MG per tablet Take 1 tablet by mouth 2 (two) times a day. 11/10/2024 active citalopram (CeleXA) 20 MG tablet Take 20 mg by mouth daily. 11/09/2018 active citalopram (CeleXA) 20 MG tablet Take 2 tablets (40 mg total) by mouth nightly. 11/09/2018 active amantadine (SYMMETREL) 100 MG capsule Take 1 capsule (100 mg total) by mouth 2 (two) times a day. 10/15/2018 active carbidopa-levodopa (SINEMET CR) 50-200 MG per tablet Take 1 tablet by mouth. active carbidopa-levodopa ER (SINEMET CR) 25-100 MG per tablet Take 1 tablet by mouth 4 (four) times a day. suspended donepezil (ARICEPT) 5 MG tablet Take 1 tablet (5 mg total) by mouth. suspended guaiFENesin (MUCINEX) 600 MG 12 hr tablet Take 2 tablets (1,200 mg total) by mouth 2 (two) times a day. active ibuprofen (MOTRIN) 200 MG tablet Take 1 tablet (200 mg total) by mouth 4 times daily (every 6 hours) as needed for mild pain. suspended pimavanserin (Nuplazid) 34 MG capsule Take 1 capsule (34 mg total) by mouth every evening. suspended polyethylene glycol 17 g packet Take 1 packet (17 g total) by mouth daily. active Allergies Allergen Reaction Severity Comment Documented Date Source Statu s LATEX RASH/DERMATITIS 12/14/2018 [facility] Problems Problem Status Onset Date Problem Type Date of Resoluti on Source Brain aneurysm active 2018-12-14 ProblemAct [facility] Parkinson's disease active 2018-12-14 ProblemAct [facility] Arthritis of left knee active 2018-12-14 ProblemAct [facility] Encounters Encounter Type Encounter Reason Primary Diagnosis Location Date Ambulatory Parkinson's disease without dyskinesia, without mention of fluctuations Parkinson's disease without dyskinesia, without mention of fluctuations [facility] 11/26/2024 Ambulatory Parkinson's disease without dyskinesia, without mention of fluctuations Parkinson's disease without dyskinesia, without mention of fluctuations [facility] 11/10/2024 Ambulatory Encounter for other preprocedural examination Encounter for other preprocedural examination [facility] 11/08/2024 Ambulatory Parkinson's disease without dyskinesia, without mention of fluctuations Parkinson's disease without dyskinesia, without mention of fluctuations [facility] 11/08/2024 Care Team Organization Name Specialty Phone Email Start Date End Da birgit [facility] LYNNE MARCUM Primary Care 11/10/2024 [facility] PCP [employer] 11/08/2024 12/25/2024 [facility] NO PCP Primary Care 11/02/2024
--- OUTSIDE RECORDS SUMMARY | 2025-06-23 18:55 | XMS_ITS | Encounter Summary ---
Author Organization [facility] Address [address] [facility] [address] [place] [phone] Phone Care Team Providers Care Enologist Name Role Phone Unknown, Unknown Primary Care Provider Jaxon Coelho MD Primary Care Provider [phone] Ani Bui NP Primary Care Pro vider Jaxon Morelos MD Unavailable [phone] Encounter Details Date Type Department Care Team (Late st Contact Info) Description 05/16/2017 Procedure Pass [facility], [address] [place] [address] Social History Tobacco Use Types Packs/Day Years [...] documented as of this encounter Care Teams Enologist Relationship Specialty Start Date End Date Unknown, Unknown, PCP - General 05/16/17 05/22/17 Jaxon Morelos MD [address] [place] [phone] [email or web address] PCP - General Family Medicine 05/23/17 01/12/20 Ani Bui NP [address] [place] [phone] [email or web address] PCP - General Family Medicine 01/13/20 Jaxon Morelos MD [address] [place] [phone] [email or web address] 01/13/20 documented as of this encounter Additional Source Comments The information contained in this document represents components of the legal health record. It is not the complete legal health record.[facility]
--- OUTSIDE RECORDS SUMMARY | 2025-06-23 18:55 | XMS_ITS | Encounter Summary ---
Author Organization [facility] Address [address] [place] [address] Care Team Providers Care Manager Pharmacy Name Role Phone Pcp, No Primary Care Provider Yuly Vaz MD Primary Care Provider [phone] Lola Laura RN Unavailable [phone] Encounter Details Date Type Department Care Team (Late st Contact Info) Description 11/08/2024 Scanned Document [facility] Neurosurgery [place] [address] [facility] [address] [place] [phone] Tracy Payton MD [address] [facility] [place] [address] [place] [address] [phone] Social History Tobacco Use Types Packs/Day Years [...] on filedocumented in this encounter Care Teams Manager Pharmacy Relationship Specialty Start Date End Date Pcp, [address] [place] [address] PCP - General 11/25/18 11/09/24 Yuly Natarajan MD [address] [place] [phone] PCP - General Neurology 11/10/24 Lola Laura RN [address] [phone] Registered Nurse Surgery, Neurosurgery 11/12/24 documented as of this encounter
== END 2025-06-23 15:25 | disposition home or self-care (01) ==
LOC: HO.HSMS 14:49
PROVIDERS: PCP Nurse Practitioner Adult Health; Visit Provider Psychiatry & Neurology Neurology
DX: G20.B2 Parkinson's disease with dyskinesia, with fluctuations (principal); R41.89 Other symptoms and signs involving cognitive functions and awareness; Z96.82 Presence of neurostimulator
CPT/HCPCS: 99214; G2211

== ENCOUNTER → 2025-06-23 14:49 | Outpatient (BNVA) | payer MEDICARE, OTHER, SELFPAY | PROVIDERS: PCP Nurse Practitioner Adult Health; Visit Provider Psychiatry & Neurology Neurology | DX: G20.B2 Parkinson's disease with dyskinesia, with fluctuations (principal); F09 Unspecified mental disorder due to known physiological condition; Z96.89 Presence of other specified functional implants | CPT/HCPCS: 99212 ==